=== PATIENT | female | born 1950 | race Caucasian/White ===

== ENCOUNTER 2024-04-28 13:01 | Inpatient (IN) ==
--- NOTE | 2024-04-28 13:17 | Emergency Department Note ---
Impression & Plan Bilateral lower leg cellulitis, Lymphedema ED Provider Note NAME: JOANNE JURADO AGE: 73 SEX: F : 1950 ARRIVES VIA: Walk-In INFORMANT: Patient, ED PROVIDER(S): Amos Webber MD CHIEF COMPLAINT: Bilateral leg swelling, weight gain, bilateral lower extremity redness MEDICAL DECISION MAKING: Patient presents due to concern for bilateral lower extremity edema with associated erythema bilaterally. IV was established and blood work was obtained. Patient was ordered IV Rocephin. Patient has a normal white count hemoglobin of 10.4 with normal platelet count. Kidney function is unremarkable. Procalcitonin is not elevated. Given the patient's significant swelling to believe the patient would benefit from IV diuresis. The patient was ordered IV Lasix 40 mg. I did speak the on-call hospitalist service and the patient was admitted to the medicine service. Discussion w/ other healthcare providers: Tierney Aguilera PA-C with Dr. Foster Prior /Outside records reviewed: I reviewed an outpatient visit note in the office patient is had ongoing redness and swelling in the legs. Patient was on Keflex but without significant improvement symptoms it is gained 15 pounds. No shortness of breath. Patient was seen by Enedelia Parrish PA-C. Reported low-grade temperature. Differential diagnosis: Cellulitis, abscess, MRSA infection, DVT, necrotizing fasciitis, dermatitis, drug eruption, allergic reaction, as well as other pathologies were considered. Diagnostics, as interpreted by me: ECG: Sinus rhythm, rate of 72, normal QRS, normal axis no ST elevations. Cardiac monitoring: An order was placed for continuous cardiac monitoring. The monitor shows a rate of 75 with sinus rhythm. Patient was placed on pulse oximetry Medical decision rules: None Imaging studies: I informally interpreted the patient's chest x-ray does not show obvious pneumonia or pneumothorax with formal report to follow. HPI:Patient presents due to concern for worsening leg swelling and redness in the bilateral lower extremities. The patient reports that she is currently on outpatient antibiotics. The patient was seen in the outpatient setting referred here for further evaluation and treatment. Patient is accompanied by at bedside. Patient does not follow with lymphedema clinic and reports that she has been on a diuretic Lasix. Patient states that she has gained about 15 pounds in the last several weeks. Patient denies any chest pains or shortness of breath. No falls or trauma. PAST MEDICAL HISTORY: See Below PAST SURGICAL HISTORY: See Below SOCIAL HISTORY: See Below HOME MEDICATIONS: See Below ALLERGIES: See Below VITALS: See Below PHYSICAL EXAMINATION: GENERAL: NAD, non-toxic. Wearing glasses. EYE EXAM: Normal conjunctiva. PERRL, no anisocoria and EOM's grossly intact w/o pain. OROPHARYNX: Moist mucus membranes, grossly normal dentition. NECK: Trachea midline, no stridor. LUNGS: Clear to auscultation. Normal chest wall mechanics. HEART: NSR, no MRG. ABDOMEN: Abdomen soft, non-tender, no masses, no rebound or guarding. BACK: No CVA TTP. SKIN: No rashes and no bruising. UPPER EXTREMITIES: Upper extremities are grossly normal. LOWER EXTREMITIES: Bilateral lower extremity edema with associated erythema that is circumferential distal to the bilateral knees but proximal to the bilateral ankles, no obvious open wounds to the bilateral lower extremities, nonpitting edema noted. NEURO EXAM: A&O x3, cranial nerves II-XII grossly intact, normal speech, moves all 4 extremities. Past Med/Surg History Problem List (Updated 05/03/24 @ 17:23 by Amso Webber MD) Anemia Bilateral lower leg cellulitis (Acute) Lymphedema (Acute) Hypertension Anxiety Iron deficiency anemia Venous insufficiency Bipolar disorder Medical History Aortic valve sclerosis Renal cyst Pulmonary nodule Melanoma having excision right upper arm Poor historian Abrasion, leg w/ infection left leg- being treated by Dr Waters-[facility] 07/08- started on cephalexin --was instructed to be seen in wound clinic 07/09- Depression Surgical History Hx of wisdom tooth extraction Hx of colonoscopy Hx of tubal ligation History of ankle surgery Family History Other Family history non-contributory Social History Smoking Status: Never smoker Second Hand Exposure: No; Do You Dip or Chew Tobacco: No; Hx Alcohol Use: No Hx Substance Use: No Preferred Language: Lao Communication Ability: Effective Keno Clerk Required: No Beliefs That Will Affect Care: None Current Living Situation: Spouse Feels Safe at Home: Yes Assistive Devices: Cane Allergies Allergies Allergy/AdvReac Type Severity Reaction Status Date / Time azithromycin Allergy Unknown Verified 04/28/24 16:46 codeine AdvReac Mild Nausea Verified 04/28/24 16:46 Home Meds Home Medications Medication Instructions Recorded Confirmed divalproex 500 mg tablet,delayed 500 mg PO BID 07/09/22 04/28/24 release (Depakote) losartan 50 mg tablet 50 mg PO QAM 07/09/22 04/28/24 buspirone 10 mg tablet 10 mg PO BID 04/28/24 04/28/24 cholestyramine (with sugar) 4 gram 1 ea PO BID 04/28/24 04/28/24 powder for susp in a packet ferrous sulfate 325 mg (65 mg 325 mg PO DAILY 04/28/24 04/28/24 iron) tablet folic acid 1 mg tablet 1 mg PO DAILY 04/28/24 04/28/24 potassium chloride 10 mEq 20 meq PO DAILY 04/28/24 04/28/24 tablet,extended release(part/cryst) sertraline 50 mg tablet 50 mg PO DAILY 04/28/24 04/28/24 Previous Rx's Medication Instructions Recorded amoxicillin 875 mg tablet 875 mg PO BID 7 days #14 tabs 05/01/24 doxycycline hyclate 100 mg capsule 100 mg PO BID 7 days #14 caps 05/01/24 furosemide 20 mg tablet 40 mg (2 x 20 mg) PO DAILY #90 tabs 05/01/24 Results & Data (ED) Vital Signs Vital Signs - 24 hr 04/28/24 13:07 04/28/24 13:16 04/28/24 13:39 Temperature 36.6 C 36.7 C Temperature Source Temporal Artery Scan Oral Pulse Rate 76 68 Pulse Rate from SpO2 Sensor Respiratory Rate 20 Respiratory Effort / Characteristics Non-Labored Spontaneous Respiratory Depth Normal Blood Pressure 107/61 Blood Pressure Mean 76 Pulse Oximetry 98 Oxygen Delivery Method Room Air Sepsis Recent Fever Within 48 Hours Yes Sepsis New/Unexplained Change in Mental Status N/A Sepsis Action Taken by Nursing No Action Required 04/28/24 14:00 04/28/24 14:06 04/28/24 14:18 Temperature Temperature Source Pulse Rate 67 73 Pulse Rate from SpO2 Sensor 69 Respiratory Rate 19 22 Respiratory Effort / Characteristics Respiratory Depth Blood Pressure 137/80 Blood Pressure Mean 99 Pulse Oximetry 100 Oxygen Delivery Method Sepsis Recent Fever Within 48 Hours Sepsis New/Unexplained Change in Mental Status Sepsis Action Taken by Nursing 04/28/24 14:24 04/28/24 14:30 Temperature Temperature Source Pulse Rate 69 68 Pulse Rate from SpO2 Sensor 68 Respiratory Rate 16 16 Respiratory Effort / Characteristics Respiratory Depth Blood Pressure 114/64 Blood Pressure Mean 68 Pulse Oximetry 98 100 Oxygen Delivery Method Room Air Sepsis Recent Fever Within 48 Hours Sepsis New/Unexplained Change in Mental Status Sepsis Action Taken by Longterm Medications Current Medication List: was personally reviewed by me Laboratory Data Attestation: I reviewed the patient's lab results. 05/01/24 06:51 05/01/24 06:51 Lab Results 04/28/24 Range/Units 13:20 WBC 5.44 (4.8-10.8) K/ul RBC 3.36 L (4.20-5.40) M/uL Hgb 10.4 L (12.0-16.0) g/dl Hct 32.6 L (37.0-47.0) % MCV 97.0 (80.0-100.0) fL MCH 31.0 (25.0-34.0) pg MCHC 31.9 L (32.0-36.0) g/dL RDW Std Deviation 55.5 H (36.4-46.3) fL RDW Coeff of Gutierrez 15.4 H (11.5-14.5) % Plt Count 203 (130-400) K/uL MPV 10.1 (9.4-12.4) fL Immature Gran % (Auto) 0.4 % Neut % (Auto) 59.8 % Lymph % (Auto) 22.2 % [place] % (Auto) 15.8 % Eos % (Auto) 0.9 % Baso % (Auto) 0.9 % Neut # (Auto) 3.25 (1.40-6.50) K/uL Lymph # (Auto) 1.21 (1.20-3.40) K/uL [place] # (Auto) 0.86 H (0.11-0.59) K/uL Eos # (Auto) 0.05 (0.00-0.50) K/uL Baso # (Auto) 0.05 (0.00-0.20) K/uL Immature Gran # (Auto) 0.02 (0.01-0.20) K/uL Sodium 140 (136-145) mmol/L Potassium 4.0 (3.5-5.1) mmol/L Chloride 106 (98-107) mmol/L Carbon Dioxide 29 (21-32) mmol/L Anion Gap 5 (3-11) BUN 31 H (6-23) mg/dl Creatinine 0.89 (0.6-1.2) mg/dl Est Cr Clr Drug Dosing Not Reportable Est GFR ( Amer) 74.0 ml/min Est GFR (Non-Af Amer) 63.8 ml/min BUN/Creatinine Ratio 34.8 H (10-20) Glucose 87 (70-99(Fasting)) mg/dl Calcium 9.2 (8.6-10.3) mg/dl Total Bilirubin 0.3 (0.2-1.0) mg/dl AST 11 L (13-39) U/L ALT 4 L (7-52) U/L Alkaline Phosphatase 71 (34-104) U/L B-Natriuretic Peptide 70 (0-100) pg/ml Total Protein 6.4 (6.0-8.3) gm/dl Albumin 4.0 (3.4-5.0) gm/dl Globulin 2.4 L (2.5-4.0) gm/dl Albumin/Globulin Ratio 1.7 (0.9-2) Procalcitonin < 0.02 (0-0.5) ng/ml TSH 1.628 (0.300-4.500) uIu/ml Administered Medications Discontinued Medications Acetaminophen (Acetaminophen 325 Mg Tab) 650 mg PO Q4H PRN PRN Reason: Pain or Fever Stop: 05/28/24 18:37 Last Admin: 05/01/24 15:02 Dose: 650 mg Documented By: Admin: 04/29/24 23:37 Dose: 650 mg Documented By: MARGA Buspirone HCl (Buspirone 5 Mg Tab) 10 mg PO BID MICHELE Stop: 05/28/24 20:59 Last Admin: 05/01/24 09:53 Dose: 10 mg Documented By: Admin: 04/30/24 21:27 Dose: 10 mg Documented By: Admin: 04/30/24 09:18 Dose: 10 mg Documented By: Admin: 04/29/24 21:12 Dose: 10 mg Documented By: Admin: 04/29/24 09:03 Dose: 10 mg Documented By: Admin: 04/28/24 22:57 Dose: 10 mg Documented By: MICHELLE Cholestyramine Resin (Cholestyramine Light 4 Gm Pkt) 4 gm PO 1000,2200 MICHELE Stop: 05/28/24 21:59 Last Admin: 05/01/24 11:29 Dose: 4 gm Documented By: Admin: 04/30/24 21:25 Dose: 4 gm Documented By: Admin: 04/30/24 11:00 Dose: 4 gm Documented By: Admin: 04/29/24 21:12 Dose: 4 gm Documented By: Admin: 04/29/24 10:38 Dose: 4 gm Documented By: Admin: 04/28/24 22:57 Dose: 4 gm Documented By: MICHELLE Divalproex Sodium (Divalproex Delay Release 500 Mg Tab) 500 mg PO BID MICHELE Stop: 05/28/24 20:59 Last Admin: 05/01/24 09:53 Dose: 500 mg Documented By: Admin: 04/30/24 21:26 Dose: 500 mg Documented By: Admin: 04/30/24 09:18 Dose: 500 mg Documented By: Admin: 04/29/24 21:12 Dose: 500 mg Documented By: Admin: 04/29/24 09:02 Dose: 500 mg Documented By: Admin: 04/28/24 22:57 Dose: 500 mg Documented By: MICHELLE Enoxaparin Sodium (Enoxaparin Inj 40 Mg/0.4 Ml Syr) 40 mg SQ QAM MICHELE Stop: 05/29/24 08:59 Last Admin: 05/01/24 09:58 Dose: 40 mg Documented By: Admin: 04/30/24 09:19 Dose: 40 mg Documented By: Admin: 04/29/24 09:02 Dose: 40 mg Documented By: TEE Ferrous Sulfate (Ferrous Sulfate 325 Mg Tab) 325 mg PO DAILY MICHELE Stop: 05/29/24 08:59 Last Admin: 05/01/24 09:54 Dose: 325 mg Documented By: Admin: 04/30/24 09:18 Dose: 325 mg Documented By: Admin: 04/29/24 09:03 Dose: 325 mg Documented By: TEE Folic Acid (Folic Acid 1 Mg Tab) 1 mg PO DAILY MICHELE Stop: 05/29/24 08:59 Last Admin: 05/01/24 09:55 Dose: 1 mg Documented By: Admin: 04/30/24 09:18 Dose: 1 mg Documented By: Admin: 04/29/24 09:03 Dose: 1 mg Documented By: TEE Furosemide (Furosemide 40 Mg/4 Ml Vial) 40 mg IV ONE ONE Stop: 04/28/24 15:24 Last Admin: 04/28/24 18:45 Dose: Not Given Documented By: RICKEY Furosemide (Furosemide 40 Mg/4 Ml Vial) 40 mg IV DAILY MICHELE Stop: 05/29/24 08:59 Last Admin: 04/29/24 09:01 Dose: 40 mg Documented By: TEE Furosemide (Furosemide 40 Mg/4 Ml Vial) 40 mg IV ONE ONE Stop: 04/28/24 18:04 Last Admin: 04/28/24 18:36 Dose: 40 mg Documented By: RICKEY Ceftriaxone Sodium (Rocephin) 2,000 mg in 50 mls @ 100 mls/hr IV NOW STA Stop: 04/28/24 14:07 Last Infusion: 04/28/24 14:19 Dose: Infused Documented By: Admin: 04/28/24 13:49 Dose: 100 mls/hr Documented By: MAURIZIO Piperacillin Sod/Tazobactam Sod (Zosyn) 4.5 gm in 100 mls @ 25 mls/hr IV Q8H MICHELE Stop: 05/06/24 00:00 Last Infusion: 04/29/24 15:04 Dose: Infused Documented By: Admin: 04/29/24 10:38 Dose: 25 mls/hr Documented By: Infusion: 04/29/24 05:28 Dose: Infused Documented By: Admin: 04/29/24 00:39 Dose: 25 mls/hr Documented By: MICHELLE Piperacillin Sod/Tazobactam Sod (Zosyn) 4.5 gm in 100 mls @ 200 mls/hr IV NOW STA; Protocol Stop: 04/28/24 17:27 Last Infusion: 04/28/24 18:38 Dose: Infused Documented By: Admin: 04/28/24 18:03 Dose: 200 mls/hr Documented By: RICKEY Vancomycin HCl 1,500 mg/ (Sodium Chloride) 530 mls @ 200 mls/hr IV NOW STA Stop: 04/28/24 20:14 Last Infusion: 04/28/24 22:55 Dose: Infused Documented By: Admin: 04/28/24 18:40 Dose: 200 mls/hr Documented By: AVKevyn Vancomycin HCl 750 mg/ Sodium (Chloride) 265 mls @ 200 mls/hr IV Q12 MICHELE Stop: 05/06/24 08:59 Last Infusion: 05/01/24 11:27 Dose: Infused Documented By: Admin: 05/01/24 09:47 Dose: 200 mls/hr Documented By: Infusion: 04/30/24 23:55 Dose: Infused Documented By: Admin: 04/30/24 22:26 Dose: 200 mls/hr Documented By: Infusion: 04/30/24 11:01 Dose: Infused Documented By: Admin: 04/30/24 09:26 Dose: 200 mls/hr Documented By: Infusion: 04/29/24 22:36 Dose: Infused Documented By: Admin: 04/29/24 21:14 Dose: 200 mls/hr Documented By: Infusion: 04/29/24 10:44 Dose: Infused Documented By: Admin: 04/29/24 09:01 Dose: 200 mls/hr Documented By: TEE Losartan Potassium (Losartan Potassium 50 Mg Tab) 50 mg PO QAM MICHELE Stop: 05/29/24 08:59 Last Admin: 05/01/24 09:55 Dose: 50 mg Documented By: Admin: 04/30/24 09:18 Dose: 50 mg Documented By: Admin: 04/29/24 09:03 Dose: 50 mg Documented By: TEE Miscellaneous (Patient's Height &/Or Weight Needed) 1 each N/A NOW STA Stop: 04/28/24 16:52 Last Admin: 04/28/24 18:46 Dose: 1 each Documented By: RICKEY Potassium Chloride (Potassium Chloride Crtab 20 Meq Tabcr) 20 meq PO DAILY MICHELE Stop: 05/29/24 08:59 Last Admin: 05/01/24 10:00 Dose: 20 meq Documented By: Admin: 04/30/24 09:22 Dose: 20 meq Documented By: Admin: 04/29/24 09:03 Dose: 20 meq Documented By: TEE Sertraline HCl (Sertraline Hcl 50 Mg Tablet) 50 mg PO DAILY MICHELE Stop: 05/29/24 08:59 Last Admin: 05/01/24 09:56 Dose: 50 mg Documented By: Admin: 04/30/24 09:18 Dose: 50 mg Documented By: Admin: 04/29/24 09:03 Dose: 50 mg Documented By: TEE Imaging Data Radiologist's Impression: Chest X-Ray 04/28/24 13:38 XR chest 1V portable CLINICAL HISTORY: weakness COMPARISON STUDY: Chest radiograph June 27, 2023. FINDINGS: Lung volumes are normal. Lungs are clear. There is no pneumothorax or pleural effusion. Cardiac size is normal. Mediastinal contours are normal. There is no evidence for pulmonary edema. IMPRESSION: No acute cardiopulmonary findings. ACT 112: Negative or not required by law. Electronically signed by: Azeem Saldana M.D. 04/28/2024 2:17 PM Discharge Plan Visit Data Chief Complaint: Fever Stated Complaint: FEVER, SWELLING ED Provider: Amos Webber Discharge Problem: Bilateral lower leg cellulitis, Lymphedema Patient Disposition: Admitted As Inpatient Discharge Instructions Interventions: ED Discharge Assessment Last Done: 04/28/24 18:38
[2024-04-28] MEDS: cefTRIAXone SODIUM 2,000 MG/50 ML BAG IV STA (13:49)
[2024-04-28 14:09] LABS: Basophils # (auto) 0.05 K/uL (0.00-0.20); Basophils % (auto) 0.9 %; Eosinophils # (auto) 0.05 K/uL (0.00-0.50); Eosinophils % (auto) 0.9 %; Hematocrit (blood only) 32.6 % (37.0-47.0); Hemoglobin 10.4 g/dl (12.0-16.0); Immature Granulocytes # (auto) 0.02 K/uL (0.01-0.20); Immature Granulocytes % (auto) 0.4 %; Lymphocytes # (auto) 1.21 K/uL (1.20-3.40); Lymphocytes % (auto) 22.2 %; Mean Corpuscular Hgb Conc 31.9 g/dL (32.0-36.0); Mean Platelet Volume 10.1 fL (9.4-12.4); Monocytes # (auto) 0.86 K/uL (0.11-0.59); Monocytes % (auto) 15.8 %; Neutrophils # (auto) 3.25 K/uL (1.40-6.50); Neutrophils % (auto) 59.8 %; Platelet Count 203 K/uL (130-400); RDW Coefficient of Variation 15.4 % (11.5-14.5); RDW Standard Deviation 55.5 fL (36.4-46.3); Red Blood Count 3.36 M/uL (4.20-5.40); White Blood Count 5.44 K/ul (4.8-10.8)
--- NOTE | 2024-04-28 14:19 | XRay Report ---
XR chest 1V portable CLINICAL HISTORY: weakness COMPARISON STUDY: Chest radiograph June 27, 2023. FINDINGS: Lung volumes are normal. Lungs are clear. There is no pneumothorax or pleural effusion. Car diac size is normal. Mediastinal contours are normal. There is no evidence for pulmonary edema. IMPRESSION: No acute cardiopulmonary findings. ACT 112: Negative or not required by law. Electronically signed by: Azeem Saldana M.D. 04/28/2024 2:17 PM
[2024-04-28 14:23] LABS: Alanine Aminotransferase 4 U/L (7-52); Albumin Globulin Ratio 1.7 (0.9-2); Alkaline Phosphatase 71 U/L (34-104); Anion Gap 5 (3-11); Aspartate Aminotransferase 11 U/L (13-39); BUN Creatinine Ratio 34.8 (10-20); Bilirubin,Total 0.3 mg/dl (0.2-1.0); Blood Urea Nitrogen 31 mg/dl (6-23); Calcium 9.2 mg/dl (8.6-10.3); Carbon Dioxide 29 mmol/L (21-32); Chloride 106 mmol/L (98-107); Est GFR (Non-African American) 63.8 ml/min; Globulin 2.4 gm/dl (2.5-4.0); Glucose 87 mg/dl (70-99(Fasting)); Sodium 140 mmol/L (136-145); Total Protein 6.4 gm/dl (6.0-8.3)
--- NOTE | 2024-04-28 14:32 | Electrocardiogram Report ---
Test Reason : Blood Pressure : */* mmHG Vent. Rate : 72 BPM Atrial Rate : 72 BPM P-R Int : 206 ms QRS Dur : 78 ms QT Int : 386 ms P-R-T Axes : 96 -5 36 degrees QTcB Int : 422 ms Normal sinus rhythm Anteroseptal infarct (cited on or before 27-Jun-2023) Abnormal ECG When compared with ECG of 27-Jun-2023 14:16, Questionable change in initial forces of Anterior leads Nonspecific T wave abnormality no longer evident in Lateral leads Confirmed by Pilo Rodriguez ([id number]) on 04/28/2024 2:31:37 PM Referred By: REFERRED SELF Confirmed By: Pilo Rodriguez
[2024-04-28 14:37] LABS: Thyroid Stimulating Hormone 1.628 uIu/ml (0.300-4.500)
--- NOTE | 2024-04-28 15:45 | History & Physical Report ---
<Statement entered by Reji Foster, - 04/28/24 18:50> I have seen and examined the patient and have discussed the case with the provider above. I have reviewed the advanced practitioner's documentation, and I agree with, and take responsibility for that plan of care. 15 minutes spent in coordination of care with YOLANDE. Patient seen and examined while still in the ED. Bilateral lower extremities swollen, erythematous, warm with venous streaking up the medial aspect of the thighs Plan of care as outlined below Date of Service April 28, 2024 Assessment & Plan (1) Bilateral lower leg cellulitis: Plan: This is a 73 y/o female with chronic lymphedema, venous stasis, DIAMOND, HTN, prior malignant melanoma, bipolar, depression/anxiety and other history as outlined below who presents to the ED with worsening leg edema and redness over the last several days. Clinical picture seems most consistent with cellulitis on top of her underlying chronic venous stasis changes and lymphedema. She also notes worsening lower extremity edema, which is likely in part due to noncompliance with her furosemide and chronic medication regimen. - Admit to med telemetry - Broaden antibiotic coverage with Zosyn and Vancomycin for now - check MRSA swab - Wound care consult for compression therapy, check ABIs (2) Lymphedema: Plan: Worsening edema, suspect in part due to noncompliance with med regimen Will give IV furosemide 40 mg daily for now Update ECHO - last in 2021 with normal LVEF Compression therapy per wound care nurse (3) Hypertension: Plan: Chronic, stable Continue outpatient regimen (4) Venous insufficiency: Plan: Chronic, see plan for #1 (5) Bipolar disorder: Plan: Chronic Continue home regimen Plan Pt seen and reviewed with collaborating physician, Dr. Foster. Plan of care discussed and as outlined above. Code Status: Full code DVT Prophylaxis: Lovenox Admit to med telemetry, PT/OT evaluations Fabian Aguilera PA-C History of Present Illness Chief Complaint: leg swelling, redness Primary Care Provider: Marilia Padilla PA-C This is a 73 y/o female with chronic lymphedema, venous stasis, DIAMOND, HTN, prior malignant melanoma, bipolar, depression/anxiety and other history as outlined below who presents to the ED with worsening leg edema and redness over the last several days. History from the patient is somewhat difficult to follow due to her memory issues and tangentiality so additional history was obtained from her at the bedside and from review of her PCP notes from the last six months. Pt has a history of chronic lymphedema and venous stasis for the last several months but apparently this had been improving somewhat when she saw her PCP in February. However, she admits to taking her medications inconsistently and just recently restarted the furosemide daily. She currently has home health nursing who comes about once a week although not on a consistent day so the interval between visits may vary. On 04/17, home nursing notified pt's PCP office that pt was having increased edema and redness in her legs so a ten day course of cephalexin was called in. Pt reports that she has been taking this as prescribed but also states that she still has several pills left to take. When home nursing was there again on Friday, they noted that patient's weight was up 15 lbs from baseline and that the redness and swelling seemed worse. According to review of the chart, they also noted that patient was getting short of breath with exertion but patient and her adamantly deny this. Pt was seen by PCP office today in follow-up and was referred to the ED for evaluation of cellulitis not responding to oral therapy. Pt reports a subjective fever at home this morning, which was new. She uses a cane to ambulate around the home and a walker when she is out of the home. Allergies Allergy/AdvReac Type Severity Reaction Status Date / Time azithromycin Allergy Unknown Verified 04/28/24 16:46 codeine AdvReac Mild Nausea Verified 04/28/24 16:46 Home Medications Medication Instructions Recorded Confirmed Type divalproex 500 mg tablet,delayed 500 mg PO BID 07/09/22 04/28/24 History release (Depakote) losartan 50 mg tablet 50 mg PO QAM 07/09/22 04/28/24 History cephalexin 500 mg capsule 500 mg PO TID 07/15/22 04/28/24 History buspirone 10 mg tablet 10 mg PO BID 04/28/24 04/28/24 History cholestyramine (with sugar) 4 gram 1 ea PO BID 04/28/24 04/28/24 History powder for susp in a packet ferrous sulfate 325 mg (65 mg 325 mg PO DAILY 04/28/24 04/28/24 History iron) tablet folic acid 1 mg tablet 1 mg PO DAILY 04/28/24 04/28/24 History furosemide 20 mg tablet 40 mg PO DAILY 04/28/24 04/28/24 History potassium chloride 10 mEq 20 meq PO DAILY 04/28/24 04/28/24 History tablet,extended release(part/cryst) sertraline 50 mg tablet 50 mg PO DAILY 04/28/24 04/28/24 History Past Med/Surg History Problem List (Updated 04/28/24 @ 18:14 by Yenifer Aguilera PA-C) Bilateral lower leg cellulitis Lymphedema Hypertension Anxiety Iron deficiency anemia Venous insufficiency Bipolar disorder Medical History Aortic valve sclerosis Renal cyst Pulmonary nodule Melanoma having excision right upper arm Poor historian Abrasion, leg w/ infection left leg- being treated by Dr Ward 07/08- started on cephalexin --was instructed to be seen in wound clinic 07/09- Depression Surgical History Hx of wisdom tooth extraction Hx of colonoscopy Hx of tubal ligation History of ankle surgery Family History Other Family history non-contributory Social History Smoking Status: Never smoker Second Hand Exposure: No; Do You Dip or Chew Tobacco: No; Hx Alcohol Use: No Hx Substance Use: No Preferred Language: Lithuanian Communication Ability: Effective Beaver Trapper Required: No Beliefs That Will Affect Care: None Current Living Situation: Spouse Feels Safe at Home: Yes Assistive Devices: Cane and Glasses Review of Systems Review of Systems: All systems reviewed & are unremarkable except as noted in HPI & below Constitutional: + fever and + fatigue; no anorexia Ear, Nose, Mouth, Throat: no nasal congestion and no sore throat Respiratory: no cough and no dyspnea Cardiovascular: + edema; no chest pain and no palpitatio ns Gastrointestinal: no nausea and no vomiting Genitourinary: no dysuria and no hematuria Neurologic: no syncope and no headache(s) Psychiatric: + anxiety Physical Exam Physical Exam: General: awake, alert, NAD HEENT: no scleral icterus, moist oral mucosa Neck: supple, trachea midline Heart: RRR Lungs: CTA bilaterally Abdomen: soft, NT, +BS Extremities: 3+ edema to just above knees bilaterally, erythema and chronic stasis changes noted from feet to knees, erythema extends above knee on the medial aspect of legs bilaterally, +warmth, no drainage or open areas noted at present. Neurologic: Ox3, moving all extremities, no focal deficits Results & Data Results & Data Vital Signs (Past 12 Hours) Vital Signs Temp Pulse Resp BP Pulse Ox O2 Del Method 04/28/24 14:30 68 16 114/64 100 Room Air 04/28/24 14:24 69 16 98 04/28/24 14:18 73 22 04/28/24 14:06 67 19 100 04/28/24 14:00 137/80 04/28/24 13:39 68 04/28/24 13:16 36.7 C 04/28/24 13:07 36.6 C 76 20 107/61 98 Room Air Laboratory Results Lab Results 04/28/24 Range/Units 13:20 WBC 5.44 (4.8-10.8) K/ul RBC 3.36 L (4.20-5.40) M/uL Hgb 10.4 L (12.0-16.0) g/dl Hct 32.6 L (37.0-47.0) % MCV 97.0 (80.0-100.0) fL MCH 31.0 (25.0-34.0) pg MCHC 31.9 L (32.0-36.0) g/dL RDW Std Deviation 55.5 H (36.4-46.3) fL RDW Coeff of Gutierrez 15.4 H (11.5-14.5) % Plt Count 203 (130-400) K/uL MPV 10.1 (9.4-12.4) fL Immature Gran % (Auto) 0.4 % Neut % (Auto) 59.8 % Lymph % (Auto) 22.2 % Irion % (Auto) 15.8 % Eos % (Auto) 0.9 % Baso % (Auto) 0.9 % Neut # (Auto) 3.25 (1.40-6.50) K/uL Lymph # (Auto) 1.21 (1.20-3.40) K/uL Irion # (Auto) 0.86 H (0.11-0.59) K/uL Eos # (Auto) 0.05 (0.00-0.50) K/uL Baso # (Auto) 0.05 (0.00-0.20) K/uL Immature Gran # (Auto) 0.02 (0.01-0.20) K/uL Sodium 140 (136-145) mmol/L Potassium 4.0 (3.5-5.1) mmol/L Chloride 106 (98-107) mmol/L Carbon Dioxide 29 (21-32) mmol/L Anion Gap 5 (3-11) BUN 31 H (6-23) mg/dl Creatinine 0.89 (0.6-1.2) mg/dl Est Cr Clr Drug Dosing Not Reportable Est GFR ( Amer) 74.0 ml/min Est GFR (Non-Af Amer) 63.8 ml/min BUN/Creatinine Ratio 34.8 H (10-20) Glucose 87 (70-99(Fasting)) mg/dl Calcium 9.2 (8.6-10.3) mg/dl Total Bilirubin 0.3 (0.2-1.0) mg/dl AST 11 L (13-39) U/L ALT 4 L (7-52) U/L Alkaline Phosphatase 71 (34-104) U/L B-Natriuretic Peptide 70 (0-100) pg/ml Total Protein 6.4 (6.0-8.3) gm/dl Albumin 4.0 (3.4-5.0) gm/dl Globulin 2.4 L (2.5-4.0) gm/dl Albumin/Globulin Ratio 1.7 (0.9-2) Procalcitonin < 0.02 (0-0.5) ng/ml TSH 1.628 (0.300-4.500) uIu/ml Diagnostic Findings Chest X-Ray 04/28/24 13:38 XR chest 1V portable CLINICAL HISTORY: weakness COMPARISON STUDY: Chest radiograph June 27, 2023. FINDINGS: Lung volumes are normal. Lungs are clear. There is no pneumothorax or pleural effusion. Cardiac size is normal. Mediastinal contours are normal. There is no evidence for pulmonary edema. IMPRESSION: No acute cardiopulmonary findings. ACT 112: Negative or not required by law. Electronically signed by: Azeem Saldana M.D. 04/28/2024 2:17 PM Medications Administered Discontinued Medications Ceftriaxone Sodium (Rocephin) 2,000 mg in 50 mls @ 100 mls/hr IV NOW STA Stop: 04/28/24 14:07 Last Infusion: 04/28/24 14:19 Dose: Infused Documented By: Admin: 04/28/24 13:49 Dose: 100 mls/hr Documented By: NDW (3) Hypertension Hypertension type: unspecified Qualified Code(s): I10 - Essential (primary) hypertension (5) Bipolar disorder Active/Remission status: remission status unspecified Qualified Code(s): F31.9 - Bipolar disorder, unspecified
[2024-04-28] MEDS ORDERED: VANCOMYCIN HCL IV ONE (16:14)
[2024-04-28] MEDS ORDERED: SODIUM CHLORIDE 0.9% IV ONE (16:14)
[2024-04-28] MEDS ORDERED: VANCOMYCIN CONSULT ACTIVE PRN (16:14)
--- NOTE | 2024-04-28 17:43 | Ultrasound Report ---
US ankle/brachial index ltd HISTORY: 73 years-old Female lymphedema COMPARISON: None TECHNIQUE: Segmental pressures of the lower extremities were obtained FINDINGS: Right: Brachial 156. Dorsalis pedis, 112 (0.72); posterior tibial, 139 (0.89); JEFFREY-0.89 Left: Brachial 156. Dorsalis pedis, 143 (0.92); posterior tibial, 155 (0.99); JEFFREY-0.99 IMPRESSION: Bilateral ABIs are within normal limits. ACT 112: Negative or not required by law. The above report was generated using voice recognition software. It may contain grammatical, syntax o r spelling errors. Electronically signed by: Cristhian Interiano M.D. 04/28/2024 5:41 PM
[2024-04-28] MEDS: 4.5GM X1 IV STA (18:03)
[2024-04-28] MEDS: FUROSEMIDE 40 MG/4 ML VIAL IV ONE ×2 (18:36→18:45)
[2024-04-28] MEDS: VANCOMYCIN HCL 1,500 MG in SODIUM CHLORIDE 0.9% 500 ML IV STA (18:40)
[2024-04-28] MEDS: Patient's HEIGHT &/or WEIGHT Needed STA (18:46)
--- OUTSIDE RECORDS SUMMARY | 2024-04-28 21:05 | External Medical Summary | Summary of Care ---
Author Name Unknown Organization [facility] Address [address] [place] [address] Phone [phone] Care Team Providers Care Online Program Coordinator Name Role Phone Janay Waters MD Primary Care Provide r Reason for Visit * Reason Onset Date Comments Home Health 04/26/2024 Encounter Details Date Type Department Care Team (Late st Contact Info) Description 04/26/2024 Telephone Family Medicine [address] [phone] Janay Waters MD [address] [place] [id number] Home Health Allergies Active Allergy Reactions Criticality Noted Date Comments Azithromycin Nausea/vomiting High 09/03/2017 Codeine Low 08/05/2014 Other Reaction(s): Nausea, Not available, Vomiting documented as of this encounter (statuses as of 04/26/2024) Medications Medication Sig Dispensed Refills Start Date End Date Status Divalproex Sodium ER 500 MG Oral Tablet Extended Release 24 Hour (Depakote ER)Indications:Bipol ar disorder in partial remission, most recent episode unspecified type (HCC) Take 1 Tablet (500 mg) by mouth in the morning and 1 Tablet (500 mg) before bedtime. 60 Tablet 2 08/02/2022 Active Furosemide 20 MG Oral Tablet (Lasix)Indications:H ypertension goal BP (blood pressure) < 140/90,Bilateral lower extremity edema,Bilateral leg edema Take 2 Tablets by mouth in the morning. 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 90 Tablet 3 06/06/2023 Active Losartan Potassium 50 MG Oral Tablet (Cozaar) TAKE 1 TABLET BY MOUTH EVERY MORNING 90 Tablet 2 09/18/2023 Active Cholestyramine 4 GM Oral Packet (Questran) Take 1 Packet by mouth in the morning and 1 Packet before bedtime. mixed with liquid.. 180 Packet 1 11/24/2023 Active Ferrous Sulfate 325 (65 Fe) MG Oral Tablet (Feosol) Take 1 Tablet by mouth daily with breakfast. 90 Tablet 1 01/23/2024 Active Potassium Chloride Rose ER 10 MEQ Oral Tablet Extended ReleaseIndications:H ypokalemia TAKE TWO TABLETS BY MOUTH IN THE MORNING 90 Tablet 1 02/08/2024 Active Sertraline HCl 50 MG Oral Tablet (Zoloft) Take 1 Tablet by mouth in the morning. 02/17/2024 Active busPIRone HCl 10 MG Oral Tablet (Buspar)Indications: Anxiety Take 1 Tablet by mouth in the morning and 1 Tablet before bedtime. 60 Tablet 3 03/09/2024 Active Cephalexin 500 MG Oral Capsule Take 1 Capsule by mouth in the morning and 1 Capsule at noon and 1 Capsule before bedtime. Do all this for 10 days. 30 Capsule 04/17/2024 04/27/2024 Active documented as of this encounter (statuses as of 04/26/2024) Active Problems Problem Noted Date Diagnosed Date Iron deficiency anemia 02/06/2024 Diarrhea 06/26/2023 Hypokalemia 06/26/2023 Right middle lobe pulmonary nodule 01/16/2023 Lymphedema due to chronic inflammation 3 Current moderate episode of major depressive disorder without prior episode 08/02/2022 Anxiety 08/02/2022 Malignant melanoma of right upper extremity 06/15 Hx of melanoma of skin 06/18/2022 Overview: Invasive malignant melanoma, spindled type, extending to a depth of at least 4.0 mm, at least Luis's level IV, 3 mitoses (R forearm 06/06) Aortic valve sclerosis 04/19/2022 Bilateral leg edema 04/17/2022 Urinary incontinence 03/31/2018 Venous insufficiency 07/17/2017 Varicose vein of leg 12/16/2016 Hypertension goal BP (blood pressure) < 140/90 Bipolar disorder Renal cyst documented as of this encounter (statuses as of 04/26/2024) Resolved Problems Problem Noted Date Diagnosed Date Resolved Date Hematuria 12/16/2016 07/17/2017 documented as of this encounter (statuses as of 04/26/2024) Immunizations Name Administration Dates Next Due COVID-19 mRNA, LNP-s, No Pre serve, 2-Dose Series (Moderna) 08/26/2023 COVID-19 mRNA, LNP-s, No Pre serve, 2-Dose Series (Pfizer) 11/13/2020,10/16/2020 Pneumococcal Conjugate Vacc, 13 Valent (Prevnar) 01/23/2017 Pneumococcal Polysaccharide PPV23 (Pneumovax) ,09/15/1998 Seasonal Influenza Virus Vac cine, Unspecified Formulation 06/15/2012,09/15/1998 Seasonal Influenza, Quadrivalent Hd (Fluzone Hd) 06/04/2023 Seasonal Influenza, Quadrivalent Hd, 65+ Yrs Seasonal Influenza, Split, IIV3, With Preserve, Inj 06/16/2017,06/30/2015 Seasonal Influenza, Trivalen t, High Dose, No Preserve, IM 06/30/2015 TDAP (age 10 and older)(Boostrix) 03/15/2018,09/1997 documented as of this encounter Social History Tobacco Use Types Packs/Day Years Used Date Smoking Tobacco: Never Passive Smoke Exposure: Never Smokeless Tobacco: Never Alcohol Use Standard Drinks/Week Comments No 0 (1 standard drink = 0.6 oz pur e alcohol) PHQ-2 Answer Date Recorded PHQ Adult Total Score 1 01/22/2024 Hunger Vital Sign Answer Date Recorded Within the past 12 months, y ou worried that your food would run out before you got the money to buy more. Never true 01/30/20 24 Within the past 12 months, t he food you bought just didn't last and you didn't have money to get more. Never true 01/30/2024 Childcare Answer Date Recorded Do you feel overwhelmed with taking care of a child, family member or friend? No 01/30/2024 Does your family need help f inding childcare? (Household - for ages 0-17 years) Not on file 01/30/2024 Clothing Answer Date Recorded Have you been unable to get clothing when it was really needed? No 01/30/2024 Is your family able to get c lothes or diapers when needed? (Household - for ages 0-17 years) Not on file 01/30/2024 Personal Safety Answer Date Recorded Do you feel unsafe or have concerns for your saf ety? No 01/30/2024 Do you have concerns for you r family's safety? (Household - for ages 0-17 years) Not on file 01/30/2024 Utilities Answer Date Recorded Do you have trouble paying y our heating, water, or electric bill? No 01/30/2024 Is your family able to pay t he heat, water, or electric bill? (Household - for ages 0-17 years) Not on file 01/30/2024 Does your family have access to good internet? (Household - for ages 0-17 years) Not on file 01/30/2024 Employment Status Answer Date Recorded Are you unemployed or without regular income? No 01/30/2024 Does the household have a re gular source of income? (Household - for ages 0-17 years) Not on file 01/30/2024 Social Connections Answer Date Recorded How often do you feel lonely or isolated from th ose around you? Often 01/30/2024 Financial Resource Strain Answer Date R ecorded Do you have any trouble payi ng for your medications, or do you think you might in the future? No 01/30/2024 Does your family have troubl e paying for medicine? (Household - for ages 0-17 years) Not on file 01/30/2024 Transportation Needs Answer Date Record ed READ ONLY Do you have troubl e getting a ride to medical visits or work? Never True 01/30/2024 Does your family have a hard time getting a ride to doctors visits? (Household - for ages 0-17 years) Not on file 01/30/2024 Has lack of transportation k ept you from medical appointments, meetings, work, or from getting things needed for daily living? Check all that apply. (Adult - for ages 18 years and over) Not on file 01/30/2024 Do you (or your family) have trouble finding or paying for a ride (transportation)? (Household - for ages 0-17 years) Not on file 01/30/2024 Housing Stability Answer Date Recorded Do you currently live in a s helter or have no steady place to sleep at night? No 01/30/2024 READ ONLY Do you think you a re at risk of becoming homeless? No 01/30/2024 Does your family worry about paying for your home or becoming homeless? (Household - for ages 0-17 years) Not on file 0 01/30/2024 Are you homeless or worried that you might be in the future? (Adult - for ages 18 years and over) Not on file Are you (or your family) bala eless or worried that you might be in the future? (Household - for ages 0-17 years) Not on file Food Insecurity Answer Date Recorded Do you need food for this week? No 01/30/2024 Are you able to get enough f ood for your family? (Household - for ages 0-17 years) Not on file 01/30/2024 Does your family need food t his week? (Household - for ages 0-17 years) Not on file 01/30/2024 Do you always have enough fo od for your family? (Household - for ages 0-17 years) Not on file 01/30/2024 Sex and Gender Information Value Date Recorded Sex Assigned at Female 01/22/2024 3:34 PM EDT Gender Identity Female 01/22/2024 3:34 PM EDT Sexual Orientation Straight 01/22/2024 3: 34 PM EDT Job Start Date Occupation Industry Not on file Not on file Not on file documented as of this encounter Miscellaneous Notes * Telephone Encounter - Jamila Ervin RN - 04/26/2024 2:00 PM EDT Appt given * Telephone Encounter - Jamila Ervin RN - 04/26/2024 1:50 PM EDT Pt never returned our call from last week, did she start the Keflex? ( Sent to [facility]) She needs an appt * Telephone Encounter - Sarika Sung LPN - 04/26/2024 1:32 PM EDT HH Concerns Aly, Calling from: [facility] Report/Concerns of: weight fluctuation and edema bilaterally Symptoms: sob- exertion greater than 20 feet. Vitals: T 97.4 P 74 RR 18 BP 110/60 SP O2 99 on room air Lung sounds diminished in the bases. Last week was clear. Weight 131.8 today Blood sugar n/a Narrative: RAY Chang calling from [facility] . 131.2 on 04/20/24 which was last visit. 133.0 on 04/24/24 131.8 - today Increased edema to bilateral lower extremities. Cellulitis is improving, but the edema has not. Sob with exertion if she goes more than 20 feet. She has plus 3 pitting edema bilaterally. Calf measurements 04/20/24 left 46.5 cm, on right 45 cm Today's 48 cm on left and right is 45.5 cm Having pain 2/10 bilateral lower extremities. Patient has had her 40 mg of lasix this morning. Call back Charlene with any advice or orders at [phone] Patient is not in distress. Called office. Spoke to Jamila. Will address. Please fax new orders to [phone] documented in this encounter Plan of Treatment Upcoming Encounters Date Type Department Care Team (Late st Contact Info) Description 04/28/2024 12:00 PM EDT Office Visit Family Medicine [address] [place] [phone] Maria Luz Vora PA-C [address] [place] [address] [place] [id number] 07/02/2024 2:00 PM EDT Office Visit Neurology [facility] [place] [address] [place] [phone] Greta Valverde CRNP [address] [place] [address] 07/05/2024 2:30 PM EDT Laboratory Laboratory [address] [place] [phone] [address] [place] [id number] 08/11/2024 2:45 PM EST Office Visit Hematology/Oncology [facility] [address] [facility] [place] [phone] Walter Quintero MD [address] [facility] [place] [address] 09/09/2024 1:30 PM EST Nurse Only Ancillary [address] [place] [address] [place], Nurse Annual [address] [place] [address] 11/10/2024 3:20 PM EST Office Visit Family Medicine [address] [place] [phone] Janay Waters MD [address] [place] [address] [place] [id number] Health Maintenance Due Date Last Done Comments Cologuard 1994 Fecal Occult Blood Test 1994 Sigmoidoscopy 1994 Zoster Vaccines (1 of 2) 1999 Adult Wellness Visit 06/03/2018 06/03/2017 Colonoscopy 08/17/2023 08/17/2013 Colorectal Cancer Screening 08/17/2023 COVID-19 Vaccine ( season) 2023 08/26/2023, 08/26/2023, 11/13/2020, Additional history exists DXA Scan 12/27/2023 12/26/2016, 12/24/2016 Influenza Vaccine (FLU shot) (#1) 2024 06/04/2023, 05/08/2022, 06/16/2017, Additional history exists Mammogram 06/06/2024 06/06/2023, 05/17, 07/15/2013, Additional history exists Depression Monitoring 01/21/2025 01/22/2024 GFR 03/09/2025 03/09/2024, 05/2024, 07/17/2023, Additional history exists Albumin/Creatinine Ratio 05/13/2025 05/13/2022 Lipid Panel 04/17/2027 04/17/2022, 10/2016, 04/11/2016 DTaP,Tdap,and Td Vaccines (3 - Td or Tdap) 03/15/2028 03/15/2018, 09/15/1997 Pneumococcal Vaccine: 65+ Years Completed 05/12/2018, 01/23/2017, 09/15/1998 HPV (Gardasil) Vaccine Aged Out No lo nger eligible based on patient's age to complete this topic Hepatitis B Vaccine Aged Out No longe r eligible based on patient's age to complete this topic MENINGOCOCCAL (MENACTRA/MENVEO) Aged Out No longer eligible based on patient's age to complete this topic documented as of this encounter Medical Devices Not on filedocumented as of this encounter Additional Health Concerns Infection Onset Date Last Indicated Resolved Time Tuberculosis Rule-Out 02/21/2023 02/21/2023 documented as of this encounter Care Teams Online Program Coordinator Relationship Specialty Start Date End Date Janay Waters MD [address] [place] [address] [place] [id number] PCP - General Family Medicine 05/02/22 documented as of this encounter
--- OUTSIDE RECORDS SUMMARY | 2024-04-28 21:05 | External Medical Summary | Summary of Care ---
Author Name Unknown Organization [facility] Address [address] [place] [address] Phone [phone] Care Team Providers Care Organ Pipe Voicer Name Role Phone Janay Waters MD Primary Care Provide r Reason for Visit * Reason Onset Date Comments Advice 04/05/2024 Dr. Quintero Encounter Details Date Type Department Care Team (Late st Contact Info) Description 04/05/2024 Telephone Hematology/Oncology [facility] 200 [facility] [place] [place] [phone] Walter Quintero MD 200 [facility] [place] [place] [address] Advice (Dr. 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 60 Tablet 2 08/02/2022 Active Furosemide 20 MG Oral Tablet (Lasix)Indications:Hy pertension goal BP (blood pressure) < 140/90,Bilateral lower extremity edema,Bilateral leg edema Take 2 Tablets by mouth in the morning. 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 02/17/2024 Active busPIRone HCl 10 MG Oral Tablet (Buspar)Indications:A nxiety Take 1 Tablet by mouth in the morning and 1 Tablet before bedtime. 60 Tablet 3 03/09/2024 Active documented as of this encounter (statuses as of 04/05/2024) Active Problems Problem Noted Date Diagnosed Date [...] as of this encounter (statuses as of 04/05/2024) Resolved Problems Problem Noted Date Diagnosed Date Resolved Date Hematuria 12/16/2016 07/17/2017 documented as of this encounter (statuses as of 04/05/2024) Immunizations Name Administration Dates Next Due COVID-19 [...] No 01/30/2024 Does the household have a [facility] source of income? (Household - for ages [...] encounter Miscellaneous Notes * Telephone Encounter - Gisele Dubon OSA - 04/05/2024 1:35 PM EDT lmom * Telephone Encounter - Gisele Dubon OSA - 04/05/2024 10:13 AM EDT Scheduled and will call pt later today * Telephone Encounter - Washington Stoenr RN - 04/05/2024 9:37 AM EDT Called patient back and relayed results to her. Scheduling- please schedule patient for repeat lab work at the end of June in [facility] "CBCD,Ferritin,Iron". Please call the patient this afternoon to tell her the date and time of the lab work per her request. Thanks. * Telephone Encounter - Carlos Sage OSA - 04/05/2024 9:12 AM EDT Pt called back for test results. * Telephone Encounter - Kathy Kuo LPN - 04/05/2024 8:30 AM EDT Left message on patient's voicemail, return phone number provided. * Telephone Encounter - Kathy Kuo LPN - 04/05/2024 8:28 AM EDT ----- Message from Walter Quintero MD sent at 04/03/2024 8:08 AM EDT ----- Blood workup done on 04/02/2024: - H&H of 10/32.5, MCV 99, normal WBC and normal platelet count - Ferritin level -> 301 - Serum iron: 44, TIBC 290, iron saturation 15%. She received IV iron in the form Venofer x 2 (02/13/2024 and 02/27/2024). Slight improvement of the hemoglobin level, improvement of the iron storage noted. Will observe. Repeat CBCD ferritin, iron profile in about 3 months. documented in this encounter Plan of Treatment Upcoming Encounters Date Type Department Care Team (Late st Contact Info) Description 07/02/2024 2:00 PM EDT Office Visit Neurology [address] [place] [phone] Greta Valverde CRNP [address] [place] [address] 07/05/2024 2:30 PM EDT Laboratory Laboratory [address] [place] [phone] [facility] [address] [place] [address] 08/11/2024 2:45 PM EST Office Visit Hematology/Oncology [facility] 200 [facility] [place] [phone] Walter Quintero MD 200 [facility] [place] [address] 09/09/2024 1:30 PM EST Nurse Only Ancillary [address] [place] [address] [place], Nurse Annual [address] [place] [address] 11/10/2024 3:20 PM EST Office Visit Family Medicine [address] [place] [phone] Janay Waters MD [address] [place] [address] [place] [address] Health Maintenance Due Date Last Done Comments Cologuard 1994 Fecal Occult Blood Test 1994 Sigmoidoscopy 1994 Zoster Vaccines (1 of 2) 1999 Colonoscopy 08/17/2023 08/17/2013 Colorectal Cancer Screening 08/17/2023 [...] Vaccine: 65+ Years Completed 05/12/2018, 01/23/2017, 09/15/1998 *BASELINE EKG FOR HTN Completed 04/17/2022 HPV (Gardasil) Vaccine Aged Out No lo [...] documented as of this encounter Care Teams Organ Pipe Voicer Relationship Specialty Start Date End Date Janay Waters MD [address] [place] [address] [place] [address] PCP - General Family Medicine 05/02/22 documented as of this encounter
--- OUTSIDE RECORDS SUMMARY | 2024-04-28 21:05 | External Medical Summary | Summary of Care ---
Author Name Unknown Organization [facility] Address [address] [place] [address] Phone [phone] Care Team Providers Care Quill Skinner Name Role Phone Janay Waters MD Primary Care Provide r Reason for Visit * Reason Onset Date Comments Advice 04/05/2024 Dr. Quintero Encounter Details Date Type Department Care Team (Late st Contact Info) Description 04/05/2024 Telephone Hematology/Oncology [facility] 200 [facility] [place] [phone] Walter Quintero MD 200 [facility] [place] [address] Advice (Dr. Quintero) Allergies Active Allergy Reactions [...] No 01/30/2024 Does the household have a [facility] source of income? (Household - for [...] later today * Telephone Encounter - Washington Stoner RN - 04/05/2024 9:37 AM EDT Called patient back and relayed results to her. Scheduling- please schedule patient for repeat lab work at the end of June in [facility] "CBCD,Ferritin,Iron". Please call the patient this afternoon [...] 07/02/2024 2:00 PM EDT Office Visit Neurology [facility] [place] [facility] [address] Greta Valverde CRNP [address] [place] [address] 07/05/2024 2:30 PM EDT Laboratory Laboratory [address] [place] [phone] [place] [address] [place] [address] 08/11/2024 2:45 PM EST Office Visit Hematology/Oncology [facility] 200 [facility] [place] [phone] Walter Quintero MD 200 [facility] [place] [address] 09/09/2024 1:30 PM EST Nurse Only Ancillary [address] [place] [address] [place], Nurse Annual [address] [place] [address] 11/10/2024 3:20 PM EST Office Visit Family Medicine [address] [place] [phone] Janay Waters MD [address] [place] [address] [place] [address] Health Maintenance Due Date Last Done Comments [...] documented as of this encounter Care Teams Quill Skinner Relationship Specialty Start Date End Date Janay Waters MD [address] [place] [address] [place] [address] PCP - General Family Medicine 05/02/22 documented as of this encounter
--- OUTSIDE RECORDS SUMMARY | 2024-04-28 21:05 | External Medical Summary | Summary of Care ---
Author Name Unknown Organization [facility] Address [address] [place] [address] Phone [phone] Care Team Providers Care Rn Internal Medicine Name Role Phone Janay Waters MD Primary Care Provide r Reason for Visit * Reason Onset Date Comments FYI 04/17/2024 cellulits Med Request 04/17/2024 Encounter Details Date Type Department Care Team (Late st Contact Info) Description 04/17/2024 Telephone Family Medicine [address] [phone] Janay Waters MD [address] [place] [address] [place] [address] FYI (cellulits); Med Request Allergies Active Allergy Reactions Criticality Noted Date [...] nodule 01/16/2023 Lymphedema due to chronic inflammation Current moderate episode of major depressive disorder [...] No 01/30/2024 Does the household have a [facility] source of income? (Household - for ages [...] Encounter - Jamila Ervin RN - 04/26/2024 1:49 PM EDT see other encounter * Telephone Encounter - Naomie Jules LPN - 04/17/2024 4:16 PM EDT Left message for patient to return call. Please make patient aware of Dr. Mercado's message below. (Okay for call center to relay info).Please assist with schedule office visit on Friday. * Telephone Encounter - Talisha Almaguer MD - 04/17/2024 3:35 PM EDT Recommend starting Keflex today and schedule acute appt in PCP office on Friday * Telephone Encounter - Meri Mi LPN - 04/17/2024 2:46 PM EDT Has no fever or chills, has pain of 3 out of 10 in both lower extremities, red and no blisters forming, has swelling and warm to touch both lower legs, no itching and has no drainage at this time. * Telephone Encounter - Talisha Almaguer MD - 04/17/2024 12:49 PM EDT Please call to get better assessment of symptoms, including: Fever/ chills? Pain? Describe the rashes? Confirm pharmacy for possible antibiotic. Schedule acute appt for Friday please. * Telephone Encounter - Zulma Douglass OSA - 04/17/2024 11:45 AM EDT Charlene with [facility] reporting the beginnings of cellulitis in both legs. Red and warmto touch. No drainage.Pain 3 out of 10. Requesting possible antibiotic. Vitals are stable: Temp: 97.4 HR 90 Resp 18 BP 120/60 Oxygen IS 97 on room air. documented in this encounter Plan of Treatment Upcoming Encounters Date Type Department Care Team (Late st Contact Info) Description 04/28/2024 12:00 PM EDT Office Visit Family Medicine [address] [place] [phone] Maria Luz Vora PA-C [address] [place] [address] [place] [address] 07/02/2024 2:00 PM EDT Office Visit Neurology [facility] [address] [place] [address] Greta Valverde CRNP [address] [place] [address] 07/05/2024 2:30 PM EDT Laboratory Laboratory [address] [place] [phone] [place] [address] 08/11/2024 2:45 PM EST Office Visit Hematology/Oncology [facility] [address] [place] [phone] Walter Quintero MD [address] [place] [address] 09/09/2024 1:30 PM EST Nurse Only Ancillary [address] [place] [address] [place], Nurse [address] [place] [address] 11/10/2024 3:20 PM EST Office Visit Family Medicine [address] [place] [phone] Janay Waters MD [address] [place] [address] [place] [phone] Health Maintenance Due Date Last Done Comments [...] Depression Monitoring 01/21/2025 01/22/2024 GFR 03/09/2025 03/09/2024, 05/0 05/2024, 07/17/2023, Additional history exists Albumin/Creatinine Ratio [...] documented as of this encounter Care Teams Rn Internal Medicine Relationship Specialty Start Date End Date Janay Waters MD [address] [place] [address] [place] [address] PCP - General Family Medicine 05/02/22 documented as of this encounter
--- OUTSIDE RECORDS SUMMARY | 2024-04-28 21:05 | External Medical Summary | Summary of Care ---
Author Name Unknown Organization [facility] Address [address] [place] [address] Phone [phone] Care Team Providers Care Blending Plant Operator Name Role Phone Janay Waters MD Primary Care Provide r Reason for Visit * Reason Onset Date Comments Advice 04/05/2024 Dr. Quintero Encounter Details Date Type Department Care Team (Late st Contact Info) Description 04/05/2024 Telephone Hematology/Oncology [facility] 200 [facility] [place] [phone] Walter Qiuntero MD 200 [facility] [place] [address] Advice (Dr. Quintero) Allergies Active Allergy Reactions [...] No 01/30/2024 Does the household have a [facility] health systemr source of income? (Household - for ages [...] encounter Miscellaneous Notes * Telephone Encounter - Washington Stoner RN - 04/05/2024 9:37 AM EDT Called patient back and relayed results to her. Scheduling- please schedule patient for repeat lab work at the end of June in [facility] "CBCD,Ferritin,Iron". Please call the patient this [...] 07/02/2024 2:00 PM EDT Office Visit Neurology [address] [place] [address] Greta Valverde CRNP [facility] [address] 07/05/2024 2:30 PM EDT Laboratory Laboratory [address] [place] [phone] [place] [address] 08/11/2024 2:45 PM EST Office Visit Hematology/Oncology [facility] [place] 200 [facility] [place], [place] [phone] Walter Quintero MD 200 [facility] [place] [address] 09/09/2024 1:30 PM EST Nurse Only Ancillary [address] [place] [address] [place], Nurse Annual [address] [place] [address] 11/10/2024 3:20 PM EST Office Visit Family Medicine [address] [place] [phone] Janay Waters MD [address] [place] [address] [place] [address] Health Maintenance Due Date Last Done Comments [...] Ratio 05/13/2025 05/13/2022 Lipid Panel 04/17/2027 04/17/2022, 1110/2016, 04/11/2016 DTaP,Tdap,and Td Vaccines (3 - Td [...] documented as of this encounter Care Teams Blending Plant Operator Relationship Specialty Start Date End Date Janay Waters MD [address] [place] [address] [place] [address] PCP - General Family Medicine 05/02/22 documented as of this encounter
--- OUTSIDE RECORDS SUMMARY | 2024-04-28 21:06 | External Medical Summary ---
Author Name Unknown Address Unknown Organization K01:[facility] [address] [facility] [address] [place] [address] Laboratory Report Ordering Provider Test Date Status MATTHEW GARCIA 03/09/2024 14:29:44 Sirena l Observation Date Value Abnormality Reference (Units ) Status BUN 03/09/2024 14:29:44 19 6-20 (mg/dL) Final Creatinine 03/09/2024 14:29:44 0.8 0.5-1.0 (mg/dL) Final Glomerular filtration rate/1.73 sq M.predicted [Volume Rate/Area] in Serum, Plasma or Blood by Creatinine-based formula (CKD-EPI) 03/09/2024 14:29:44 82 >=60 (mL/min) Final eGFR is calculated based on the CKD-EPI 2020 equation Sodium 03/09/2024 14:29:44 142 135-146 (m mol/L) Final Potassium 03/09/2024 14:29:44 4.1 3.5-5.1 (m mol/L) Final Cl 03/09/2024 14:29:44 104 98-107 (mm ol/L) Final CO2 03/09/2024 14:29:44 27 22-32 (mmo l/L) Final Anion gap 03/09/2024 14:29:44 11 7-15 (mmol /L) Final Glucose 03/09/2024 14:29:44 70 70-120 (mg /dL) Final Calcium 03/09/2024 14:29:44 9.1 8.4-10.2 ( mg/dL) Final Performing Location [facility] [place] [facility] [place] [address]
--- OUTSIDE RECORDS SUMMARY | 2024-04-28 21:06 | External Medical Summary | Summary of Care ---
Author Name Unknown Organization [facility] Address [address] [place] [address] Phone [phone] Care Team Providers Care Master Automotive Glass Technician Name Role Phone Janay Waters MD Primary Care Provide r Reason for Referral * Evaluate & Treat - Unlimited Visits (Within 30 days (routine)) - Authorized Specialty Diagnoses / Procedures Referred By Epifanio horne Referred To Contact Neurology Diagnoses Memory loss Janay Waters MD [address] [place] [address] [place] [id number] Referral ID Status Reason Start Date Expiration Date Visits Requested Visits Authorized [id number] Authorized Specialty Services Required 03/09/[phone] Question Answer Referral Priority Within 30 days (routine) Where should this appointment be scheduled? [facility] Is this referral being placed for insurance purposes ONLY No, patient needs appointment [facility] NEUROLOGY REFERRAL QUESTIONS Memory/Cognition Reason for Visit * Reason Comments Re-Check 6 week recheck Encounter Details Date Type Department Care Team (Late st Contact Info) Description 03/09/2024 1:40 PM EDT Office Visit Family Medicine [address] [place] [phone] Janay Waters MD [address] [place] [address] [place] [id number] Hypertension goal BP (blood pressure) < 140/90*; Anxiety; Memory loss; Malignant melanoma of right upper extremity (HCC); Bilateral leg edema; Iron deficiency anemia, unspecified iron deficiency anemia type; Bipolar disorder in partial remission, most recent episode unspecified type (HCC) Allergies Active Allergy Reactions Criticality Noted Date Comments Azithromycin Nausea/vomiting High 09/03/2017 Codeine Low 08/05/2014 Other Reaction(s): Nausea, Not available, Vomiting documented as of this encounter (statuses as of 03/09/2024) Medications Medication Sig Dispensed Refills Start Date End Date Status Divalproex Sodium ER 500 MG Oral Tablet Extended Release 24 Hour (Depakote ER)Indications:B ipolar disorder in partial remission, most recent episode unspecified type (HCC) Take 1 Tablet (500 mg) by mouth in the morning and 1 Tablet (500 mg) before bedtime. 60 Tablet 2 08/02/2022 Active Furosemide 20 MG Oral Tablet (Lasix)Indicatio ns:Hypertension goal BP (blood pressure) < 140/90,Bilateral lower extremity edema,Bilateral leg edema Take 2 Tablets by mouth in the morning. 180 Tablet 3 01/10/2023 Active Folic Acid 1 MG Oral TabletIndication s:Anemia due to folic acid deficiency, unspecified deficiency [...] Rose ER 10 MEQ Oral Tablet Extended ReleaseIndicatio ns:Hypokalemia TAKE TWO TABLETS BY MOUTH IN THE MORNING 90 Tablet 1 02/08/2024 Active Sertraline HCl 50 MG Oral Tablet (Zoloft) Take 1 Tablet by mouth in the morning. 02/17/2024 Active busPIRone HCl 10 MG Oral Tablet (Buspar)Indicati ons:Anxiety Take 1 Tablet by mouth in the morning and 1 Tablet before bedtime. 60 Tablet 3 03/09/2024 Active Cholecalciferol (VITAMIN D3) 3000 UNITS Tablet Take 1 Tablet by mouth in the morning. 4 Discontinued(Medi cation List Clean Up) Ibuprofen 600 MG Oral Tablet (Motrin) Take 1 Tablet by mouth every 6 hours as needed. 4 Discontinued(Medi cation List Clean Up) busPIRone HCl 10 MG Oral Tablet (Buspar)Indicati ons:Anxiety TAKE ONE TABLET BY MOUTH IN THE MORNING and before bedtime 60 Tablet 3 01/30/2023 4 Discontinued(Medi cation List Clean Up) Sertraline HCl 25 MG Oral Tablet (Zoloft)Indicati ons:Bipolar disorder in partial remission, most recent episode unspecified type (HCC),Current moderate episode of major depressive disorder without prior episode (HCC),Anxiety TAKE ONE TABLET BY MOUTH IN THE MORNING 90 Tablet 1 12/10/2023 4 Discontinued Ascorbic Acid 1000 MG Oral Tablet Take 1 Tablet by mouth in the morning. 4 Discontinued(Medi cation List Clean Up) documented as of this encounter (statuses as of 03/09/2024) Active Problems Problem Noted Date Diagnosed Date [...] as of this encounter (statuses as of 03/09/2024) Resolved Problems Problem Noted Date Diagnosed Date Resolved Date Hematuria 12/16/2016 07/17/2017 documented as of this encounter (statuses as of 03/09/2024) Immunizations Name Administration Dates Next Due COVID-19 [...] on file documented as of this encounter Last Filed Vital Signs Vital Sign Reading Time Taken Comments Blood Pressure 116/62 03/09/2024 1:42 PM EDT Pulse 88 03/09/2024 1:42 PM EDT Temperature 36.2 C (97.1 F) 03/09/2024 1:42 PM ED T Respiratory Rate - - Oxygen Saturation 95% 03/09/2024 1:42 PM EDT Inhaled Oxygen Concentration - - Weight 57.1 kg (125 lb 12.8 oz) 03/09/2024 1:42 PM EDT Height - - Body Mass Index 23.24 01/22/2024 3:35 PM EDT documented in this encounter Progress Notes * Janay Waters MD - 03/09/2024 1:40 PM EDT Subjective: HPI: Tamiko Hagen is a 73 year old female with hx of Bipolar disorder, HTN, Varicose veins, Malignant Melanoma of the R forearm, B/L LE edema seen for Pt was seen in the clinic last month for worsening leg swelling, memory concerns and low normal BP - during the visit it looks like pt was taking Lisinopril and losartan ---- but she was only prescribed losartan from our clinic - her lisinopril and hCTZ was discontinued Today: - pt is here with her - she is currently taking Losartan 50mg daily, lasix 40mg daily and KCL 20 meq daily - per pt swelling is better with lasix 40mg daily - per pt and pt is having increased anxiety ----- not taking buspar Iron def anemia: - in the process of starting venofer (by Privacy Director) Memory concerns: - pt denied any concerns - but pt's stated that she does - ex: sometimes forget thing when she is talking - pt denied any episodes of forgetting names or address Patient Active Problem List Diagnosis Hypertension goal BP (blood pressure) < 140/90 Bipolar disorder (HCC) Renal cyst Varicose vein of leg Venous insufficiency Urinary incontinence Bilateral leg edema Aortic valve sclerosis Hx of melanoma of skin Malignant melanoma of right upper extremity (HCC) Current moderate episode of major depressive disorder without prior episode (HCC) Anxiety Right middle lobe pulmonary nodule Lymphedema due to chronic inflammation Diarrhea Hypokalemia Iron deficiency anemia Current Outpatient Medications Medication Sig Dispense Refill Divalproex Sodium ER 500 MG Oral Tablet Extended Release 24 Hour (Depakote ER) Take 1 Tablet (500 mg) by mouth in the morning and 1 Tablet (500 mg) before bedtime. 60 Tablet 2 Furosemide 20 MG Oral Tablet (Lasix) Take 2 Tablets by mouth in the morning. 180 Tablet 3 Folic Acid 1 MG Oral Tablet Take 1 Tablet by mouth in the morning. 90 Tablet 3 Losartan Potassium 50 MG Oral Tablet (Cozaar) TAKE 1 TABLET BY MOUTH EVERY MORNING 90 Tablet 2 Cholestyramine 4 GM Oral Packet (Questran) Take 1 Packet by mouth in the morning and 1 Packet before bedtime. mixed with liquid.. 180 Packet 1 Ferrous Sulfate 325 (65 Fe) MG Oral Tablet (Feosol) Take 1 Tablet by mouth daily with breakfast. 90Tablet 1 Potassium Chloride Rose ER 10 MEQ Oral Tablet Extended Release TAKE TWO TABLETS BY MOUTH IN THE MORNING 90 Tablet 1 Sertraline HCl 50 MG Oral Tablet (Zoloft) Take 1 Tablet by mouth in the morning. busPIRone HCl 10 MG Oral Tablet (Buspar) Take 1 Tablet by mouth in the morning and 1 Tablet before bedtime. 60 Tablet 3 No current facility-administered medications for this visit. Past Medical History: Diagnosis Date Bipolar disorder (HCC) Dr. Hummel Hematuria following with urology Hypertension goal BP (blood pressure) < 140/90 Renal cyst Past Surgical History: Procedure Laterality Date BRONCHOSCOPY, DIAGNOSTIC N/A 02/21/2023 BRONCHOSCOPY DIAGNOSTIC WITH OR WITHOUT WASHING performed by Herbie Brizuela MD at [facility] [place] EXC TUMOR SOFT TISSUE UPPER ARM/ELBOW SUBQ 3CM OR MORE Right 07/15/2022 done at [facility] by Dr Camp Review of patient's allergies indicates: Allergen Reactions Azithromycin Nausea/vomiting Codeine Other Reaction(s): Nausea, Not available, Vomiting No family history on file. Social History Tobacco Use Smoking status: Never Passive exposure: Never Smokeless tobacco: Never Substance Use Topics Alcohol use: No Vaping/E-Cigarette Use Vaping/E-Cigarette Use Never User Vaping/E-Cigarette Substances Vaping/E-Cigarette Devices ROS: -Per HPI OBJECTIVE: BP 116/62 | Pulse 88 | Temp 36.2 C (97.1 F) | Wt 57.1 kg (125 lb 12.8 oz) | SpO2 95% | BMI 23.24 kg/m | BSA 1.58 m PHYSICAL EXAM: Vitals are reviewed General:. NAD, well developed HEENT:. Normal Conjunctiva, EOMI Cardiac:. Normal S1, S2, no murmur Lungs:. CTA, no wheezing or crackles MSK:severe b/l LE pitting edema, no open wound (appear slightly better than before) Psych:.tangential (but less than before), AAOx3 ASSESSMENT/PLAN: Bp is better w/o HCTZ - it seems like pt was taking both lisinopril and losartan (unsure where pt received the lisinoprilfrom) - continue the losartan 50mg daily and lasix 40mg daily - BMP today Due to memory concerns will refer the pt to Neuro - however I do suspect pt's mood disorder as the reason for the memory concern Added buspar back for her anxiety Leg swelling do appear better compared to the previous swelling Follows up with psych Hypertension goal BP (blood pressure) < 140/90 (Primary) - BASIC METABOLIC PANEL Anxiety - busPIRone HCl 10 MG Oral Tablet (Buspar); Take 1 Tablet by mouth in the morning and 1 Tablet before bedtime. Memory loss - ADULT NEUROLOGY REFERRAL OP Malignant melanoma of right upper extremity (HCC) Bilateral leg edema Iron deficiency anemia, unspecified iron deficiency anemia type Bipolar disorder in partial remission, most recent episode unspecified type (HCC) Follow Up: Return in 6 months (on 09/08/2024) for Annual Wellness with Renay. | For: Annual Wellness with Renay Waters MD Family medicine, [address] [phone] documented in this encounter Nursing Notes * Kira Rodriguez CMA - 03/09/2024 1:34 PM EDT She is here for a recheck today. She say Dr. Marrufo 6 weeks ago. He adjusted her medications for her blood pressure. Tamiko did says she got some new nylon stockings to try and help with her leg swelling. She feels like she is wearing a tight girdle around her abdomen all the time. documented in this encounter Plan of Treatment Upcoming Encounters Date Type Department Care Team (Late st Contact Info) Description 04/02/2024 1:00 PM EDT Laboratory Laboratory [address] [place] [phone] [place], [address] [place] [address] 08/11/2024 2:45 PM EST Office Visit Hematology/Oncology [facility] [place] [address] [place] [phone] Walter Quintero MD [address] [place] [phone] Pending Results Name Type Priority Associated Diagnoses Date /Time BASIC METABOLIC PANEL Lab Routine Hypertension goal BP (blood pressure) < 140/90 03/09/2024 2:29 PM EDT Scheduled Referrals Name Type Priority Associated Diagnoses Orde r Schedule ADULT NEUROLOGY REFERRAL OP Referral Within 30 days (routine) Memory loss Ordered: 03/09/2024 Health Maintenance Due Date Last Done Comments Cologuard 1994 Fecal Occult Blood Test 1994 Sigmoidoscopy 1994 Zoster Vaccines (1 of 2) 1999 Colonoscopy 08/17/2023 08/17/2013 Colorectal Cancer Screening 08/17/2023 COVID-19 Vaccine ( season) 2023 08/26/2023, 11/13/2020, 10/16/2020 DXA Scan 12/27/2023 12/26/2016 Mammogram 06/06/2024 06/06/2023, 06/17, 07/10/2012 Depression Monitoring 01/21/2025 01/22/2024 GFR 01/21/2025 01/22/2024, 11/0 10/2022, 07/10/2023, Additional history exists Albumin/Creatinine Ratio 05/13/2025 05/13/2022 Lipid Panel 04/17/2027 04/17/2022, 11/10/2016, 04/11/2016 DTaP,Tdap,and Td Vaccines (3 - Td or Tdap) 03/15/2028 03/15/2018, 09/15/1997 Pneumococcal Vaccine: 65+ Years Completed 05/12/2018, 01/23/2017, 09/15/1998 Influenza Vaccine (FLU shot) Completed , 05/08/2022, 06/16/2017, Additional history exists GARDASIL-HPV IMMUNIZATION SERIES Aged Out No longer eligible based on patient's age to complete this topic Hepatitis B Aged Out No longer eligi ble based on patient's age to complete this topic MENINGOCOCCAL (MENACTRA/MENVEO) Aged Out No longer eligible based on patient's age to complete this topic documented as of this encounter Medical Devices Not on filedocumented as of this encounter Visit Diagnoses Diagnosis Hypertension goal BP (blood pressure) < 140/90- Primary Unspecified essential hypertension Anxiety Anxiety state, unspecified Memory loss Malignant melanoma of right upper extremity (HCC) Bilateral leg edema Edema Iron deficiency anemia, unspecified iron deficiency anemia type Bipolar disorder in partial remission, most recent episode unspecified type (HCC) documented in this encounter Additional Health Concerns Infection Onset Date Last Indicated Resolved Time Tuberculosis Rule-Out 02/21/2023 02/21/2023 documented as of this encounter Care Teams Master Automotive Glass Technician Relationship Specialty Start Date End Date Janay Waters MD [address] [place] [address] [place] [phone] PCP - General Family Medicine 05/02/22 documented as of this encounter"
--- OUTSIDE RECORDS SUMMARY | 2024-04-28 21:06 | External Medical Summary | Summary of Care ---
Author Name Unknown Organization [facility] Address [address] [place] [address] Phone [phone] Care Team Providers Care Infection Control Specialist Name Role Phone Janay Waters MD Primary Care Provide r Reason for Visit * Reason Onset Date Comments medication change 03/03/2024 Venofer Encounter Details Date Type Department Care Team (Late st Contact Info) Description 03/03/2024 Telephone Hematology/Oncology Treatment, [place] [address] [place] [address] Walter Quintero MD [address] [place] [address] medication change (Venofer) Allergies Active Allergy Reactions Criticality Noted Date Comments Azithromycin Nausea/vomiting High 09/03/2017 Codeine Low 08/05/2014 Other Reaction(s): Nausea, Not available, Vomiting documented as of this encounter (statuses as of 03/03/2024) Medications Medication Sig Dispensed Refills Start Date End Date Status Cholecalciferol (VITAMIN D3) 3000 UNITS Tablet Take 1 Tablet by mouth in the morning. Active Ibuprofen 600 MG Oral Tablet (Motrin) Take 1 Tablet by mouth every 6 hours as needed. Active Divalproex Sodium ER 500 MG Oral Tablet [...] the morning. 180 Tablet 3 01/10/2023 Active busPIRone HCl 10 MG Oral Tablet (Buspar)Indications:A nxiety TAKE ONE TABLET BY MOUTH IN THE MORNING and before bedtime 60 Tablet 3 01/30/2023 Active Folic Acid 1 MG Oral TabletIndications:Ane [...] with liquid.. 180 Packet 1 11/24/2023 Active Sertraline HCl 25 MG Oral Tablet (Zoloft)Indications:B ipolar disorder in partial remission, most recent episode unspecified type (HCC),Current moderate episode of major depressive disorder without prior episode (HCC),Anxiety TAKE ONE TABLET BY MOUTH IN THE MORNING 90 Tablet 1 12/10/2023 Active Ascorbic Acid 1000 MG Oral Tablet Take 1 Tablet by mouth in the morning. Active Ferrous Sulfate 325 (65 Fe) MG Oral Tablet (Feosol) Take 1 Tablet by mouth daily with breakfast. 90 Tablet 1 01/23/2024 Active Potassium Chloride Rose ER 10 MEQ Oral Tablet Extended ReleaseIndications:Hy pokalemia TAKE TWO TABLETS BY MOUTH IN THE MORNING 90 Tablet 1 02/08/2024 Active documented as of this encounter (statuses as of 03/03/2024) Active Problems Problem Noted Date Diagnosed Date [...] as of this encounter (statuses as of 03/03/2024) Resolved Problems Problem Noted Date Diagnosed Date Resolved Date Hematuria 12/16/2016 07/17/2017 documented as of this encounter (statuses as of 03/03/2024) Immunizations Name Administration Dates Next Due COVID-19 [...] encounter Miscellaneous Notes * Telephone Encounter - Walter Quintero MD - 03/03/2024 2:42 PM EDT She received Venofer x2 between 02/13/2024 - 02/27/2024 Because of Venofer shortage , I am stopping Venofer in her case Would like to get CBCD, Ferritin, iron profile about 1 month from now. * Telephone Encounter - Kathy Kuo LPN - 03/03/2024 10:[address] Quintero: Due to the Venofer shortage we will be unable to continue with the patient's plan as ordered. We need a new order placed. The patient's next scheduled treatment is 03/12/2024 at 2:30 pm documented in this encounter Plan of Treatment Upcoming Encounters Date Type Department Care Team (Late st Contact Info) Description 03/09/2024 1:40 PM EDT Office Visit Family Medicine [address] [place] [phone] Janay Waters MD [address] [place] [address] [place] [phone] 03/12/2024 2:30 PM EDT Hem/Onc Treatment Hematology/Oncology Treatment, [address], [place] [phone] Mago, Chair [address] [place] [address] 03/26/2024 2:30 PM EDT Hem/Onc Treatment Hematology/Oncology Treatment, [address], [place] [phone] Mago, Chair [address] [place] [address] 08/11/2024 2:45 PM EST Office Visit Hematology/Oncology [facility] [address] [place] [phone] Walter Quintero MD [address] [facility] [place] [place] [address] Health Maintenance Due Date Last Done Comments Cologuard 1994 Fecal Occult Blood Test 1994 Sigmoidoscopy 1994 Zoster Vaccines (1 of 2) 1999 Colonoscopy 08/17/2023 08/17/2013 Colorectal Cancer Screening 08/17/2023 COVID-19 Vaccine ( season) 2023 08/26/2023, 11/13/2020, 10/16/2020 DXA Scan 12/27/2023 12/26/2016 Mammogram 06/06/2024 06/06/2023, 06/17, 07/10/2012 Depression Monitoring 01/21/2025 01/22/2024 GFR 01/21/2025 01/22/2024, 110 10/2022, 07/10/2023, Additional history exists Albumin/Creatinine Ratio 05/13/2025 05/13/2022 Lipid Panel 04/17/2027 04/17/2022, 110 10/2016, 04/11/2016 DTaP,Tdap,and Td Vaccines (3 - [...] as of this encounter Visit Diagnoses Diagnosis Iron deficiency anemia, unspecified iron deficiency anemia type- Primary documented in this encounter Additional Health Concerns Infection Onset Date Last Indicated Resolved Time Tuberculosis Rule-Out 02/21/2023 02/21/2023 documented as of this encounter Care Teams Infection Control Specialist Relationship Specialty Start Date End Date Janay Waters MD [address] [place] [address] [place] [phone] PCP - General Family Medicine 05/02/22 documented as of this encounter
--- OUTSIDE RECORDS SUMMARY | 2024-04-28 21:06 | External Medical Summary | Summary of Care ---
Author Name Unknown Organization [facility] Address [address] [place] [address] Phone [phone] Care Team Providers Care Transportation Planning Engineer Name Role Phone Janay Waters MD Primary Care Provide r Reason for Visit * Reason Comments IV Therapy Venofer Encounter Details Date Type Department Care Team (Latest Contact Info) Description 02/27/2024 2:30 PM EDT Hem/Onc Treatment Hematology/Oncology Treatment, [place] [address] [place] [address] Iron deficiency anemia, unspecified iron deficiency anemia type* Allergies Active Allergy Reactions Criticality Noted Date Comments Azithromycin Nausea/vomiting High 09/03/2017 Codeine Low 08/05/2014 Other Reaction(s): Nausea, Not available, Vomiting documented as of this encounter (statuses as of 02/27/2024) Medications Medication Sig Dispensed Refills Start Date [...] as of this encounter (statuses as of 02/27/2024) Active Problems Problem Noted Date Diagnosed Date [...] as of this encounter (statuses as of 02/27/2024) Resolved Problems Problem Noted Date Diagnosed Date Resolved Date Hematuria 12/16/2016 07/17/2017 documented as of this encounter (statuses as of 02/27/2024) Immunizations Name Administration Dates Next Due COVID-19 [...] Passive Smoke Exposure: Never Smokeless Tobacco: Never Tobacco Cessation:Counseling Given: Not Answered Alcohol Use Standard Drinks/Week Comments No 0 [...] money to get more. Never true 01/30/2024 Sex and Gender Information Value Date Recorded Sex Assigned at Female 01/22/2024 3:34 PM EDT Gender Identity Female 01/22/2024 3:34 PM EDT Sexual Orientation Straight 01/22/2024 3: 34 PM EDT Job Start Date Occupation Industry Not on file Not on file Not on file documented as of this encounter Last Filed Vital Signs Vital Sign Reading Time Taken Comments Blood Pressure 122/73 02/27/2024 2:38 PM EDT Pulse 78 02/27/2024 2:38 PM EDT Temperature 36.5 C (97.7 F) 02/27/2024 2:38 PM ED T Respiratory Rate 16 02/27/2024 2:38 PM EDT Oxygen Saturation 97% 02/27/2024 2:38 PM EDT Inhaled Oxygen Concentration - - Weight - - Height - - Body Mass Index - - documented in this encounter Nursing Notes * Gwen Guerra LPN - 02/27/2024 4:24 PM EDT 1610: Pt tolerated Venofer infusion well. PIV removed intact. Pt to return in 2 weeks. Discharged in stable condition. * Tesha Roberts LPN - 02/27/2024 2:38 PM EDT Patient arrived Chair 7 for IV therapy Venofer. Vital signs are stable. IV access successful at theleft forearm vein. IV line flushed with ease; IV fluids connected and infusing. Call hernandez within reach. documented in this encounter Plan of Treatment Upcoming Encounters Date Type Department Care Team (Late st Contact Info) Description 03/09/2024 1:40 PM EDT Office Visit Family Medicine [address] [place] [phone] Janay Waters MD [address] [place] [address] [place] [address] 03/12/2024 2:30 PM EDT Hem/Onc Treatment Hematology/Oncology Treatment, [place] 200 [facility], [place] [phone] 03/26/2024 2:30 PM EDT Hem/Onc Treatment Hematology/Oncology Treatment, [place] 200 [facility], [place] [phone] Mago, Chair 7 Hem Onc [address] [place] [address] 08/11/2024 2:45 PM EST Office Visit Hematology/Oncology [facility] [place] 200 [facility] [place] [phone] Walter Quintero MD 200 [facility] [place] [address] Health Maintenance Due Date Last Done Comments Cologuard 1994 Fecal Occult Blood Test 1994 Sigmoidoscopy 1994 Zoster Vaccines (1 of 2) 1999 Colonoscopy 08/17/2023 08/17/2013 Colorectal Cancer Screening 08/17/2023 COVID-19 Vaccine ( season) 2023 08/26/2023, 11/13/2020, 10/16/2020 DXA Scan 12/27/2023 12/26/2016 Mammogram 06/06/2024 06/06/2023, 06/17, 07/10/2012 Depression Monitoring 01/21/2025 01/22/2024 GFR 01/21/2025 01/22/2024, 10/2022, 07/10/2023, Additional history exists Albumin/Creatinine Ratio [...] anemia type- Primary documented in this encounter Administered Medications Active Administered Medications - up to 3 most recent administrations Medication Order MAR Action Action Date Dose Rate Site diphenhydrAMINE (Benadryl) inj 50 mg 50 mg, IV Push, ONCE PRN Other, Hypersensitivity Reaction, Starting on Fri02/27/24 at 1432, Until 02/28/24 at 1431, For 24 hours EPINEPHrine 1 MG/ML inj 0.3 mg 0.3 mg, Intramuscular, ONCE PRN Other, Hypersensitivity Reaction or Anaphylaxis, Starting on Fri02/27/24 at 1432, Until 02/28/24 at 1431, For 24 hours hEParin 100 UNIT/ML Lock Flush inj 500 Units 500 Units (5 mL), IV Lock, PRN Other, IV Flush, Starting on Fri02/27/24 at 1432, Until 02/28/24 at 1431, For 24 hours, Do not flush if lock, PICC, or central line not in place; IV infusing or unable to flush. Hydrocortisone Sod Suc (PF) (Solu-Cortef) inj 100 mg 100 mg, IV Push, ONCE PRN Other, Hypersensitivity Reaction, Starting on Fri02/27/24 at 1432, Until 02/28/24 at 1431, For 24 hours NSS infusion 500 mL, Intravenous, at 50 mL/hr, CONTINUOUS, Starting on Fri02/27/24 at 1545, Until 02/28/24 at 0144 Start Infusion 02/27/2024 2:33 PM EDT 500 mL 50 mL/hr oxygen GAS Inhalation, OXYGEN, First dose on Fri02/27/24 at 1600, Until Discontinued, Device/Managed by: Low Flow Device, Goal SPO2 (%): 91-95, Starting Device: Nasal Cannula, Initial Flow Rate (LPM): 2, Lowest Support: Nasal Cannula: Flow 0-6 LPM. Titrate up/down by 1 LPM., Higher Support: Non-Rebreather (NRB) Mask: Minimum of 10 LPM. Titrate to maintain bag inflation., Titration Interval: Q2 minutes and as needed., Notify Provider: For sudden DECREASE in resting SPO2 to less than 85% and when escalating delivery device., Wean patient off Oxygen when the oxygen saturation is greater than or equal to 93% sodium chloride 0.9 % flush central line 10 mL 10 mL, IV Push, PRN Other, IV Flush, Starting on Fri02/27/24 at 1432, Until 02/28/24 at 1431, For 24 hours, Do not flush if lock, PICC, or central line not in place; IV infusing or unable to flush. Inactive Administered Medications - up to 3 most recent administrations Medication Order MAR Action Action Date Dose Rate Site Iron Sucrose (Venofer) 300 mg in NSS 250 mL ivpb 300 mg, IV Piggyback, ONCE, 1 dose, On Fri02/27/24 at 1615, Administer over 90 Minutes Start Infusion 02/27/2024 2:35 PM EDT 300 mg 180 mL/hr documented in this encounter Additional Health Concerns Infection Onset Date Last Indicated Resolved Time Tuberculosis Rule-Out 02/21/2023 02/21/2023 documented as of this encounter Care Teams Transportation Planning Engineer Relationship Specialty Start Date End Date Janay Waters MD [address] [place] [address] [place] [phone] PCP - General Family Medicine 05/02/22 documented as of this encounter
--- OUTSIDE RECORDS SUMMARY | 2024-04-28 21:06 | External Medical Summary | Summary of Care ---
Author Name Unknown Organization [facility] Address [address] [place] [address] Phone [phone] Care Team Providers Care Contract Loader Name Role Phone Janay Waters MD Primary Care Provide r Reason for Visit * Reason Comments Outpatient Testing Encounter Details Date Type Department Care Team (Late st Contact Info) Description 03/09/2024 2:30 PM EDT Laboratory Laboratory [address] [place] [phone] [place], Lab [address] [place] [address] Arrived Allergies Active Allergy Reactions Criticality Noted Date [...] 01/30/2024 Does the household have a re lar source of income? (Household - for ages [...] on file documented as of this encounter Plan of Treatment Upcoming Encounters Date Type Department Care Team (Late st Contact Info) Description 04/02/2024 1:00 PM EDT Laboratory Laboratory [address] [place] [phone] [address] [place] [address] 08/11/2024 2:45 PM EST Office Visit Hematology/Oncology State Gisela Stoddard [address] [place] [phone] Walter Quintero MD [address] [place] [address] 09/09/2024 1:30 PM EST Nurse Only Ancillary Favio Perez[address] [place] [address] Tish, Nurse [address] [place] [address] Health Maintenance Due Date Last Done Comments Cologuard 1994 Fecal Occult Blood Test 1994 Sigmoidoscopy 1994 Zoster Vaccines (1 of 2) 1999 Colonoscopy 08/17/2023 08/17/2013 Colorectal Cancer Screening 08/17/2023 COVID-19 Vaccine ( season) 2023 08/26/2023, 11/13/2020, 10/16/2020 DXA Scan 12/27/2023 12/26/2016 Mammogram 06/06/2024 06/06/2023, 06/17, 07/10/2012 Depression Monitoring 01/21/2025 01/22/2024 GFR 01/21/2025 01/22/2024, 1110/2022, 07/10/2023, Additional history exists Albumin/Creatinine Ratio 05/13/2025 [...] documented as of this encounter Care Teams Contract Loader Relationship Specialty Start Date End Date Janay Waters MD [address] [place] [address] [place] [phone] PCP - General Family Medicine 05/02/22 documented as of this encounter
--- OUTSIDE RECORDS SUMMARY | 2024-04-28 21:06 | External Medical Summary | Summary of Care ---
Author Name Unknown Organization [facility] Address [address] [place] [address] Phone [phone] Care Team Providers Care Pipeline Dispatcher Name Role Phone Janay Waters MD Primary Care Provide r Reason for Visit * Reason Onset Date Comments medication change 03/03/2024 Venofer Encounter Details Date Type Department Care Team (Late st Contact Info) Description 03/03/2024 Telephone Hematology/Oncology Treatment, [place] [address] [place] [address] Walter Quintero MD 200 [place] [address] medication change (Venofer) Allergies Active Allergy Reactions Criticality Noted Date Comments Azithromycin Nausea/vomiting High 09/03/2017 Codeine Low 08/05/2014 Other Reaction(s): Nausea, Not available, Vomiting documented as of this encounter (statuses as of 03/08/2024) Medications Medication Sig Dispensed Refills Start Date [...] as of this encounter (statuses as of 03/08/2024) Active Problems Problem Noted Date Diagnosed Date [...] as of this encounter (statuses as of 03/08/2024) Resolved Problems Problem Noted Date Diagnosed Date Resolved Date Hematuria 12/16/2016 07/17/2017 documented as of this encounter (statuses as of 03/08/2024) Immunizations Name Administration Dates Next Due COVID-19 [...] as of this encounter Miscellaneous Notes * Addendum Note - Keyla Kelley, RN - 03/08/2024 8:29 AM EDTAddended by: KEYLA KELLEY on: 03/08/2024 08:29 AM Modules accepted: Orders * Telephone Encounter - Keyla Kelley RN - 03/08/2024 8:25 AM EDT Attempted to call patient- mailbox full. Left message #2 for . Called and spoke to patients daughter, Kacie. She will make patient aware that venofer appts are cancelled and that she is to repeat labs in about 1 month. * Addendum Note - Vita Kuo LPN - 03/05/2024 8:55 AM EDTAddended by: VITA KUO on: 03/05/2024 08:55 AM Modules accepted: Orders * Telephone Encounter - Vita Kuo LPN - 03/05/2024 8:54 AM EDT Order received to discontinue Venofer Venofer order discontinued. * Telephone Encounter - Vita Kuo LPN - 03/05/2024 8:48 AM EDT Left message for patient to return call, return number provided. Re: In regards to Venofer shortage. Treatments cancelled, no orders from MD. * Telephone Encounter - Walter Quintero MD - 03/03/2024 2:42 PM EDT She received Venofer x2 between 02/13/2024 - 02/27/2024 Because of Venofer shortage , I am stopping Venofer in her case Would like to get CBCD, Ferritin, iron profile about 1 month from now. * Telephone Encounter - Vita Kuo LPN - 03/03/2024 10:58 AM EDT [...] 1:40 PM EDT Office Visit Family Medicine [address] [place] [phone] Janay Waters MD [address] [place] [address] [place] [address] 08/11/2024 2:45 PM EST Office Visit Hematology/Oncology [facility] [place] [address] [place] [phone] Walter Quintero MD [address] [place] [address] Health Maintenance Due Date Last Done Comments [...] Ratio 05/13/2025 05/13/2022 Lipid Panel 04/17/2027 04/17/2022, 11/0 10/2016, 04/11/2016 DTaP,Tdap,and Td Vaccines (3 - [...] documented as of this encounter Care Teams Pipeline Dispatcher Relationship Specialty Start Date End Date Janay Waters MD [address] [place] [address] [place] [phone] PCP - General Family Medicine 05/02/22 documented as of this encounter
--- OUTSIDE RECORDS SUMMARY | 2024-04-28 21:06 | External Medical Summary ---
Author Name Unknown Address Unknown Organization K01:[facility]ATORY [facility] [place] - [address] [place] [address] Laboratory Report Ordering Provider Test Date Status PAVEL JALLOH 04/02/2024 12:38:04 Final Observation Date Value Abnormality Reference (Units ) Status Ferritin 04/02/2024 12:38:04 301 Above high normal 13 -150 (ng/mL) Final Postmenopausal women have hi gher ferritin levels than pre-menopausal women. The above reference interval is based on pre-menopausal women. Performing Location LAB[facility]ATORY [facility] - [address] [place] [address]
--- OUTSIDE RECORDS SUMMARY | 2024-04-28 21:06 | External Medical Summary | Summary of Care ---
Author Name Unknown Organization [facility] Address [address] [place] [address] Phone [phone] Care Team Providers Care Museum Preparator Name Role Phone Janay Waters MD Primary Care Provide r Reason for Visit * Reason Comments Outpatient Testing Encounter Details Date Type Department Care Team (Late st Contact Info) Description 04/02/2024 1:00 PM EDT Laboratory Laboratory [address] [place] [phone] [place], Lab [address] [place] [address] Iron deficiency anemia, unspecified iron deficiency anemia type Allergies Active Allergy Reactions Criticality Noted Date Comments Azithromycin Nausea/vomiting High 09/03/2017 Codeine Low 08/05/2014 Other Reaction(s): Nausea, Not available, Vomiting documented as of this encounter (statuses as of 04/02/2024) Medications Medication Sig Dispensed Refills Start Date [...] as of this encounter (statuses as of 04/02/2024) Active Problems Problem Noted Date Diagnosed Date [...] as of this encounter (statuses as of 04/02/2024) Resolved Problems Problem Noted Date Diagnosed Date Resolved Date Hematuria 12/16/2016 07/17/2017 documented as of this encounter (statuses as of 04/02/2024) Immunizations Name Administration Dates Next Due COVID-19 [...] No 01/30/2024 Does the household have a [facility] source of income? (Household - for ages [...] 07/02/2024 2:00 PM EDT Office Visit Neurology [facility] [address] [place] [address] Greta Valverde CRNP [address] [place] [address] 08/11/2024 2:45 PM EST Office Visit Hematology/Oncology [facility] [place] [address] [place] [phone] Walter Quintero MD [address] [place] [address] 09/09/2024 1:30 PM EST Nurse Only Ancillary [address] [place] [address] [place], Nurse Annual [address] [place] [address] 11/10/2024 3:20 PM EST Office Visit Family Medicine [address] [place] [phone] Janay Waters MD [address] [place] [address] [place] [address] Pending Results Name Type Priority Associated Diagnoses Date /Time CBC WITH WBC DIFFERENTIAL Lab STAT Iron deficiency anemia, unspecified iron deficiency anemia type 04/02/2024 12:38 PM EDT FERRITIN Lab STAT Iron deficiency anemia, unspecified iron deficiency anemia type 04/02/2024 12:38 PM EDT IRON SCREEN, INCLUDING TIBC Lab STAT Iron deficiency anemia, unspecified iron deficiency anemia type 04/02/2024 12:38 PM EDT CBC Lab STAT Iron deficiency anemia, unspecified iron deficiency anemia type 04/02/2024 12:38 PM EDT DIFFERENTIAL, AUTOMATED Lab STAT Iron deficiency anemia, unspecified iron deficiency anemia type 04/02/2024 12:38 PM EDT Health Maintenance Due Date Last Done Comments [...] deficiency anemia, unspecified iron deficiency anemia type documented in this encounter Additional Health Concerns Infection Onset Date Last Indicated Resolved Time Tuberculosis Rule-Out 02/21/2023 02/21/2023 documented as of this encounter Care Teams Museum Preparator Relationship Specialty Start Date End Date Janay Waters MD [address] [place] [address] [place] [phone] PCP - General Family Medicine 05/02/22 documented as of this encounter
--- OUTSIDE RECORDS SUMMARY | 2024-04-28 21:06 | External Medical Summary | Summary of Care ---
Author Name Unknown Organization [facility] Address [address] [place] [facility] [place] [address] Phone [phone] Care Team Providers Care Station Gateman Name Role Phone Janay Waters MD Primary Care Provide r Encounter Details Date Type Department Care Team (Late st Contact Info) Description 04/05/2024 Orders Only Hematology/Oncology [facility] [place] 200 [facility] [place] [phone] [facility] [address] Iron deficiency anemia, unspecified iron deficiency anemia [...] No 01/30/2024 Does the household have a [facility] source [facility]? (Household - for ages [...] 07/02/2024 2:00 PM EDT Office Visit Neurology [facility] [place] [address] [place] [address] Greta Valverde CRNP [address] [place] [place] [address] 08/11/2024 2:45 PM EST Office Visit [facility]ology[facility]Oncology [facility] [place] [address] [place] [address] [phone] Walter Quintero MD [address] [place] [address] 09/09/2024 1:30 PM EST Nurse Only Ancillary [address] [place] [address] [place], Nurse Annual [facility] [address] [place] [address] [place] [address] 11/10/2024 3:20 PM EST Office Visit Family Medicine [address] [place] [phone] Janay Waters MD [address] [place] [address] [place] [address] Scheduled Orders Name Type Priority Associated Diagnoses Orde r Schedule CBC WITH WBC DIFFERENTIAL Lab Routine Iron deficiency anemia, unspecified iron deficiency anemia type Expected: 07/06/2024, Expires: 04/05/2025 FERRITIN Lab Routine Iron deficiency anemia, unspecified iron deficiency anemia type Expected: 07/06/2024, Expires: 04/05/2025 IRON SCREEN, INCLUDING TIBC Lab Routine Iron deficiency anemia, unspecified iron deficiency anemia type Expected: 07/06/2024, Expires: 04/05/2025 Health Maintenance Due Date Last Done Comments [...] documented as of this encounter Care Teams Station Gateman Relationship Specialty Start Date End Date Janay Waters MD [address] [place] [address] [place] [address] PCP - General Family Medicine 05/02/22 documented as of this encounter
--- OUTSIDE RECORDS SUMMARY | 2024-04-28 21:06 | External Medical Summary ---
Author Name Unknown Address Unknown Organization K01[facility] [address] [facility] [address] Laboratory Report Ordering Provider Test Date Status PAVEL JALLOH 04/02/2024 12:38:04 Final Observation Date Value Abnormality Reference (Units ) Status Iron 04/02/2024 12:38:04 44 33-151 (ug /dL) Final Iron-binding capacity 04/02/2024 12:38:04 299 250-425 (ug/dL) Final Transferrin Sat % 04/02/2024 12:38:04 15 15 -55 (%) Final Performing Location LABORATORY [facility] - [address] [place] [address]
--- OUTSIDE RECORDS SUMMARY | 2024-04-28 21:06 | External Medical Summary ---
Author Name Unknown Address Unknown Organization K01:[facility] - [facility] [address] [facility] [address] [facility] [address] Laboratory Report Ordering Provider Test Date Status PAVEL JALLOH 04/02/2024 12:38:04 Final Observation Date Value Abnormality Reference (Units ) Status WBC, Total 04/02/2024 12:38:04 4.36 4.00-10.80 (K/uL) Final RBC 04/02/2024 12:38:04 3.26 3.85-5.15 (M/uL) Final Hemoglobin 04/02/2024 12:38:04 10.1 Below low normal 12.0-15.3 (g/dL) Final HCT 04/02/2024 12:38:04 32.5 Below low normal 36.0-45.2 (%) Final MCV 04/02/2024 12:38:04 99.7 81.5-97.5 (fL) Final MCH 04/02/2024 12:38:04 31.0 27.0-34.0 (pg) Final MCHC 04/02/2024 12:38:04 31.1 32.0-36.0 (g/dL) Final RDW 04/02/2024 12:38:04 15.9 11.5-15.5 (%) Final Platelets 04/02/2024 12:38:04 204 140-400 (K/uL) Final MPV 04/02/2024 12:38:04 9.7 6.6-11.1 (fL) Final Nucleated erythrocytes/100 leukocytes [Ratio] in Blood by Automated count 04/02/2024 12:38:04 0 <=0 (/100 WBCs) Final Performing Location LABORATORY [facility] - [address] [place] [address]
--- OUTSIDE RECORDS SUMMARY | 2024-04-28 21:06 | External Medical Summary | Summary of Care ---
Author Name Unknown Organization [facility] Address [address] [place] [address] Phone [phone] Care Team Providers Care Cnc Router Operator Name Role Phone Janay Waters MD Primary Care Provide r Reason for Visit * Reason Onset Date Comments medication change 03/03/2024 Venofer Encounter Details Date Type Department Care Team (Late st Contact Info) Description 03/03/2024 Telephone Hematology/Oncology Treatment, [place] [address] [place] [address] Walter Quintero MD 200 [place] [address] medication change (Venofer) Allergies Active Allergy Reactions [...] encounter Miscellaneous Notes * Telephone Encounter - Keyla Kelley RN - 03/08/2024 12:02 PM EDT Patient returned call. Verbalized understanding, would like to restart oral iron (she does not think she had any side effects to oral iron). Scheduling: please add lab appt in 04/02 at 1pm "CBCd, ferritin, iron screen". Patient aware. Thanks! * Telephone Encounter - Vita Kuo LPN - 03/08/2024 10:56 AM EDT Left message on patient's 's voicemail, return number provided. * Telephone Encounter - Marianne Elmore OSA - 03/08/2024 10:42 AM EDT Patients called in asking to speak with a nurse to discuss about his 's treatments. If someone can call him back to discuss. He stated that they are not aware of why they were canceled orwhat they are to do. * Addendum Note - Keyla Kelley RN - 03/08/2024 8:29 AM EDTAddended by: [...] 03/09/2024 1:40 PM EDT Office Visit Family [address] [phone] Janay Waters MD [address] [place] [address] [place] [address] 08/11/2024 2:45 PM EST Office Visit Hematology/Oncology [place] 200 [facility] [place] [phone] Walter Quintero MD [address] [facility] [place] [address] Health Maintenance Due Date Last Done Comments [...] documented as of this encounter Care Teams Cnc Router Operator Relationship Specialty Start Date End Date Janay Waters MD [address] [place] [address] [place] [address] PCP - General Family Medicine 05/02/22 documented as of this encounter
--- OUTSIDE RECORDS SUMMARY | 2024-04-28 21:06 | External Medical Summary | Summary of Care ---
Author Name Unknown Organization [facility] Address [address] [place] [address] Phone [phone] Care Team Providers Care Traveling Plant Operator Name Role Phone Janay Waters MD Primary Care Provide r Reason for Visit * Reason Onset Date Comments medication change 03/03/2024 Venofer Encounter Details Date Type Department Care Team (Late st Contact Info) Description 03/03/2024 Telephone Hematology/Oncology Treatment, [place] 200 [place] [address] Walter Quintero MD 200 [place] [address] medication change (Venofer) Allergies Active Allergy Reactions [...] encounter Miscellaneous Notes * Addendum Note - Vita Kuo LPN [...] 1:40 PM EDT Office Visit Family Medicine [address] [place] [phone] Janay Waters MD [address] [place] [address] [place] [address] 08/11/2024 2:45 PM EST Office Visit Hematology/Oncology [place] 200 [facility] [place] [phone] Walter Quintero MD 200 [facility] [place] [address] Health Maintenance Due Date Last Done Comments [...] documented as of this encounter Care Teams Traveling Plant Operator Relationship Specialty Start Date End Date Janay Waters MD [address] [place] [address] [place] [address] PCP - General Family Medicine 05/02/22 documented as of this encounter
--- OUTSIDE RECORDS SUMMARY | 2024-04-28 21:06 | External Medical Summary | Summary of Care ---
Author Name Unknown Organization [facility] Address [address] [place] [address] Phone [phone] Care Team Providers Care Candy Waffle Assembler Name Role Phone Janay Waters MD Primary Care Provide r Reason for Visit * Reason Onset Date Comments medication change 03/03/2024 Venofer Encounter Details Date Type Department Care Team (Late st Contact Info) Description 03/03/2024 Telephone Hematology/Oncology Treatment, [place] [address] [place] [address] Walter Quintero MD 200 [place] [address] medication change (Venofer) Allergies Active Allergy Reactions [...] Miscellaneous Notes * Telephone Encounter - Gisele Mendez OSA - 03/08/2024 12:45 PM EDT Added to the schedule * Telephone Encounter - Keyla Kelley RN [...] 1:40 PM EDT Office Visit Family Medicine [address] [place] [phone] Janay Waters MD [address] [place] [address] [place] [address] 04/02/2024 1:00 PM EDT Laboratory Laboratory [address] [place] [phone] [address] [place] [address] 08/11/2024 2:45 PM EST Office Visit Hematology/Oncology [address] [place] [phone] Walter Quintero MD 200 [facility] [place] [address] Health Maintenance Due Date Last Done Comments [...] documented as of this encounter Care Teams Candy Waffle Assembler Relationship Specialty Start Date End Date Janay Waters MD [address] [place] [address] [place] [phone] PCP - General Family Medicine 05/02/22 documented as of this encounter
--- OUTSIDE RECORDS SUMMARY | 2024-04-28 21:06 | External Medical Summary | Summary of Care ---
Author Name Unknown Organization [facility] Address [address] [place] [address] Phone [phone] Care Team Providers Care Outreach Team Member Name Role Phone Janay Waters MD Primary Care Provide r Reason for Visit * Reason Onset Date Comments medication change 03/03/2024 Venofer Encounter Details Date Type Department Care Team (Late st Contact Info) Description 03/03/2024 Telephone Hematology/Oncology Treatment, [place] [address] [place] [address] Walter Quintero MD 200 [place] [address] medication change (Venofer) Allergies Active Allergy Reactions [...] 1:40 PM EDT Office Visit Family Medicine [address] [place] [address] Janay Waters MD [address] [place] [address] [place] [address] 03/12/2024 2:30 PM EDT Hem/Onc Treatment Hematology/Oncology Treatment, [address], [place] [phone] Mago, Chair 9 Hem Onc [address] [place] [address] 03/26/2024 2:30 PM EDT Hem/Onc Treatment Hematology/Oncology Treatment, [address], [place] [address] Mago, Chair 7 Hem Onc [address] [place] [address] 08/11/2024 2:45 PM EST Office Visit Hematology/Oncology [facility] [address] [place] [phone] Waletr Quintero MD 200 [facility] [place] [address] Health Maintenance Due Date Last Done Comments [...] documented as of this encounter Care Teams Outreach Team Member Relationship Specialty Start Date End Date Janay Waters MD [address] [place] [address] [place] [phone] PCP - General Family Medicine 05/02/22 documented as of this encounter
--- OUTSIDE RECORDS SUMMARY | 2024-04-28 21:06 | External Medical Summary | Summary of Care ---
Author Name Unknown Organization [facility] Address [address] [place] [address] Phone [phone] Care Team Providers Care Supercharger Mechanic Name Role Phone Janay Waters MD Primary Care Provide r Reason for Visit * Reason Onset Date Comments medication change 03/03/2024 Venofer Encounter Details Date Type Department Care Team (Late st Contact Info) Description 03/03/2024 Telephone Hematology/Oncology Treatment, [place] [address] [place] [address] Walter Quintero MD 200 [place] [address] medication change (Venofer) Allergies Active Allergy Reactions Criticality Noted Date Comments Azithromycin Nausea/vomiting High 09/03/2017 Codeine Low 08/05/2014 Other Reaction(s): Nausea, Not available, Vomiting documented as of this encounter (statuses as of 03/05/2024) Medications Medication Sig Dispensed Refills Start Date [...] 90 Tablet 1 01/23/2024 Active Potassium Chloride [facility] 10 MEQ Oral Tablet Extended ReleaseIndications:Hy pokalemia TAKE TWO TABLETS BY MOUTH IN THE MORNING 90 Tablet 1 02/08/2024 Active documented as of this encounter (statuses as of 03/05/2024) Active Problems Problem Noted Date Diagnosed Date [...] as of this encounter (statuses as of 03/05/2024) Resolved Problems Problem Noted Date Diagnosed Date Resolved Date Hematuria 12/16/2016 07/17/2017 documented as of this encounter (statuses as of 03/05/2024) Immunizations Name Administration Dates Next Due COVID-19 [...] 1:40 PM EDT Office Visit Family Medicine [address] [place] [phone] Janay Waters MD [address] [place] [address] [place] [address] 08/11/2024 2:45 PM EST Office Visit Hematology/Oncology [place] 200 [facility] [place] [phone] Walter Quintero MD 200 [facility] [place] [address] Health Maintenance Due Date Last Done Comments [...] documented as of this encounter Care Teams Supercharger Mechanic Relationship Specialty Start Date End Date Janay Waters MD [address] [place] [address] [place] [address] PCP - General Family Medicine 05/02/22 documented as of this encounter
--- OUTSIDE RECORDS SUMMARY | 2024-04-28 21:06 | External Medical Summary | Summary of Care ---
Author Name Unknown Organization [facility] Address [address] [place] [address] Phone [phone] Care Team Providers Care Contact Printer Dry Film Name Role Phone Janay Waters MD Primary Care Provide r Reason for Visit * Reason Comments Infusion Venofer 09/18 Encounter Details Date Type Department Care Team (Latest Contact Info) Description 02/13/2024 2:30 PM EDT Hem/Onc Treatment Hematology/Oncology Treatment, [address] [phone] Park, Chair 2 Hem Onc [facility] 200 [place] [address] Iron deficiency anemia, unspecified iron deficiency anemia type* Allergies Active Allergy Reactions Criticality Noted Date Comments Azithromycin Nausea/vomiting High 09/03/2017 Codeine Low 08/05/2014 Other Reaction(s): Nausea, Not available, Vomiting documented as of this encounter (statuses as of 02/19/2024) Medications Medication Sig Dispensed Refills Start Date [...] as of this encounter (statuses as of 02/19/2024) Active Problems Problem Noted Date Diagnosed Date [...] as of this encounter (statuses as of 02/19/2024) Resolved Problems Problem Noted Date Diagnosed Date Resolved Date Hematuria 12/16/2016 07/17/2017 documented as of this encounter (statuses as of 02/19/2024) Immunizations Name Administration Dates Next Due COVID-19 mRNA, LNP-s, No Pre serve, 2-Dose Series (Moderna) 08/26/2023 COVID-19 mRNA, LNP-s, No Pre serve, 2-Dose Series (908 Devices) 11/13/2020,10/16/2020 Pneumococcal Conjugate Vacc, 13 Valent (Prevnar) [...] Sign Reading Time Taken Comments Blood Pressure 109/72 02/13/2024 3:12 PM EDT Pulse 75 02/13/2024 3:12 PM EDT Temperature 36.8 C (98.2 F) 02/13/2024 3:12 PM ED T Respiratory Rate 18 02/13/2024 3:12 PM EDT Oxygen Saturation 97% 02/13/2024 3:12 PM EDT Inhaled Oxygen Concentration - - Weight - - Height - - Body Mass Index - - documented in this encounter Nursing Notes * Gwen Guerra LPN - 02/13/2024 3:15 PM EDT 1450: Pt arrived for Venofer 1/ infusion. PIV in LFA. Pt tolerated well. VSS. No complaints at this time. 1630: Pt tolerated Venofer infusion well. PIV removed intact. Pt to return in 2 weeks. Discharged in stable condition. documented in this encounter Plan of Treatment Upcoming Encounters Date Type Department Care Team (Late st Contact Info) Description 02/27/2024 2:30 PM EDT Hem/Onc Treatment Hematology/Oncology Treatment, [place] [address] [facility] [phone] 03/09/2024 1:40 PM EDT [facility] [address] [place] [address] [place] [phone] Janay Waters MD [address] [place] [address] [place] [address] 08/11/2024 2:45 PM EST Office Visit Hematology/Oncology [place] [address] [facility] [address] Walter Quintero MD 200 [facility] [place] [address] Health Maintenance Due Date Last Done Comments Cologuard 1994 Fecal Occult Blood Test 1994 Sigmoidoscopy 1994 Zoster Vaccines (1 of 2) 1999 Colonoscopy 08/17/2023 08/17/2013 Colorectal Cancer Screening 08/17/2023 COVID-19 Vaccine ( season) 2023 08/26/2023, 11/13/2020, 10/16/2020 DXA Scan 12/27/2023 12/26/2016 Mammogram 06/06/2024 06/06/2023, 06/17, 07/10/2012 GFR 01/21/2025 01/22/2024, 10/2022, 07/10/2023, Additional history [...] Primary documented in this encounter Administered Medications Inactive Administered Medications - up to 3 most recent administrations Medication Order MAR Action Action Date Dose Rate Site Iron Sucrose (Venofer) 300 mg in NSS 250 mL ivpb 300 mg, IV Piggyback, ONCE, 1 dose, On Fri02/13/24 at 1630, Administer over 90 Minutes Start Infusion 02/13/2024 2:53 PM EDT 300 mg 193.33 mL/hr NSS infusion 500 mL, Intravenous, at 50 mL/hr, CONTINUOUS, Starting on Fri02/13/24 at 1600, Until Fri02/13/24 at 2030 Start Infusion 02/13/2024 2:51 PM EDT 500 mL 50 mL/hr documented in this encounter Additional Health Concerns Infection Onset Date Last Indicated Resolved Time Tuberculosis Rule-Out 02/21/2023 02/21/2023 documented as of this encounter Care Teams Contact Printer Dry Film Relationship Specialty Start Date End Date Janay Waters MD [address] [place] [address] [place] [phone] PCP - General Family Medicine 05/02/22 documented as of this encounter
--- OUTSIDE RECORDS SUMMARY | 2024-04-28 21:07 | External Medical Summary | Summary of Care ---
Author Name Unknown Organization [facility] Address [address] [place] [facility] [place] [place] [address] Phone [phone] Care Team Providers Care Machine Set Up Operator Paper Goods Name Role Phone Janay Waters MD Primary Care Provide r Reason for Referral * Evaluate & Treat - Unlimited Visits (Within 30 days (routine)) - Authorized Specialty Diagnoses / Procedures Referred By Epifanio horne Referred To Contact General Surgery Diagnoses Screen for colon cancer Janay Waters MD [address] [place] [address] [place] [id number] Referral ID Status Reason Start Date Expiration Date Visits Requested Visits Authorized [id number] Authorized Specialty Services Required 01/29/2024 999 999 Question Answer Referral Priority Within 30 days (routine) Where should this appointment be scheduled? External What condition is the patient being seen for? General Surgery Conditions What condition is the patient being seen for? Colonoscopy Reason for Visit * Reason Onset Date Comments Colonoscopy 01/29/2024 Encounter Details Date Type Department Care Team (Late st Contact Info) Description 01/29/2024 Telephone Family Medicine [address] [place] [phone] Janay Waters MD [address] [place] [address] [place] [address] Colonoscopy Allergies Active Allergy Reactions Criticality Noted Date Comments Azithromycin Nausea/vomiting High 09/03/2017 Codeine Low 08/05/2014 Other Reaction(s): Nausea, Not available, Vomiting documented as of this encounter (statuses as of 02/05/2024) Medications Medication Sig Dispensed Refills Start Date [...] EVERY MORNING 90 Tablet 2 09/18/2023 Active Potassium Chloride Rose ER 10 MEQ Oral Tablet Extended ReleaseIndications:Hy pokalemia Take 2 Tablets by mouth in the morning. 60 Tablet 2 11/14/2023 Active Cholestyramine 4 GM Oral Packet (Questran) [...] with breakfast. 90 Tablet 1 01/23/2024 Active documented as of this encounter (statuses as of 02/05/2024) Active Problems Problem Noted Date Diagnosed Date Diarrhea 06/26/2023 Hypokalemia 06/26/2023 Right middle lobe [...] as of this encounter (statuses as of 02/05/2024) Resolved Problems Problem Noted Date Diagnosed Date Resolved Date Hematuria 12/16/2016 07/17/2017 documented as of this encounter (statuses as of 02/05/2024) Immunizations Name Administration Dates Next Due COVID-19 [...] encounter Miscellaneous Notes * Telephone Encounter - Dana Lozoya OSA - 02/05/2024 2:35 PM EDT 03/25/24 1:[address] Schwartz, Gen Surg [facility]. I sent patient copy of order with date and time. Referral and records faxed to [phone] * Telephone Encounter - Janay Waters MD - 01/29/2024 8:42 PM EDT Referral ordered * Telephone Encounter - Dana Lozoya OSA - 01/29/2024 3:52 PM EDT Can you put an order in for Gen Surg to have this done in [place]. She will need to go through Gen Surg for this . * Telephone Encounter - Sam Russo LPN - 01/29/2024 3:49 PM EDT Pt identified as high risk by LGI and agreed to a colon[facility] Who can she be referred to for that location? documented in this encounter Plan of Treatment Upcoming Encounters Date Type Department Care Team (Late st Contact Info) Description 02/06/2024 2:45 PM EDT Office Visit Hematology/Oncology [address] [place] [address] Walter Quintero MD 200 [facility] [place] [address] 03/09/2024 1:40 PM EDT Office Visit Family Medicine [address] [phone] Janay Waters MD [address] [place] [address] [place] [address] Scheduled Referrals Name Type Priority Associated Diagnoses Orde r Schedule SURGERY REFERRAL OP Referral Within 30 da ys (routine) Screen for colon cancer Ordered: 01/29/2024 Health Maintenance Due Date Last Done Comments [...] as of this encounter Visit Diagnoses Diagnosis Screen for colon cancer- Primary Special screening for malignant neoplasms, colon documented in this encounter Additional Health Concerns Infection Onset Date Last Indicated Resolved Time Tuberculosis Rule-Out 02/21/2023 02/21/2023 documented as of this encounter Care Teams Machine Set Up Operator Paper Goods Relationship Specialty Start Date End Date Janay Waters MD [address] [place] [address] [place] [phone] PCP - General Family Medicine 05/02/22 documented as of this encounter
--- OUTSIDE RECORDS SUMMARY | 2024-04-28 21:07 | External Medical Summary | Summary of Care ---
Author Name Unknown Organization [facility] Address [address] [facility] [place] [address] Phone [phone] Care Team Providers Care Pressure Tester Name Role Phone Janay Waters MD Primary Care Provide r Reason for Visit * Reason Onset Date Comments Appointment 02/10/2024 Encounter Details Date Type Department Care Team (Late st Contact Info) Description 02/10/2024 Telephone Hematology/Oncology [facility] [place] 200 [facility] [place] [phone] Kristin Molina MD 200 [facility] [place] [address] Appointment Allergies Active Allergy Reactions Criticality Noted Date Comments Azithromycin Nausea/vomiting High 09/03/2017 Codeine Low 08/05/2014 Other Reaction(s): Nausea, Not available, Vomiting documented as of this encounter (statuses as of 02/10/2024) Medications Medication Sig Dispensed Refills Start Date [...] as of this encounter (statuses as of 02/10/2024) Active Problems Problem Noted Date Diagnosed Date [...] as of this encounter (statuses as of 02/10/2024) Resolved Problems Problem Noted Date Diagnosed Date Resolved Date Hematuria 12/16/2016 07/17/2017 documented as of this encounter (statuses as of 02/10/2024) Immunizations Name Administration Dates Next Due COVID-19 [...] Telephone Encounter - Gisele Dubon OSA - 02/10/2024 11:05 AM EDT Request Summary [[id number]] Procedure: ADULT GASTROENTEROLOGY REFERRAL OP Status: Needs Scheduling ([id number] Pending) Requested appt date: Authorizing: Walter Quintero MD in HEM/ONC [facility] Referral: [id number] (Authorized) Priority: Within 10 days (routine) Diagnosis: Iron deficiency anemia, unspecified iron deficiency anemia type [D50.9] History of malignant melanoma of skin [Z85.820] Encounter for follow-up examination after completed treatment for malignant neop... Comments 73 year female, a case of melanoma, treated with immunotherapy Keytruda, she would diarrhea which has improved, she was seen by GI at that time. Now she is evidence of iron deficiency, would like to have GI evaluation. Thanks. Dr. Walter Quintero Hem/Onc Notes called pt unavailable lm for return call to schedule hrh Order Specific Questions Referral Priority Within 10 days (routine) Where should this appointment be scheduled? [facility] For what condition is the patient being referred? All Gastro Conditions Request History Action Date and Time User Details Request Created 02/06/2024 15:19 Walter Quintero MD Appointment Encounter, Details Notes Edited 02/06/2024 15:45 Hanane Desai OSA Workqueue Summary Current Workqueues Entry Current Tab GASTRO RFL ORDERS [4065] 02/06/2024 15:19 Active Details documented in this encounter Plan of Treatment Upcoming Encounters Date Type Department Care Team (Late st Contact Info) Description 02/13/2024 2:30 PM EDT Hem/Onc Treatment Hematology/Oncology Treatment, [place] 200 [facility], [place] [phone] Park, Chair 2 Hem On[address] [place] [address] 03/09/2024 1:40 PM EDT Office Visit Family Medicine [address] [place] [phone] Janay Waetrs MD [address] [place] [address] [place] [address] 08/11/2024 2:45 PM EST Office Visit Hematology/Oncology [facility] 200 [facility] [place] [phone] Walter Quintero MD 200 [facility] [place] [address] Health Maintenance Due Date Last Done Comments [...] documented as of this encounter Care Teams Pressure Tester Relationship Specialty Start Date End Date Janay Waters MD [address] [place] [address] [place] [phone] PCP - General Family Medicine 05/02/22 documented as of this encounter
--- OUTSIDE RECORDS SUMMARY | 2024-04-28 21:07 | External Medical Summary | Summary of Care ---
Author Name Unknown Organization [facility] Address [address] [place] [address] Phone [phone] Care Team Providers Care Nut Threader Name Role Phone Janay Waters MD Primary Care Provide r Reason for Visit * Reason Comments Infusion Venofer 09/18 Encounter Details Date Type Department Care Team (Latest Contact Info) Description 02/13/2024 2:30 PM EDT Hem/Onc Treatment Hematology/Oncology Treatment, [address] [phone] [place], Chair 2 Hem Onc [place] 200 [place] [address] Iron deficiency anemia, unspecified iron deficiency anemia type* Allergies Active Allergy Reactions Criticality Noted Date Comments Azithromycin Nausea/vomiting High 09/03/2017 Codeine Low 08/05/2014 Other Reaction(s): Nausea, Not available, Vomiting documented as of this encounter (statuses as of 02/13/2024) Medications Medication Sig Dispensed Refills Start Date [...] as of this encounter (statuses as of 02/13/2024) Active Problems Problem Noted Date Diagnosed Date [...] as of this encounter (statuses as of 02/13/2024) Resolved Problems Problem Noted Date Diagnosed Date Resolved Date Hematuria 12/16/2016 07/17/2017 documented as of this encounter (statuses as of 02/13/2024) Immunizations Name Administration Dates Next Due COVID-19 mRNA, LNP-s, No Pre serve, 2-Dose Series (Moderna) 08/26/2023 COVID-19 mRNA, LNP-s, No Pre serve, 2-Dose Series (Impulsiv) 11/13/2020,10/16/2020 Pneumococcal Conjugate Vacc, 13 Valent (Prevnar) [...] 2:30 PM EDT Hem/Onc Treatment Hematology/Oncology Treatment, [place] [address] [facility] [phone] 03/09/2024 1:40 PM EDT [facility] [address] [place] [address] [place] [phone] Janay Waters MD [address] [place] [address] [place] [address] 08/11/2024 2:45 PM EST Office Visit Hematology/Oncology [place] [address] [place] [address] Walter Quintero MD 200 [facility] [place] [address] Health Maintenance Due Date Last Done Comments [...] ONCE PRN Other, Hypersensitivity Reaction, Starting on Fri02/13/24 at 1450, Until 02/14/24 at 1449, For 24 hours EPINEPHrine 1 MG/ML inj 0.3 mg 0.3 mg, Intramuscular, ONCE PRN Other, Hypersensitivity Reaction or Anaphylaxis, Starting on Fri02/13/24 at 1450, Until 02/14/24 at 1449, For 24 hours hEParin 100 UNIT/ML Lock Flush inj 500 Units 500 Units (5 mL), IV Lock, PRN Other, IV Flush, Starting on Fri02/13/24 at 1450, Until 02/14/24 at 1449, For 24 hours, Do not flush if lock, PICC, or central line not in place; IV infusing or unable to flush. Hydrocortisone Sod Suc (PF) (Solu-Cortef) inj 100 mg 100 mg, IV Push, ONCE PRN Other, Hypersensitivity Reaction, Starting on Fri02/13/24 at 1450, Until 02/14/24 at 1449, For 24 hours NSS infusion 500 mL, Intravenous, at 50 mL/hr, CONTINUOUS, Starting on Fri02/13/24 at 1600, Until 02/14/24 at 0159 Start Infusion 02/13/2024 2:51 PM EDT 500 mL 50 mL/hr oxygen GAS Inhalation, OXYGEN, First dose on Fri02/13/24 at 1600, Until Discontinued, Device/Managed by: Low [...] Push, PRN Other, IV Flush, Starting on Fri02/13/24 at 1450, Until 02/14/24 at 1449, For 24 hours, Do not flush if [...] 2:53 PM EDT 300 mg 193.33 mL/hr documented in this encounter Additional Health Concerns Infection Onset Date Last Indicated Resolved Time Tuberculosis Rule-Out 02/21/2023 02/21/2023 documented as of this encounter Care Teams Nut Threader Relationship Specialty Start Date End Date Jaany Waters MD [address] [place] [address] [place] [phone] PCP - General Family Medicine 05/02/22 documented as of this encounter
--- OUTSIDE RECORDS SUMMARY | 2024-04-28 21:07 | External Medical Summary | Summary of Care ---
Author Name Unknown Organization [facility] Address [address] [facility] [place] [address] Phone [phone] Care Team Providers Care Porcelain Enamel Installer Name Role Phone Janay Waters MD Primary Care Provide r Reason for Visit * Reason Onset Date Comments Appointment 02/10/2024 Encounter Details Date Type Department Care Team (Late st Contact Info) Description 02/10/2024 Telephone Hematology/Oncology [facility] [place] [address] [facility] [place] [phone] Kristin Molina MD [address] [facility] [place] [address] Appointment Allergies Active Allergy Reactions Criticality Noted [...] encounter Miscellaneous Notes * Telephone Encounter - Angella Floyd OSA - 02/10/2024 11:56 AM EDT Message was already left for pt from order 02/06/24. * Telephone Encounter - Gisele Dubon OSA - 02/10/2024 11:05 AM EDT Request Summary [[id number]] Procedure: ADULT GASTROENTEROLOGY REFERRAL OP Status: Needs Scheduling (Pbcl-sk-[id number] Pending) Requested appt date: Authorizing: Walter Quintero MD in HEM/ONC [facility] Referral: [id number] (Authorized) Priority: Within 10 days (routine) Diagnosis: [...] Workqueues Entry Current Tab GASTRO RFL ORDERS [[id number]] 02/06/2024 15:19 Active Details documented in this encounter Plan of Treatment Upcoming Encounters Date Type Department Care Team (Late st Contact Info) Description 02/13/2024 2:30 PM EDT Hem/Onc Treatment Hematology/Oncology Treatment, [place] [address] [place] [phone] Mago, Chair 2 Hem Onc [facility] [address] [facility] [place] [address] 03/09/2024 1:40 PM EDT Office Visit Family Medicine [address] [phone] Janay Waters MD [address] [place] [address] [place] [address] 08/11/2024 2:45 PM EST Office Visit Hematology/Oncology [address] [place] [phone] Walter Quintero MD [address] [facility] [place] [address] Health Maintenance Due Date Last Done Comments Cologuard 1994 Fecal Occult Blood Test 1994 Sigmoidoscopy 1994 Zoster Vaccines (1 of 2) 1999 Colonoscopy 08/17/2023 08/17/2013 Colorectal Cancer Screening 08/17/2023 COVID-19 Vaccine ( season) 2023 08/26/2023, 11/13/2020, 10/16/2020 DXA Scan 12/27/2023 12/26/2016 Mammogram 06/06/2024 06/06/2023, 06/17, 07/10/2012 GFR 01/21/2025 01/22/2024, 11/0 10/2022, 07/10/2023, Additional [...] documented as of this encounter Care Teams Porcelain Enamel Installer Relationship Specialty Start Date End Date Janay Waters MD [address] [place] [address] [place] [phone] PCP - General Family Medicine 05/02/22 documented as of this encounter
--- OUTSIDE RECORDS SUMMARY | 2024-04-28 21:07 | External Medical Summary | Summary of Care ---
Author Name Unknown Organization [facility] Address [address] [facility] [place] [address] Phone [phone] Care Team Providers Care Face Painter Name Role Phone Janay Waters MD Primary Care Provide r Reason for Visit * Reason Onset Date Comments Other 02/06/2024 Venofer Encounter Details Date Type Department Care Team (Late st Contact Info) Description 02/06/2024 Telephone Hematology/Oncology [facility] [address] [facility] [place] [phone] Walter Quintero MD 200 [place] [address] Other (Venofer) Allergies Active Allergy Reactions Criticality Noted [...] Encounter - Gisele Dubon OSA - 02/10/2024 8:47 AM EDT Apt scheduled Pt aware * Telephone Encounter - Keyla Kelley RN - 02/10/2024 7:40 AM EDT Scheduling: please call patient to schedule 2 hour appt "venofer 09/18" (Leon). Thanks! Patient will need venofer every other week x4. * Telephone Encounter - Kathy Kuo LPN - 02/06/2024 3:55 PM EDT Order received for Venofer. [facility] plan built and routed to provider. No prior authorization required. documented in this encounter Plan of Treatment Upcoming Encounters Date Type Department Care Team (Late st Contact Info) Description 02/13/2024 2:30 PM EDT Hem/Onc Treatment Hematology/Oncology [address] [phone] Mago, Chair 2 Hem Onc [address] [place] [address] 03/09/2024 1:40 PM EDT Office Visit Family Medicine [address] [place] [phone] Janay Waters MD [address] [place] [address] [place] [address] 08/11/2024 2:45 PM EST Office Visit Hematology/Oncology [facility] [place] [address] [facility] [place] [phone] Walter Quintero MD [address] [facility] [place] [address] Health Maintenance Due Date Last Done Comments [...] documented as of this encounter Care Teams Face Painter Relationship Specialty Start Date End Date Janay Waters MD [address] [place] [address] [place] [phone] PCP - General Family Medicine 05/02/22 documented as of this encounter
--- OUTSIDE RECORDS SUMMARY | 2024-04-28 21:07 | External Medical Summary | Summary of Care ---
Author Name Unknown Organization [facility] Address [address] [facility] [place] [address] Phone [phone] Care Team Providers Care Ekg Monitor Tech Name Role Phone Janay Waters MD Primary Care Provide r Reason for Referral * Evaluate & Treat - Unlimited Visits (Within 10 days (routine)) - Authorized Specialty Diagnoses / Procedures Referred By Epifanio horne Referred To Contact Gastroenterology Diagnoses Iron deficiency anemia, unspecified iron deficiency anemia type History of malignant melanoma of skin Encounter for follow-up examination after completed treatment for malignant neoplasm Walter Quintero MD [address] [place] [id number] Referral ID Status Reason Start Date Expiration Date Visits Requested Visits Authorized [id number] Authorized Specialty Services Required 02/06/2024 999 999 Question Answer Referral Priority Within 10 days (routine) Where should this appointment be scheduled? [facility] For what condition is the patient being referred? All Gastro Conditions Comments 73 year female, a case of melanoma, treated with immunotherapy Keytruda, she would diarrhea which has improved, she was seen by GI at that time. Now she is evidence of iron deficiency, would like to have GI evaluation. Thanks. Dr. Walter Quintero Hem/Onc Reason for Visit * Reason Comments Follow Up Encounter Details Date Type Department Care Team (Late st Contact Info) Description 02/06/2024 2:45 PM EDT Office Visit Hematology/Oncology [place] [address] [place] [address] [phone] Walter Quintero MD [address] [place] [address] Encounter for follow-up examination after completed treatment for malignant neoplasm*; Iron deficiency anemia, unspecified iron deficiency anemia type; History of malignant melanoma of skin Allergies Active Allergy Reactions Criticality Noted Date Comments Azithromycin Nausea/vomiting High 09/03/2017 Codeine Low 08/05/2014 Other Reaction(s): Nausea, Not available, Vomiting documented as of this encounter (statuses as of 02/06/2024) Medications Medication Sig Dispensed Refills Start Date [...] as of this encounter (statuses as of 02/06/2024) Active Problems Problem Noted Date Diagnosed Date [...] as of this encounter (statuses as of 02/06/2024) Resolved Problems Problem Noted Date Diagnosed Date Resolved Date Hematuria 12/16/2016 07/17/2017 documented as of this encounter (statuses as of 02/06/2024) Immunizations Name Administration Dates Next Due COVID-19 [...] Sign Reading Time Taken Comments Blood Pressure 131/74 02/06/2024 2:43 PM EDT Pulse 76 02/06/2024 2:43 PM EDT Temperature 36.2 C (97.2 F) 02/06/2024 2:43 PM ED T Respiratory Rate 17 02/06/2024 2:43 PM EDT Oxygen Saturation 95% 02/06/2024 2:43 PM EDT Inhaled Oxygen Concentration - - Weight - - Height - - Body Mass Index - - documented in this encounter Progress Notes * Walter Quintero MD - 02/06/2024 2:45 PM EDT Hematology/Oncology Outpatient Clinic [facility] [place] [address] [place] [address] Name: Tamiko Hagen Date: 06/05/2023 CHIEF COMPLAINT: Tamiko Hagen is a 72 year old female here today for f/u visit today. 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 Stage II B. DATE OF DIAGNOSIS: 06/12/22 TREATMENT HISTORY: excisional biopsy 06/12/2022 resection and sentinel for biopsy on 07/15/2022 CURRENT TREATMENT: - Currently she is on oral iron replacement therapy 1 tablet every day next para planning for intravenous iron in the form Venofer every other week x4 Earlier she completed adjuvant immunotherapy with Keytruda every 21 days for 1 year (09/03/22 - 06-05-2024) DIAGNOSTIC WORKUP: She had blackish skin lesion involving the right forearm for the last few years but lately increasein the size, did not have any local bleeding. She had excisional biopsyp 06/12/2022) -invasive melanoma, depth of invasion at least 4 mm, She was then seen by Dr. Camp, underwent additional resection and sentinel for biopsy on 07/15/2002 at [facility] Final pathology showed residual invasive melanoma 1.7 mm, negative margin -3 sentinel lymph nodes negative for metastatic disease. Overall TNM staging --> T4 a N0 M0, stage IIB. OTHER IMPORTANT HISTORY: - bipolar disorder, she is on Depakote -chronic bilateral leg edema for the last 6 to 7 years. -in May 2022 she had injury to the left leg, chronic wound involving the area, she follows with wound care clinic. HISTORY OF PRESENT ILLNESS: Tamiko Hagen is a 72 year old female with a history as outlined above. Currently here for f/u visit today , , accompanied by her , ambulating with the help of the wheelchair. Now diarrhea has improved, she has off the immunotherapy since May of 2023. No nausea no vomiting, she has underlying bipolar disorder, she is on Depakote, she would another medication, she will receive a psychiatrist for that. Previously noted leg edema has improved. No bleeding from the sites but recent blood workup with a evidence of iron deficiency, she is taking oral iron therapy. She says that she has not able to tolerate oral iron very well. Past Medical History: Diagnosis Date Bipolar disorder (HCC) Dr. Hummel Hematuria following with urology Hypertension goal BP (blood pressure) < 140/90 Renal cyst Past Surgical History: Procedure Laterality Date BRONCHOSCOPY, DIAGNOSTIC N/A 02/21/2023 BRONCHOSCOPY DIAGNOSTIC WITH OR WITHOUT WASHING performed by Herbie Brizuela MD at ENDOSCOPY [facility] [place] EXC TUMOR SOFT TISSUE UPPER ARM/ELBOW SUBQ 3CM OR MORE Right 07/15/2022 done at [facility] by Dr Camp Social History Socioeconomic History Marital status: Spouse name: Not on file Number of children: Not on file Years of education: Not on file Highest education level: Not on file Occupational History Not on file Tobacco Use Smoking status: Never Passive exposure: Never Smokeless tobacco: Never Vaping Use Vaping status: Never Used Substance and Sexual Activity Alcohol use: No Drug use: No Sexual activity: Not on file Other Topics Concern Not on file Social History Narrative Not on file Social Determinants of Health Financial Resource Strain: Not on file Food Insecurity: No Food Insecurity (01/30/2024) Hunger Vital Sign Worried About Running Out of Food in the Last Year: Never true Ran Out of Food in the Last Year: Never true Transportation Needs: Not on file Physical Activity: Not on file Stress: Not on file Social Connections: Not on file Intimate Partner Violence: Not on file Housing Stability: Not on file Review of patient's allergies indicates: Allergen Reactions Azithromycin Nausea/vomiting Codeine Other Reaction(s): Nausea, Not available, Vomiting Current Outpatient Medications Medication Sig Dispense Refill Cholecalciferol (VITAMIN D3) 3000 UNITS Tablet Take 1 Tablet by mouth in the morning. Ibuprofen 600 MG Oral Tablet (Motrin) Take 1 Tablet by mouth every 6 hours as needed. Divalproex Sodium ER 500 MG Oral Tablet Extended Release 24 Hour (Depakote ER) Take 1 Tablet (500 mg) by mouth in the morning and 1 Tablet (500 mg) before bedtime. 60 Tablet 2 Furosemide 20 MG Oral Tablet (Lasix) Take 2 Tablets by mouth in the morning. 180 Tablet 3 busPIRone HCl 10 MG Oral Tablet (Buspar) TAKE ONE TABLET BY MOUTH IN THE MORNING and before [id number] Tablet 3 Folic Acid 1 MG Oral Tablet Take 1 Tablet by mouth in the morning. 90 Tablet 3 Losartan Potassium 50 MG Oral Tablet (Cozaar) TAKE 1 TABLET BY MOUTH EVERY MORNING 90 Tablet 2 Potassium Chloride Rose ER 10 MEQ Oral Tablet Extended Release Take 2 Tablets by mouth in the morning. 60 Tablet 2 Cholestyramine 4 GM Oral Packet (Questran) Take 1 Packet by mouth in the morning and 1 Packet before bedtime. mixed with liquid.. 180 Packet 1 Sertraline HCl 25 MG Oral Tablet (Zoloft) TAKE ONE TABLET BY MOUTH IN THE MORNING 90 Tablet 1 Ascorbic Acid 1000 MG Oral Tablet Take 1 Tablet by mouth in the morning. Ferrous Sulfate 325 (65 Fe) MG Oral Tablet (Feosol) Take 1 Tablet by mouth daily with breakfast. 90Tablet 1 No current facility-administered medications for this visit. REVIEW OF SYSTEMS: See HPI - otherwise negative OBJECTIVE: BP 131/74 (BP Site: Left Arm, BP Position: Sitting, BP Cuff Size: Regular) | Pulse 76 | Temp 36.2 C (97.2 F) (Tympanic) | Resp 17 | SpO2 95% PHYSICAL EXAM: ECOG: Performance Status 1-2 General Appearance: No acute distress Lymph Nodes: Normal - No palpable lymph nodes in the neck or supraclavicular areas Lungs/Thorax: Normal - Clear to auscultation Heart: Normal - Regular rate and rhythm, normal S1, S2, no appreciable murmurs Pulses/Extremities: large BLE edema with venous stasis changes Neurologic: alert and oriented x 4, ambulates with walker LABS: Blood workup done on 01/22/2024: -BUN/Creat: 18/0.7, Calcium 9.6, normal LFT. -WBC 6007, H&H of 9.9/32.3, MCV 98, Platelet count of 215747 -folic acid --> > 20, Vitamin B12 --> 503 -Absolute reticulocyte count --> 51,700 -Ferritin level --> 66 -Serum iron: 29, TIBC 339, iron saturation 9% -TSH --> 1.62' __ PET-CT (02/03/2024) 1. Multiple new nodular opacities within both lungs, as detailed above which the overall pattern appears waxing and waning over several prior CTs. This would favor a chronic atypical infectious process over metastatic disease. Continued CT chest follow-up recommended. 2. No other abnormal areas of uptake are identified. IMPRESSION/PLAN: Melanoma involving the right forearm Encounter for immunotherapy MAC infection Hypokalemia Anemia- iron deficiency I reviewed with her regarding the recent PET-CT scan findings, previously noted lung nodule opacities more of atypical infectious process. She had a bronchoscopic seen and It was LORI earlier. Does not appear to be a melanoma related. I reviewed blood workup done recently, hemoglobin dropped down to around 9 g/dL, iron saturation pancho the lower side around 9 present, she is on oral iron replacement therapy. Would like to have GI follow-up/evaluation and to consider for endoscopic checkup. Regarding iron deficiency, I would like to give her intravenous iron in the form of Venofer every other week x4. Will check CBCD Ferritin, iron profile about 1 month after last IV iron therapy. She should see Infectious Disease specialist as planned earlier. I am planning to see her in about [address] Walter Quintero Hem/Onc (This note was completed using the dictation program Fluency Direct. As such, there may be misspellings word substitutions, or other variations that should not change the essence of the clinical content of this encounter note. If there is need for further clarification, please direct questions to the provider listed above.) documented in this encounter Nursing Notes * Gwen Patel, MENA SEWELL - 02/06/2024 2:47 PM EDT Patient identifed by name and birthdate Do you have any concerns about pain management for today's visit? Yes. Patient instructed to discuss pain concerns with provider during the visit today Living Will or Advance Directive for Health Care as noted on the problem list. [facility] is a way you can talk to your provider on line through e-mail. Would you like to sign up? I can activate it for you? NO Filed Vitals: 02/06/24 1443 BP: 131/74 Pulse: 76 Resp: 17 Temp: 36.2 C (97.2 F) TempSrc: Tympanic SpO2: 95% Patient was instructed to not get up on the exam table/exam chair until directed and assisted by their provider; patient is to remain seated in the chair/ wheelchair/ exam table/ exam chair for fall prevention and safety reasons. Patient is aware to have assistance to step down off exam table/exam chair with personnel. Patient voiced full comprehension of instructions. documented in this encounter Plan of Treatment Upcoming Encounters Date Type Department Care Team (Late st Contact Info) Description 03/09/2024 1:40 PM EDT Office Visit Family Medicine [address] [phone] Janay Waters MD [address] [place] [address] [place] [phone] 08/11/2024 2:45 PM EST Office Visit Hematology/Oncology [facility] [address] [place] [address] Walter Quintero MD 200 [place] [address] Scheduled Referrals Name Type Priority Associated Diagnoses Order Schedule ADULT GASTROENTEROLOGY REFERRAL OP Referral Within 10 days (routine) Iron deficiency anemia, unspecified iron deficiency anemia type History of malignant melanoma of skin Encounter for follow-up examination after completed treatment for malignant neoplasm Ordered: 02/06/2024 Health Maintenance Due Date Last Done Comments Cologuard 1994 Fecal Occult Blood Test 1994 Sigmoidoscopy 1994 Zoster Vaccines (1 of 2) 1999 Colonoscopy 08/17/2023 08/17/2013 Colorectal Cancer Screening 08/17/2023 COVID-19 Vaccine ( season) 2023 08/26/2023, 11/13/2020, 10/16/2020 DXA Scan 12/27/2023 12/26/2016 Mammogram 06/06/2024 06/06/2023, 06/17, 07/10/2012 GFR 01/21/2025 01/22/2024, 10/2022, 07/10/2023, Additional history exists Albumin/Creatinine Ratio 05/13/2025 05/13/2022 Lipid Panel 04/17/2027 04/17/2022, 0 10/2016, 04/11/2016 DTaP,Tdap,and Td Vaccines (3 - [...] as of this encounter Visit Diagnoses Diagnosis Encounter for follow-up examination after completed treatment for malignant neoplasm- Primary Unspecified follow-up examination Iron deficiency anemia, unspecified iron deficiency anemia type History of malignant melanoma of skin Personal history of malignant melanoma of skin documented in this encounter Additional Health Concerns Infection Onset Date Last Indicated Resolved Time Tuberculosis Rule-Out 02/21/2023 02/21/2023 documented as of this encounter Care Teams Ekg Monitor Tech Relationship Specialty Start Date End Date Janay Waters MD [address] [place] [address] [place] [phone] PCP - General Family Medicine 05/02/22 documented as of this encounter"
--- OUTSIDE RECORDS SUMMARY | 2024-04-28 21:07 | External Medical Summary | Summary of Care ---
Author Name Unknown Organization [facility] Address [address] [place] [address] Phone [phone] Care Team Providers Care Safety Sealer Name Role Phone Janay Waters MD Primary Care Provide r Reason for Visit * Reason Onset Date Comments Appointment 02/06/2024 Office visit Encounter Details Date Type Department Care Team (Late st Contact Info) Description 02/06/2024 Telephone Gastroenterology, [facility] [address] [facility] [place] [address] Specified, Zz No Resource [address] [place] [address] Appointment (Office visit ) Allergies Active Allergy Reactions Criticality Noted Date [...] encounter Miscellaneous Notes * Telephone Encounter - Hanane Desai OSA - 02/06/2024 3:43 PM EDT Called pt to schedule referral appt from dr vila for a follw up gastro appt. Pt was unavailable lmfor pt to return call to schedule. Pt could see nicole in [place] if there is openings if she doesn't want to come to [facility] to be seen. documented in this encounter Plan of Treatment Upcoming Encounters Date Type Department Care Team (Late st Contact Info) Description 03/09/2024 1:40 PM EDT Office Visit Family Medicine [address] [phone] Janay Waters MD [address] [place] [address] [place] [address] 08/11/2024 2:45 PM EST Office Visit Hematology/Oncology [place] [address] [place], [place] [address] [phone] Walter Vila MD 200 [facility] [place] [address] Health Maintenance Due Date Last Done Comments [...] documented as of this encounter Care Teams Safety Sealer Relationship Specialty Start Date End Date Janay Waters MD [address] [place] [address] [place] [address] PCP - General Family Medicine 05/02/22 documented as of this encounter
--- OUTSIDE RECORDS SUMMARY | 2024-04-28 21:07 | External Medical Summary | Summary of Care ---
Author Name Unknown Organization [facility] Address [address] [facility] [address] Phone [phone] Care Team Providers Care Mail Technician Name Role Phone Janay Waters MD Primary Care Provide r Reason for Visit * Reason Comments eRx-Medication Refill Encounter Details Date Type Department Care Team (Late st Contact Info) Description 02/06/2024 Refill Family Medicine [address] [phone] Janay Waters MD [address] [place] [address] [place] [address] Hypokalemia Allergies Active Allergy Reactions Criticality Noted Date Comments Azithromycin Nausea/vomiting High 09/03/2017 Codeine Low 08/05/2014 Other Reaction(s): Nausea, Not available, Vomiting documented as of this encounter (statuses as of 02/08/2024) Medications Medication Sig Dispensed Refills Start Date End Date Status Cholecalciferol (VITAMIN D3) 3000 UNITS Tablet Take 1 Tablet by mouth in the morning. Active Ibuprofen 600 MG Oral Tablet (Motrin) Take 1 Tablet by mouth every 6 hours as needed. Active Divalproex Sodium ER 500 MG Oral Tablet Extended Release 24 Hour (Depakote ER)Indications:Bi polar disorder in partial remission, most recent episode unspecified type (HCC) Take 1 Tablet (500 mg) by mouth in the morning and 1 Tablet (500 mg) before bedtime. 60 Tablet 2 08/02/2022 Active Furosemide 20 MG Oral Tablet (Lasix)Indication s:Hypertension goal BP (blood pressure) < 140/90,Bilateral lower extremity edema,Bilateral leg edema Take 2 Tablets by mouth in the morning. 180 Tablet 3 01/10/2023 Active busPIRone HCl 10 MG Oral Tablet (Buspar)Indicatio ns:Anxiety TAKE ONE TABLET BY MOUTH IN THE MORNING and before bedtime 60 Tablet 3 01/30/2023 Active Folic Acid 1 MG Oral TabletIndications :Anemia due to folic acid deficiency, unspecified deficiency [...] Active Sertraline HCl 25 MG Oral Tablet (Zoloft)Amytio ns:Bipolar disorder in partial remission, most recent episode [...] Rose ER 10 MEQ Oral Tablet Extended ReleaseIndication s:Hypokalemia TAKE TWO TABLETS BY MOUTH IN THE MORNING 90 Tablet 1 02/08/2024 Active Potassium Chloride Rose ER 10 MEQ Oral Tablet Extended ReleaseIndication s:Hypokalemia Take 2 Tablets by mouth in the morning. 60 Tablet 2 11/14/2023 02/08/2024 Discontinued documented as of this encounter (statuses as of 02/08/2024) Active Problems Problem Noted Date Diagnosed Date [...] as of this encounter (statuses as of 02/08/2024) Resolved Problems Problem Noted Date Diagnosed Date Resolved Date Hematuria 12/16/2016 07/17/2017 documented as of this encounter (statuses as of 02/08/2024) Immunizations Name Administration Dates Next Due COVID-19 [...] encounter Miscellaneous Notes * Telephone Encounter - Archie Pillai RPh - 02/08/2024 10:20 PM EDTSigned Prescriptions: Disp Refills Potassium Chloride Rose ER 10 MEQ Oral Tab*90 Tab*1 Sig: TAKE TWO TABLETS BY MOUTH IN THE MORNING Authorizing Provider: JANAY WATERS Ordering User: ARCHIE PILLAI * Telephone Encounter - Interface, E-Rx Ss Inbound - 02/08/2024 6:01 AM EDT Pending Prescriptions: Disp Refills Potassium Chloride Rose ER 10 MEQ Oral Tab*60 Tab*0 Sig: TAKE TWO TABLETS BY MOUTH IN THE MORNING documented in this encounter Plan of Treatment Upcoming Encounters Date Type Department Care Team (Late st Contact Info) Description 03/09/2024 1:40 PM EDT Office Visit Family Medicine [address] [place] [phone] Janay Waters MD [address] [place] [address] [place] [address] 08/11/2024 2:45 PM EST Office Visit Hematology/Oncology [facility] [place] [address] [facility] [place] [phone] Walter Quintero MD 200 [facility] [place] [address] Health Maintenance Due Date Last Done Comments [...] as of this encounter Visit Diagnoses Diagnosis Hypokalemia Hypopotassemia documented in this encounter Additional Health Concerns Infection Onset Date Last Indicated Resolved Time Tuberculosis Rule-Out 02/21/2023 02/21/2023 documented as of this encounter Care Teams Mail Technician Relationship Specialty Start Date End Date Janay Waters MD [address] [place] [address] [place] [address] PCP - General Family Medicine 05/02/22 documented as of this encounter
--- OUTSIDE RECORDS SUMMARY | 2024-04-28 21:08 | External Medical Summary | Summary of Care ---
Author Name Unknown Organization [facility] Address [address] [place] [address] Phone [phone] Care Team Providers Care Mixer Operator Tablets Name Role Phone Janay Waters MD Primary Care Provide r Encounter Details Date Type Department Care Team (Late st Contact Info) Description 01/30/2024 3:00 PM EDT Home Visit Care Coordination and Integration [address] [place] [address] Rosie Nascimento [facility] [address] [place] [address] Allergies Active Allergy Reactions Criticality Noted Date Comments Azithromycin Nausea/vomiting High 09/03/2017 Codeine Low 08/05/2014 Other Reaction(s): Nausea, Not available, Vomiting documented as of this encounter (statuses as of 02/02/2024) Medications Medication Sig Dispensed Refills Start Date [...] as of this encounter (statuses as of 02/02/2024) Active Problems Problem Noted Date Diagnosed Date [...] as of this encounter (statuses as of 02/02/2024) Resolved Problems Problem Noted Date Diagnosed Date Resolved Date Hematuria 12/16/2016 07/17/2017 documented as of this encounter (statuses as of 02/02/2024) Immunizations Name Administration Dates Next Due COVID-19 [...] on file documented as of this encounter Progress Notes * Rosie Nascimento, [facility] Rn Lvn - 01/30/2024 5:04 PM EDT Telemedicine visit: No Community Health Rn Lvn (KAYLIE) documentation: CHW home visit for med review, home safety eval and SDOH needs - patient would benefit from arranging home caregivers. Arrived to patient's home tried multiple doors and looked in garage for before patient eventually opened the door. Patient is very hard of hearing. Patient noticeably confused, unsure of "what outfit" CHW is with and why the visit was scheduled. Explained CHW purpose/role. Patient resides with her in a two story home with first floor set up. Patient's bedroom is directly off the kitchen. Patient expressed concern about her bed being low to the floor and difficult for her to transfer in/out of. Patient is able to comfortably sit at the edge of the bed. May benefit from a bed rail to assist with mobility. Bathroom is also located off the kitchen. Has a walk in shower with chair. Patient recalls she spends most of her time at the kitchen table - there is a TV on the wall that patient watches from the table. Patient recalls she and her in 2004 and moved to the area in 2005. She is originally from [place], moved to [place] with her family at 12, then moved to [place], [place] with her sister after high school. Her grew up in this town, then moved away until he and the patient bought their home here. Patient states her has multiple family members who live within walking distance of their home. States she doesn't interact with these family members, and they offerno help or support. Patient currently active with [facility]. She is appreciative of the aide coming to assist her with bathing. Advised patient this will only be short term. Patient is agreeable to in home caregivers. States she doesn't want "anyone from town who will be nosey and talk about us". Advised patient that CHW will make referral to [employer], and they will provide her with a list of home care agencies who service the area. Patient's was not home at the time of visit. CHW spent over 90 minutes with patient - did not make an appearance. Patient states spends a lot of time "out running around and visiting his family", and he often works in the garage when he is home. Observed patient's legs to be very edematous, no open or weeping areas observed. Patient states shehas difficulty standing for long periods due to her legs. States her cooks their evening meal. She often eats fries from the [employer] convenience store. will make deli meal or BLT sandwiches. Pork and beans, canned soup, chicken nuggets. Educated patient on sodium content in foods - advised that the food she is commonly eating is very high in salt. Patient expressed understanding, and appeared to be discouraged. Provided emotional support, and reassured patient that care team will support and help her manage and better understand her sodium intake. documented in this encounter Plan of Treatment Upcoming Encounters Date Type Department Care Team (Late st Contact Info) Description 02/03/2024 1:45 PM EDT Imaging Radiology [address] 132 [facility] [place] [address] 02/06/2024 2:45 PM EDT Office Visit Hematology/Oncology [facility] [address] [place] [phone] Walter Quintero MD 200 [facility] [place] [address] 03/09/2024 1:40 PM EDT Office Visit Family Medicine [address] [place] [phone] Janay Waters MD [address] [place] [address] [place] [address] Health Maintenance Due Date Last Done Comments Cologuard 1994 Fecal Occult Blood Test 1994 Sigmoidoscopy 1994 Zoster Vaccines (1 of 2) 1999 Colonoscopy 08/17/2023 08/17/2013 Colorectal Cancer Screening 08/17/2023 COVID-19 Vaccine (4 - season) 2023 08/26/2023, 11/13/2020, 10/16/2020 DXA Scan [...] documented as of this encounter Care Teams Mixer Operator Tablets Relationship Specialty Start Date End Date Janay Waters MD [address] [place] [address] [place] [address] PCP - General Family Medicine 05/02/22 documented as of this encounter
--- OUTSIDE RECORDS SUMMARY | 2024-04-28 21:08 | External Medical Summary | Summary of Care ---
Author Name Unknown Organization [facility] Address [address] [place] [address] Phone [phone] Care Team Providers Care Transition Teacher Name Role Phone Janay Waters MD Primary Care Provide r Encounter Details Date Type Department Care Team (Late st Contact Info) Description 01/30/2024 3:00 PM EDT Home Visit Care Coordination and Integration [address] [place] [address] Rosie Nascimento [facility] [address] [place] [address] Allergies Active Allergy [...] as of this encounter Progress Notes * Jennifer Rosado RN - 02/02/2024 11:39 AM EDT Anytime is as good as another, except tomorrow when at medical home. If resources is her big need, you would know about that more than I. I am sure you discussed with Office of Aging. Can call whenever. Thank you. * Rosie Nascimento, Community Health Weld Inspector - 01/30/2024 5:04 PM EDT Telemedicine visit: No Community Health Weld Inspector (KAYLIE) documentation: CHW home visit for med [...] area in 2005. She is originally from [place], moved to [place] with her family at 12, then moved to [place], [place] with her sister after high school. Her grew up in this town, then moved away until he and the patient bought their home here. Patient states her has multiple family members who live within walking distance of their home. States she doesn't interact with these family members, and they offerno help or support. Patient currently active with [facility]. She is appreciative of the aide coming to assist her with bathing. Advised patient this will only be short term. Patient is agreeable to in home caregivers. States she doesn't want "anyone from town who will be nosey and talk about us". Advised patient that CHW will make referral to [facility], and they will provide her with a [...] meal. She often eats fries from the [employer] convenience store. will make deli meal or [...] Description 02/03/2024 1:45 PM EDT Imaging Radiology [facility] [place] 132 [facility] [place] [address] 02/06/2024 2:45 PM EDT Office Visit Hematology/Oncology [place] [facility] [address] [place] [address] [phone] Walter Quintero MD [address] [place] [address] [address] 03/09/2024 1:40 PM EDT Office Visit Family Medicine [address] [place] [phone] Janay Waters MD [address] [place] [address] [place] [address] Health Maintenance Due Date Last Done Comments [...] documented as of this encounter Care Teams Transition Teacher Relationship Specialty Start Date End Date Janay Waters MD [address] [place] [address] [place] [address] PCP - General Family Medicine 05/02/22 documented as of this encounter
--- OUTSIDE RECORDS SUMMARY | 2024-04-28 21:08 | External Medical Summary | Summary of Care ---
Author Name Unknown Organization [facility] Address [address] [facility] [place] [address] Phone [phone] Care Team Providers Care Special Day Class Teacher Name Role Phone Janay Waters MD Primary Care Provide r Reason for Visit * Reason Onset Date Comments Home Health 01/28/2024 Encounter Details Date Type Department Care Team (Late st Contact Info) Description 01/28/2024 Telephone Family Medicine [address] [phone] Janay Waters MD [address] [place] [address] [place] [address] Home Health Allergies Active Allergy Reactions Criticality Noted Date Comments Azithromycin Nausea/vomiting High 09/03/2017 Codeine Low 08/05/2014 Other Reaction(s): Nausea, Not available, Vomiting documented as of this encounter (statuses as of 01/28/2024) Medications Medication Sig Dispensed Refills Start Date End Date Status Cholecalciferol (VITAMIN D3) 3000 UNITS Tablet Take 1 Tablet by mouth in the morning. 0 Active Ibuprofen 600 MG Oral Tablet (Motrin) Take 1 Tablet by mouth every 6 hours as needed. 0 Active Divalproex Sodium ER 500 MG Oral Tablet Extended Release 24 Hour (Depakote ER)Indications:Bip olar disorder in partial remission, most recent episode unspecified type (HCC) Take 1 Tablet (500 mg) by mouth in the morning and 1 Tablet (500 mg) before bedtime. 60 Tablet 2 08/02/2022 Active Furosemide 20 MG Oral Tablet (Lasix)Indications :Hypertension goal BP (blood pressure) < 140/90,Bilateral lower extremity edema,Bilateral leg edema Take 2 Tablets by mouth in the morning. 180 Tablet 3 01/10/2023 Active busPIRone HCl 10 MG Oral Tablet (Buspar)Indication s:Anxiety TAKE ONE TABLET BY MOUTH IN THE MORNING and before bedtime 60 Tablet 3 01/30/2023 Active Folic Acid 1 MG Oral TabletIndications: Anemia due to folic acid deficiency, unspecified deficiency type Take 1 Tablet by mouth in the morning. 90 Tablet 3 06/06/2023 Active Losartan Potassium 50 MG Oral Tablet (Cozaar) TAKE 1 TABLET BY MOUTH EVERY MORNING 90 Tablet 2 09/18/2023 Active Potassium Chloride Rose ER 10 MEQ Oral Tablet Extended ReleaseIndications :Hypokalemia Take 2 Tablets by mouth in the morning. 60 Tablet 2 11/14/2023 Active Cholestyramine 4 GM Oral Packet (Questran) Take 1 Packet by mouth in the morning and 1 Packet before bedtime. mixed with liquid.. 180 Packet 1 11/24/2023 Active Sertraline HCl 25 MG Oral Tablet (Zoloft)Indication s:Bipolar disorder in partial remission, most recent episode unspecified type (HCC),Current moderate episode of major depressive disorder without prior episode (HCC),Anxiety TAKE ONE TABLET BY MOUTH IN THE MORNING 90 Tablet 1 12/10/2023 Active Ascorbic Acid 1000 MG Oral Tablet Take 1 Tablet by mouth in the morning. 0 Active Ferrous Sulfate 325 (65 Fe) MG Oral Tablet (Feosol) Take 1 Tablet by mouth daily with breakfast. 90 Tablet 1 01/23/2024 Active Naproxen 500 MG Oral Tablet (Naprosyn)Indicati ons:Arthralgia of left wrist Take 1 Tablet by mouth 2 times a day with morning and evening meals. 20 Tablet 0 09/12/2022 01/28/2024 Discontinued (Medication List Clean Up) documented as of this encounter (statuses as of 01/28/2024) Active Problems Problem Noted Date Diagnosed Date [...] as of this encounter (statuses as of 01/28/2024) Resolved Problems Problem Noted Date Diagnosed Date Resolved Date Hematuria 12/16/2016 07/17/2017 documented as of this encounter (statuses as of 01/28/2024) Immunizations Name Administration Dates Next Due COVID-19 [...] the money to buy more. Never true 01/22/20 24 Within the past 12 months, t he food you bought just didn't last and you didn't have money to get more. Never true 01/22/2024 Sex and Gender Information Value Date Recorded Sex Assigned at Female 01/22/2024 3:34 PM EDT Gender Identity Female 01/22/2024 3:34 PM EDT Sexual Orientation Straight 01/22/2024 3: 34 PM EDT Job Start Date Occupation Industry Not on file Not on file Not on file documented as of this encounter Miscellaneous Notes * Telephone Encounter - Janay Waters MD - 01/28/2024 11:00 AM EDT Noted and thank you * Telephone Encounter - Kira King LPN - 01/28/2024 9:57 AM EDT Called patient. Scheduled [address] with [address] Patterson on 03/[address] Marrufo's office note. FYI Dr. Patterson * Telephone Encounter - Kira King LPN - 01/28/2024 9:34 AM EDT Admission/Start of Care Admission/Start of Care: Anna LANGFORD, Calling from: [facility] Referral ordered by: Dr. Marrufo Referral received for: Intermediate, PT, and OT Start of care completed on: 01/27/24 Vitals: T 99.1 -very hot in the patients home. P 84 RR 18 BP 112/64 SP O2 97% on room air Lung sounds - clear diminished Weight 133lb on patients scale 30.5cm left lower extremity - not pitting edema - slightly redness. No warmth. Denied pain. Narrative: Anna did start of care yesterday. Patient is no longer taking Naproxen. Removed from med list. Anna offered pill packs, but patient declined because it makes her anxious to have her pills all together. Patient complained of urinating too much with her diuretic, but didn't confirm if she takes it as directed. Anna educated patient to not take Questran with other meds, patient didn't know. It was very hard to get the patient to grasp because she was anxious. Educated patient on the importance of elevated her legs and taking her diuretics as directed. Shuffled gait, urinary incontinence. Denies UTI symptoms. Next PT visit(s) on 01/27 for eval, OT on 01/28. Patient has a rollator walker but it gets ahead of her, risk for falling. Nursing to see patient 1x weekly They will call with any updates or additional concerns from the upcoming HH visit. Last Office Visit: 06/04/2023 Advised that orders will be signed by Dr. Waters and to fax to the office for signature. [facility] documented in this encounter Plan of Treatment Upcoming Encounters Date Type Department Care Team (Late st Contact Info) Description 01/30/2024 3:00 PM EDT [facility] [address] Rosie Nascimento, [address] [place] [address] 02/03/2024 1:45 PM EDT Imaging Radiology [facility] 1st [facility] [place] 132 [facility] [place] [address] 02/06/2024 2:45 PM EDT Office Visit Hematology/Oncology [place] [facility] Stoddard [address] [place] [phone] Walter Quintero MD [address] [place] [address] 03/09/2024 1:40 PM EDT Office Visit Family Medicine [address] [place] [phone] Janay Waters MD [address] [place] [address] [place] [address] Health Maintenance Due Date Last Done Comments [...] documented as of this encounter Care Teams Special Day Class Teacher Relationship Specialty Start Date End Date Janay Waters MD [address] [place] [address] [place] [address] PCP - General Family Medicine 05/02/22 documented as of this encounter
--- OUTSIDE RECORDS SUMMARY | 2024-04-28 21:08 | External Medical Summary | Summary of Care ---
Author Name Unknown Organization [facility] Address [address] [facility] [place] [address] Phone [phone] Care Team Providers Care Electrical Mechanical Technician Name Role Phone Janay Waters MD Primary Care Provide r Reason for Referral * Evaluate & Treat - Unlimited Visits (Within 30 days (routine)) - Authorized Specialty Diagnoses / Procedures Referred By Epifanio horne Referred To Contact General Surgery Diagnoses Screen for colon cancer Janay Waters MD [address] [place] [address] [place] [address] Referral ID Status Reason Start Date Expiration Date Visits Requested Visits Authorized [id number] Authorized Specialty Services Required 01/29/[phone] [...] Contact Info) Description 01/29/2024 Telephone Family Medicine [address] [place] [phone] Janay Waters MD [address] [place] [address] [place] [address] Colonoscopy Allergies Active Allergy Reactions Criticality Noted Date Comments Azithromycin Nausea/vomiting High 09/03/2017 Codeine Low 08/05/2014 Other Reaction(s): Nausea, Not available, Vomiting documented as of this encounter (statuses as of 01/29/2024) Medications Medication Sig Dispensed Refills Start Date [...] as of this encounter (statuses as of 01/29/2024) Active Problems Problem Noted Date Diagnosed Date [...] as of this encounter (statuses as of 01/29/2024) Resolved Problems Problem Noted Date Diagnosed Date Resolved Date Hematuria 12/16/2016 07/17/2017 documented as of this encounter (statuses as of 01/29/2024) Immunizations Name Administration Dates Next Due COVID-19 [...] Gen Surg to have this done in [place]. She will need to go through Gen Surg for this . * Telephone Encounter - Sam Russo LPN - 01/29/2024 3:49 PM EDT Pt identified as high risk by LGI and agreed to a colonoscopy but declined an appointment at [facility] it at [facility]. Who can she be referred to for that location? documented in this encounter Plan of Treatment Upcoming Encounters Date Type Department Care Team (Late st Contact Info) Description 01/30/2024 3:00 PM EDT Home Visit Care Coordination and Integration [address] [place] [address] Rosie Nascimento [facility] Paraprofessional Interpreter [address] [place] [address] [place] [address] 02/03/2024 1:45 PM EDT Imaging Radiology [address] [place] [facility] [place] [address] 02/06/2024 2:45 PM EDT Office Visit Hematology/Oncology [facility] 200 [facility] [place] [phone] Walter Quintero MD 200 [facility] [address] 03/09/2024 1:40 PM EDT Office Visit Family Medicine [address] [place] [phone] Janay Waters MD [address] [place] [address] [place] [address] Scheduled Referrals Name Type Priority Associated Diagnoses [...] documented as of this encounter Care Teams Electrical Mechanical Technician Relationship Specialty Start Date End Date Janay Waters MD [address] [place] [address] [place] [phone] PCP - General Family Medicine 05/02/22 documented as of this encounter
--- OUTSIDE RECORDS SUMMARY | 2024-04-28 21:08 | External Medical Summary | Summary of Care ---
Author Name Unknown Organization [facility] Address [address] [facility] [address] Phone [phone] Care Team Providers Care Straightening Machine Feeder Name Role Phone Janay Waters MD Primary Care Provide r Reason for Visit * Reason Onset Date Comments Test Results 02/03/2024 Unexpected or In determinate Result Encounter Details Date Type Department Care Team (Late st Contact Info) Description 02/03/2024 Telephone Hematology/Oncology, [facility] [address] [place] [address] Naomie Preston CRNP [address] [place] [address] Test Results (Unexpected or Indeterminate ... Allergies Active Allergy Reactions Criticality Noted Date Comments Azithromycin Nausea/vomiting High 09/03/2017 Codeine Low 08/05/2014 Other Reaction(s): Nausea, Not available, Vomiting documented as of this encounter (statuses as of 02/03/2024) Medications Medication Sig Dispensed Refills Start Date [...] as of this encounter (statuses as of 02/03/2024) Active Problems Problem Noted Date Diagnosed Date [...] as of this encounter (statuses as of 02/03/2024) Resolved Problems Problem Noted Date Diagnosed Date Resolved Date Hematuria 12/16/2016 07/17/2017 documented as of this encounter (statuses as of 02/03/2024) Immunizations Name Administration Dates Next Due COVID-19 [...] encounter Miscellaneous Notes * Telephone Encounter - Christopher Serrano OSA - 02/03/2024 4:07 PM EDT Hello- The radiologist discovered an unexpected or indeterminate finding on Tamiko Hagen ([id number]) and asks that you review the following report. Study Type: PET CT WHOLE BODY 02/03/2024 IMPRESSION 1. Multiple new nodular opacities within both lungs, as detailed above which the overall pattern appears waxing and waning over several prior CTs. This would favor a chronic atypical infectious process over metastatic disease. Continued CT chest follow-up recommended. 2. No other abnormal areas of uptake are identified. 3. Chronic CT findings as above. Please respond to this encounter to acknowledge receipt of this message and take responsibility to ensure this report is reviewed. Thank you, PARKER Bales Client Service [facility] documented in this encounter Plan of Treatment Upcoming Encounters Date Type Department Care Team (Late st Contact Info) Description 02/06/2024 2:45 PM EDT Office [facility] [place] [phone] Walter Quintero MD 200 [facility] [place] [address] 03/09/2024 1:40 PM EDT Office Visit Family Medicine [address] [place] [phone] Janay Waters MD [address] [place] [address] [place] [address] Health Maintenance Due Date Last Done Comments [...] documented as of this encounter Care Teams Straightening Machine Feeder Relationship Specialty Start Date End Date Janay Waters MD [address] [place] [address] [place] [address] PCP - General Family Medicine 05/02/22 documented as of this encounter
--- OUTSIDE RECORDS SUMMARY | 2024-04-28 21:08 | External Medical Summary | Summary of Care ---
Author Name Unknown Organization [facility] Address [address] [facility] [place] [address] Phone [phone] Care Team Providers Care Stone Setter Metal Optical Frames Name Role Phone Janay Waters MD Primary Care Provide r Reason for Visit * Reason Onset Date Comments Test Results 01/23/2024 Encounter Details Date Type Department Care Team (Late st Contact Info) Description 01/23/2024 Telephone Family Practice [facility] [address] [place] [address] Jb Marrufo MD [address] [place] [address] Test Results Allergies Active Allergy Reactions Criticality Noted Date Comments Azithromycin Nausea/vomiting High 09/03/2017 Codeine Low 08/05/2014 Other Reaction(s): Nausea, Not available, Vomiting documented as of this encounter (statuses as of 01/23/2024) Medications Medication Sig Dispensed Refills Start Date [...] before bedtime. 60 Tablet 2 08/02/2022 Active Naproxen 500 MG Oral Tablet (Naprosyn)Indications :Arthralgia of left wrist Take 1 Tablet by mouth 2 times a day with morning and evening meals. 20 Tablet 0 09/12/2022 Active Furosemide 20 MG Oral Tablet (Lasix)Indications:Hy [...] as of this encounter (statuses as of 01/23/2024) Active Problems Problem Noted Date Diagnosed Date [...] as of this encounter (statuses as of 01/23/2024) Resolved Problems Problem Noted Date Diagnosed Date Resolved Date Hematuria 12/16/2016 07/17/2017 documented as of this encounter (statuses as of 01/23/2024) Immunizations Name Administration Dates Next Due COVID-19 [...] encounter Miscellaneous Notes * Telephone Encounter - Gregoria Ingram LPN - 01/23/2024 12:04 PM EDT Called pt and relayed information from Ramos. Pt was relaying information to as well.Pt voiced understanding. * Telephone Encounter - Jb Marrufo MD - 01/23/2024 7:53 AM EDT Reviewed nancy's lab results. Her potassium is NORMAL (4.5) - she should continue her current regimen. She remains mildly anemic with lack of iron stores - id like her to take an iron supplement 3x a week in the morning - Friday with her Vitamin C pill. Rx called to her pharmacy. Other labs ok. She should follow up as planned with Dr Quintero and Dr Waters. Please call and let her know. Ok to leave a message if you do not get in touch with them directly. Thanks. documented in this encounter Plan of Treatment Upcoming Encounters Date Type Department Care Team (Late st Contact Info) Description 01/23/2024 1:00 PM EDT Laboratory Laboratory [address] [place] [phone] [address] [place] [address] 02/03/2024 1:45 PM EDT Imaging Radiology [facility] [address] [facility] [place] [address] [place] [address] 02/06/2024 2:45 PM EDT Office Visit Hematology/Oncology [facility] [address] [place] [phone] Walter Quintero MD [address] [place] [address] Health Maintenance Due Date Last Done Comments [...] of this encounter Visit Diagnoses Diagnosis Iron deficiency- Primary Iron deficiency anemia, unspecified documented in this encounter Additional Health Concerns Infection Onset Date Last Indicated Resolved Time Tuberculosis Rule-Out 02/21/2023 02/21/2023 documented as of this encounter Care Teams Stone Setter Metal Optical Frames Relationship Specialty Start Date End Date Janay Waters MD [address] [place] [address] [place] [address] PCP - General Family Medicine 05/02/22 documented as of this encounter
--- OUTSIDE RECORDS SUMMARY | 2024-04-28 21:08 | External Medical Summary | Summary of Care ---
Author Name Unknown Organization [facility] Address [address] [facility] [place] [address] Phone [phone] Care Team Providers Care Channel Installer Name Role Phone Janay Waters MD Primary Care Provide r Encounter Details Date Type Department Care Team (Late st Contact Info) Description 01/29/2024 External Data Patient Risk Medial Allergies Active Allergy Reactions Criticality Noted Date [...] and Integration [address] [place] [address] Rosie Nascimento [facility] Metallurgical Specialist [address] [place] [address] [place] [address] 02/03/2024 1:45 PM EDT Imaging Radiology [address] 132 [facility] [place] [address] 02/06/2024 2:45 PM EDT Office Visit Hematology/Oncology [facility] 200 [facility] [place] [phone] Walter Quintero MD 200 [facility] [place] [address] 03/09/2024 1:40 PM EDT Office Visit Family Medicine [address] [place] [phone] Janay Waters MD [address] [place] [address] [place] [address] Health Maintenance Due Date Last Done Comments [...] documented as of this encounter Care Teams Channel Installer Relationship Specialty Start Date End Date Janay Waters MD [address] [place] [address] [place] [phone] PCP - General Family Medicine 05/02/22 documented as of this encounter
--- OUTSIDE RECORDS SUMMARY | 2024-04-28 21:08 | External Medical Summary | Summary of Care ---
Author Name Unknown Organization [facility] Address [address] [place] [facility] [place] [address] Phone [phone] Care Team Providers Care Social Work Program Coordinator Name Role Phone Janay Waters MD Primary Care Provide r Reason for Referral * Evaluate & Treat - Unlimited Visits (Within 30 days (routine)) - Authorized Specialty Diagnoses / Procedures Referred By Epifanio horne Referred To Contact General Surgery Diagnoses Screen for colon cancer Janay Waters MD [address] [place] [address] [place] [address] Referral ID Status Reason Start Date Expiration Date Visits Requested Visits Authorized [id number] Authorized Specialty Services Required 01/29/2024 999 999 [...] Contact Info) Description 01/29/2024 Telephone Family Medicine [address] [place] [phone] Janay Waters MD [address] [place] [address] [place] [address] Colonoscopy Allergies Active Allergy Reactions Criticality Noted Date Comments Azithromycin Nausea/vomiting High 09/03/2017 Codeine Low 08/05/2014 Other Reaction(s): Nausea, Not available, Vomiting documented as of this encounter (statuses as of 01/30/2024) Medications Medication Sig Dispensed Refills Start Date [...] as of this encounter (statuses as of 01/30/2024) Active Problems Problem Noted Date Diagnosed Date [...] as of this encounter (statuses as of 01/30/2024) Resolved Problems Problem Noted Date Diagnosed Date Resolved Date Hematuria 12/16/2016 07/17/2017 documented as of this encounter (statuses as of 01/30/2024) Immunizations Name Administration Dates Next Due COVID-19 [...] Gen Surg to have this done in [place]. She will need to go through Gen Surg for this . * Telephone Encounter - Sam Russo LPN - 01/29/2024 3:49 PM EDT Pt identified as high risk by LGI and agreed to a colonoscopy but declined an appointment at [facility] it at [facility]. Who can she be referred to for that location? documented in this encounter Plan of Treatment Upcoming Encounters Date Type Department Care Team (Late st Contact Info) Description 01/30/2024 3:00 PM EDT Home Visit Care Coordination and Integration [address] [place] [address] Rosie Nascimento [facility] Onsite Health Coach [address] [place] [address] [place] [address] 02/03/2024 1:45 PM EDT Imaging Radiology [address] [facility] [place] [address] 02/06/2024 2:45 PM EDT Office Visit Hematology/Oncology [facility] [address] [facility] [place] [phone] Walter Quintero MD [address] [facility] [place] [address] 03/09/2024 1:40 PM EDT Office Visit Family Medicine [address] [place] [phone] Janay Waters MD [address] [place] [address] [place] [address] Scheduled Referrals Name Type Priority Associated Diagnoses [...] documented as of this encounter Care Teams Social Work Program Coordinator Relationship Specialty Start Date End Date Janay Waters MD [address] [place] [address] [place] [phone] PCP - General Family Medicine 05/02/22 documented as of this encounter
--- OUTSIDE RECORDS SUMMARY | 2024-04-28 21:08 | External Medical Summary | Summary of Care ---
Author Name Unknown Organization [facility] Address [address] [facility] [place] [address] Phone [phone] Care Team Providers Care Drying Tumbler Operator Name Role Phone Janay Waters MD Primary Care Provide r Reason for Referral * Evaluate & Treat - Unlimited Visits (Within 10 days (routine)) - Authorized Specialty Diagnoses / Procedures Referred By Epifanio horne Referred To Contact Gastroenterology Diagnoses Special screening for malignant neoplasm of colon Janay Waters MD [address] [place] [address] [place] [address] Referral ID Status Reason Start Date Expiration Date Visits Requested Visits Authorized [id number] Authorized Ancillary Services Required 01/29/2024 1 1 Question Answer Referral Priority Within 10 days (routine) Where should this appointment be scheduled? [facility] Reason for Visit * Reason Onset Date Comments FYI 01/29/2024 LGI Encounter Details Date Type Department Care Team (Late st Contact Info) Description 01/29/2024 [facility] [place] [phone] Janay Waters MD [address] [place] [address] [place] [address] FYI (LGI) Allergies Active Allergy Reactions Criticality Noted Date Comments Azithromycin Nausea/vomiting High 09/03/2017 Codeine Low 08/05/2014 Other Reaction(s): Nausea, Not available, Vomiting documented as of this encounter (statuses as of 02/04/2024) Medications Medication Sig Dispensed Refills Start Date [...] as of this encounter (statuses as of 02/04/2024) Active Problems Problem Noted Date Diagnosed Date [...] as of this encounter (statuses as of 02/04/2024) Resolved Problems Problem Noted Date Diagnosed Date Resolved Date Hematuria 12/16/2016 07/17/2017 documented as of this encounter (statuses as of 02/04/2024) Immunizations Name Administration Dates Next Due COVID-19 [...] encounter Miscellaneous Notes * Telephone Encounter - Sam Arnold LPN - 02/04/2024 9:17 AM EDT Returned patients voicemail- message left for her to return call. * Telephone Encounter - Sam Arnold LPN - 02/02/2024 9:55 AM EDT Returned patients voicemail- unable to reach * Addendum Note - Sam Arnold LPN - 01/29/2024 3:48 PM EDTAddended by: SAM ARNOLD on: 01/29/2024 03:48 PM Modules accepted: Orders * Telephone Encounter - Sam Arnold LPN - 01/29/2024 3:47 PM EDT Through advanced analysis/trending of this patients Complete Blood Counts (CBC), they have been identified to have a positive LGI flag and at a higher risk for hidden bleeding in the intestine dueto several conditions such as ulcers, colon polyps, harmless conditions, or even colon cancer. This advanced analysis estimates the patient's risk of these kinds of conditions. It only indicatesthat the patient's chances to have one of these conditions are higher compared to most people. It does not indicate that the patient has any of these conditions but is highly recommended the patient have a colonoscopy for further evaluation. Patients with a positive LGI flag have a 40% chance (six times more likely) of having a serious GI pathology finding versus unflagged patients. I have contacted the patient regarding scheduling a colonoscopy. Colonoscopy outreach: Requested Outside Colonoscopy Pt wants a colonoscopy - wants it at [facility] only- message to office to see who she canbe referred to. Thank you. Sam Arnold LPN * Telephone Encounter - Sam Arnold LPN - 01/29/2024 1:26 PM EDT Through advanced analysis/trending of this patients Complete Blood Counts (CBC), they have been identified to have a positive LGI flag and at a higher risk for hidden bleeding in the intestine dueto several conditions such as ulcers, colon polyps, harmless conditions, or even colon cancer. This advanced analysis estimates the patient's risk of these kinds of conditions. It only indicatesthat the patient's chances to have one of these conditions are higher compared to most people. It does not indicate that the patient has any of these conditions but is highly recommended the patient have a colonoscopy for further evaluation. Patients with a positive LGI flag have a 40% chance (six times more likely) of having a serious GI pathology finding versus unflagged patients. I have contacted the patient regarding scheduling a colonoscopy. Colonoscopy outreach: Left message Thank you. Sam Arnold LPN documented in this encounter Plan of Treatment Upcoming Encounters Date Type Department Care Team (Late st Contact Info) Description 02/06/2024 2:45 PM EDT Office Visit Hematology/Oncology [employer] 200 [facility] [place] [phone] Walter Quintero MD 200 [facility] [place] [address] 03/09/2024 1:40 PM EDT Office Visit Family Medicine [address] [place] [phone] Janay Waters MD [address] [place] [address] [place] [address] Scheduled Referrals Name Type Priority Associated Diagnoses Orde r Schedule COLONOSCOPY, GI REFERRAL OP Referral Within 10 days (routine) Special screening for malignant neoplasm of colon Ordered: 01/29/2024 Health Maintenance Due Date Last [...] as of this encounter Visit Diagnoses Diagnosis Special screening for malignant neoplasm of colon- Primary Special screening for malignant neoplasms, colon documented in this encounter Additional Health Concerns Infection Onset Date Last Indicated Resolved Time Tuberculosis Rule-Out 02/21/2023 02/21/2023 documented as of this encounter Care Teams Drying Tumbler Operator Relationship Specialty Start Date End Date Janay Waters MD [address] [place] [address] [place] [address] PCP - General Family Medicine 05/02/22 documented as of this encounter
--- OUTSIDE RECORDS SUMMARY | 2024-04-28 21:08 | External Medical Summary | Summary of Care ---
Author Name Unknown Organization [facility] Address [address] [facility] [place] [address] Phone [phone] Care Team Providers Care Client Customer Manager Name Role Phone Janay Waters MD Primary Care Provide r Reason for Visit * Reason Onset Date Comments FYI 01/29/2024 LGI Encounter Details Date Type Department Care Team (Late st Contact Info) Description 01/29/2024 Telephone Family Medicine [address] [place] [phone] Janay Waters MD [address] [place] [address] [place] [address] FYI (LGI) Allergies Active Allergy Reactions Criticality [...] Miscellaneous Notes * Telephone Encounter - Sam Russo LPN - 01/29/2024 1:26 PM EDT Through [...] Colonoscopy outreach: Left message Thank you. Sam Russo LPN documented in this encounter Plan of Treatment Upcoming Encounters Date Type Department Care Team (Late st Contact Info) Description 01/30/2024 3:00 PM EDT Home Visit Care Coordination and Integration [address] [place] [address] Rosie Nascimento, Community [facility] Retail Loss Prevention Investigator [address] [place] [address] [place] [address] 02/03/2024 1:45 PM EDT Imaging Radiology [address] [place] [address] 02/06/2024 2:45 PM EDT Office Visit Hematology/Oncology [place] 200 [facility] [place] [address] Walter Quintero MD 200 [facility] [place] [address] 03/09/2024 1:40 PM EDT Office Visit Family Medicine [address] [place] [address] Janay Waters MD [address] [place] [address] [place] [address] Health Maintenance Due Date Last Done Comments Cologuard 1994 Fecal Occult Blood Test 1994 Sigmoidoscopy 1994 Zoster Vaccines (1 of 2) 1999 Colonoscopy 08/17/2023 08/17/2013 Colorectal Cancer Screening 08/17/2023 COVID-19 Vaccine ( season) 2023 08/26/2023, 11/13/2020, 10/16/2020 DXA Scan 12/27/2023 12/26/2016 Mammogram 06/06/2024 06/06/2023, 06/17, 07/10/2012 GFR 01/21/2025 01/22/2024, 1110/2022, 07/10/2023, Additional history [...] documented as of this encounter Care Teams Client Customer Manager Relationship Specialty Start Date End Date Janay Waters MD [address] [place] [address] [place] [address] PCP - General Family Medicine 05/02/22 documented as of this encounter
--- OUTSIDE RECORDS SUMMARY | 2024-04-28 21:08 | External Medical Summary | Summary of Care ---
Author Name Unknown Organization [facility] Address [address] [facility] [place] [address] Phone [phone] Care Team Providers Care Armored Car Guard And Driver Name Role Phone Janay Waters MD Primary Care Provide r Reason for Referral * Evaluate & Treat - Unlimited Visits (Within 10 days (routine)) - Authorized Specialty Diagnoses / Procedures Referred By Epifanio horne Referred To Contact Gastroenterology Diagnoses Special screening for malignant neoplasm of colon Janay Waters MD [address] [place] [address] [place] [address] Referral ID Status Reason Start Date Expiration Date Visits Requested Visits Authorized [id number] Authorized Ancillary Services Required 01/29/2024 1 1 Question Answer Referral Priority Within 10 days (routine) Where should this appointment be scheduled? [facility] Reason for Visit * Reason Onset Date Comments FYI 01/29/2024 LGI Encounter Details Date Type Department Care Team (Late st Contact Info) Description 01/29/2024 [facility] [place] [phone] Janay Waters MD [address] [place] [address] [place] [address] FYI (LGI) Allergies Active Allergy Reactions Criticality [...] encounter Miscellaneous Notes * Addendum Note - Sam Arnold LPN [...] wants a colonoscopy - wants it at [facility] only- message to office to see who [...] and Integration [address] [place] [address] Rosie Nascimento, [facility] [address] [place] [address] 02/03/2024 1:45 PM EDT Imaging Radiology [address] 132 [facility] [place] [address] 02/06/2024 2:45 PM EDT Office Visit Hematology/Oncology [place] 200 [place] [address] Walter Quintero MD 200 [facility] [place] [address] 03/09/2024 1:40 PM EDT Office Visit Family Medicine [address] [place] [address] Janay Waters MD [address] [place] [address] [place] [address] Scheduled Referrals Name Type Priority Associated Diagnoses [...] documented as of this encounter Care Teams Armored Car Guard And Driver Relationship Specialty Start Date End Date Janay Waters MD [address] [place] [address] [place] [phone] PCP - General Family Medicine 05/02/22 documented as of this encounter
--- OUTSIDE RECORDS SUMMARY | 2024-04-28 21:08 | External Medical Summary | Summary of Care ---
Author Name Unknown Organization [facility] Address [address] [facility] [place] [address] Phone [phone] Care Team Providers Care Making Department Preparer Name Role Phone Janay Waters MD Primary Care Provide r Reason for Referral * Evaluate & Treat - Unlimited Visits (Within 10 days (routine)) - Authorized Specialty Diagnoses / Procedures Referred By Epifanio horne Referred To Contact Gastroenterology Diagnoses Special screening for malignant neoplasm of colon Janay Waters MD [address] [place] [address] [place] [id number] Referral ID Status Reason Start Date Expiration Date Visits Requested Visits Authorized [id number] Authorized Ancillary Services Required 01/29/2024 1 1 Question Answer Referral Priority Within 10 days (routine) Where should this appointment be scheduled? [facility] Reason for Visit * Reason Onset Date Comments FYI 01/29/2024 LGI Encounter Details Date Type Department Care Team (Late st Contact Info) Description 01/29/2024 [facility] [place] [phone] Janay Waters MD [address] [place] [address] [place] [phone] FYI (LGI) Allergies Active Allergy Reactions Criticality [...] wants a colonoscopy - wants it at [facility] only- message to office to see [...] Description 02/03/2024 1:45 PM EDT Imaging Radiology [address] [place] [id number] 02/06/2024 2:45 PM EDT Office Visit Hematology/Oncology [facility] [address] [facility] [place] [phone] Walter Quintero MD [address] [facility] [place] [id number] 03/09/2024 1:40 PM EDT Office Visit Family Medicine [address] [place] [phone] Janay Waters MD [address] [place] [address] [place] [phone] Scheduled Referrals Name Type Priority Associated Diagnoses [...] documented as of this encounter Care Teams Making Department Preparer Relationship Specialty Start Date End Date Janay Waters MD [address] [place] [address] [place] [phone] PCP - General Family Medicine 05/02/22 documented as of this encounter
--- OUTSIDE RECORDS SUMMARY | 2024-04-28 21:08 | External Medical Summary | Summary of Care ---
Author Name Unknown Organization [facility] Address [address] [facility] [place] [place] [address] Phone [phone] Care Team Providers Care Acute Care Certified Nursing Assistant Name Role Phone Janay Waters MD Primary Care Provide r Reason for Visit * Reason Onset Date Comments Test Results 01/23/2024 Encounter Details Date Type Department Care Team (Late st Contact Info) Description 01/23/2024 Telephone Family Practice [facility] [address] [place] [address] Jb Marrufo MD [address] [place] [id number] Test Results Allergies Active [...] encounter Miscellaneous Notes * Telephone Encounter - Jb Marrufo MD - 01/23/2024 7:53 AM EDT Reviewed tamiko's lab results. Her potassium is NORMAL (4.5) [...] Description 01/23/2024 1:00 PM EDT Laboratory Laboratory [address] [place] [phone] [address] [place] [address] 02/03/2024 1:45 PM EDT Imaging Radiology [address] [facility] [place] [address] 02/06/2024 2:45 PM EDT Office Visit Hematology/Oncology [facility] [address] [facility] [place] [phone] Walter Quintero MD [address] [facility] [place] [address] Health Maintenance Due Date Last Done Comments [...] documented as of this encounter Care Teams Acute Care Certified Nursing Assistant Relationship Specialty Start Date End Date Janay Waters MD [address] [place] [address] [place] [phone] PCP - General Family Medicine 05/02/22 documented as of this encounter
--- OUTSIDE RECORDS SUMMARY | 2024-04-28 21:09 | External Medical Summary | Summary of Care ---
Author Name Unknown Organization [facility] Address [address] [place] [address] Phone [phone] Care Team Providers Care Coin Box Inspector Name Role Phone Janay Waters MD Primary Care Provide r Reason for Referral * Evaluate & Treat - Unlimited Visits (Within 10 days (routine)) - Authorized Specialty Diagnoses / Procedures Referred By Epifanio horne Referred To Contact HOME CARE / Home Care Diagnoses Bilateral lower extremity edema Lymphedema Bipolar affective disorder, remission status unspecified (HCC) Moderate dementia with anxiety, unspecified dementia type (HCC) Jb Marrufo MD [address] [place] [address] Referral ID Status Reason Start Date Expiration Date Visits Requested Visits Authorized [id number] Authorized Specialty Services Required 01/22/2024 999 999 Question Answer Referral Priority Within 10 days (routine) Where should this appointment be scheduled? Tony Comments Documentation of [id number] Encounter Addendum Patient Name: Tamiko Hagen I certify that this patient is under my care and that I, or a nurse practitioner or physician's psychological assistant working with me, had a [id number] encounter that meets the physician [id number] encounter requirements with this patient on: 01/22/2024. The encounter with the patient was in whole, or in part, for the following medical condition, which is the primary reason for home health care (List medical condition): ADL dysfunction I certify that, based on my findings, the following services are medically necessary home health services: Nursing To provide the following care/treatments: (All hospitalists not following the patient after discharge should complete this section): med management and pill airport planner, gait assessment, home safety Primary Care Physician to follow home care plan of care after discharge: Dr Waters My clinical findings support the need for the above services because: patient in incapable of managing her own medications or make her own best medical decisions Further, I certify that my clinical findings support that this patient is homebound (i.e. Absences from home require considerable and taxing effort and are for medical reasons or spiritism services or infrequently or of short duration when for other reason) because: She has significant lymphedema, does not drive, and does not go out of house to socialize due to psychiatric issues Physician Signature: ____Jb Marrufo Date of Signature: 01/22/2024 Physician Printed Name: Jb Marrufo MD Reason for Visit * Reason Comments Physical-Exam Pt here for annual C PE. Pt here for swelling in her legs that is not getting better for the last year. Pt has and healing open area on her left leg that pt is still concerned about. Pt is very confused about her medications and not really sure what she is taking Encounter Details Date Type Department Care Team (Late st Contact Info) Description 01/22/2024 3:20 PM EDT Office Visit Family Practice [facility] [address] [place] [id number] Jb Marrufo MD [address] [place] [place] [id number] Bilateral lower extremity edema*; Lymphedema; Venous insufficiency; Current moderate episode of major depressive disorder without prior episode (HCC); Hypertension goal BP (blood pressure) < 140/90; Risk and functional assessment; Malignant melanoma of right upper extremity (HCC); Bipolar affective disorder, remission status unspecified (HCC); Moderate dementia with anxiety, unspecified dementia type (HCC); Malignant melanoma of upper extremity, unspecified laterality (HCC); Essential (primary) hypertension; Anemia due to vitamin B12 deficiency, unspecified B12 deficiency type Allergies Active Allergy Reactions Criticality Noted Date Comments Azithromycin Nausea/vomiting High 09/03/2017 Codeine Low 08/05/2014 Other Reaction(s): Nausea, Not available, Vomiting documented as of this encounter (statuses as of 01/22/2024) Medications Medication Sig Dispensed Refills Start Date [...] 08/02/2022 Active Naproxen 500 MG Oral Tablet (Naprosyn)Indicat ions:Arthralgia of left wrist Take 1 Tablet by mouth 2 times a day with morning and evening meals. 20 Tablet 0 09/12/2022 Active Furosemide 20 MG Oral Tablet (Lasix)Indication [...] Active Sertraline HCl 25 MG Oral Tablet (Zoloft)Indicatio ns:Bipolar disorder in partial remission, most recent episode unspecified type (HCC),Current moderate episode of major depressive disorder without prior episode (HCC),Anxiety TAKE ONE TABLET BY MOUTH IN THE MORNING 90 Tablet 1 12/10/2023 Active Ascorbic Acid 1000 MG Oral Tablet Take 1 Tablet by mouth in the morning. 0 Active hydroCHLOROthiazi de 25 MG Oral Tablet (Hydrodiuril) 0 01/22/2024 Discontinue d Lisinopril 10 MG Oral Tablet (Prinivil) Take 1 Tablet by mouth in the morning. 0 01/22/2024 Discontinued QUEtiapine Fumarate 25 MG Oral Tablet (SEROquel) Take 1 Tablet by mouth daily. 0 01/22/2024 Discontinued OLANZapine 5 MG Oral Tablet (zyPREXA) Take 1 Tablet by mouth at bedtime. 0 01/22/2024 Discontinued documented as of this encounter (statuses as of 01/22/2024) Active Problems Problem Noted Date Diagnosed Date [...] as of this encounter (statuses as of 01/22/2024) Resolved Problems Problem Noted Date Diagnosed Date Resolved Date Hematuria 12/16/2016 07/17/2017 documented as of this encounter (statuses as of 01/22/2024) Immunizations Name Administration Dates Next Due COVID-19 [...] Sign Reading Time Taken Comments Blood Pressure 102/64 01/22/2024 3:35 PM EDT Pulse 78 01/22/2024 3:35 PM EDT Temperature 36.7 C (98 F) 01/22/2024 3:35 PM EDT Respiratory Rate 16 01/22/2024 3:35 PM EDT Oxygen Saturation 98% 01/22/2024 3:35 PM EDT Inhaled Oxygen Concentration - - Weight 60.7 kg (133 lb 12.8 oz) 01/22/2024 3:35 PM EDT Height 156.7 cm (5' 1.69") 01/22/2024 3:35 PM ED T Body Mass Index 24.72 01/22/2024 3:35 PM EDT documented in this encounter Patient Instructions * Patient Instructions* Gregoria Ingram LPN - 01/22/2024 3:35 PM EDT Patient Instructions - Fall Prevention (This education is for all patients over 65 regardless of symptoms) Remember to take your current medications as prescribed. In order to prevent falls, you are encouraged to: Exercise Utilize assistive/adaptive devices Avoid multifocal lenses when walking Avoid hazards in home Maintain a regular toileting schedule Any questions please contact our office. Preventing Falls in the Home (This education is for all patients over 65 regardless of symptoms) As you get older, falls are more likely. Thats because your reaction time slows. Your muscles and joints may also get stiffer, making them less flexible. Illness, medications, and vision changes can also affect your balance. A fall could leave you unable to live on your own. To make your home safer, follow these tips: Floors Put nonskid pads under area rugs Remove throw rugs Replace worn floor coverings Tack carpets firmly to each step on carpeted stairs. Put nonskid strips on the edges of uncarpeted stairs Keep floors and stairs free of clutter and cords Arrange furniture so there are clear pathways Clean up any spills right away Bathrooms Install grab bars in the tub or shower Apply nonskid strips or put a nonskid rubber mat in the tub or shower Sit on a bath chair to bathe Use bathmats with nonskid backing Lighting Keep a flashlight in each room Put a nightlight along the pathway between the bedroom and the bathroom Lonny Patient Education Copyright 2008 - 2010 Lonny except where otherwise noted Preventing Falls: Exercises to Improve Balance, Flexibility, Strength, and Staying Power (This education is for all patients over 65 regardless of symptoms) Certain types of exercises may help make you less likely to fall. Try the ones below. Or do other exercises that your healthcare provider suggests. Depending on your health, you may need to start slowly. Dont let that stop you. Even small amounts of exercise can help you. Be sure to talk to yourhealthcare provider before starting any exercise program. Improve Balance Many types of exercise can help improve balance. Jag chi and yoga are good examples. Heres another one to try. You can do it anytime and almost anywhere. Stand next to a counter or solid support. Push yourself up onto your tiptoes. Hold for 5 seconds. If you start to lose your balance, hold on to the counter. Rest and repeat 5 times. Work up to holding for 20 to 30 seconds, if you can. Increase Flexibility Being more flexible makes it easier for you to move around safely. Try exercises like the seated hamstring stretch. Sit in a chair and put one foot on a stool. Straighten your leg and reach with both hands down either side of your leg. Reach as far down your leg as you can. Hold for about 20 seconds. Go back to the starting position. Then repeat 5 times. Switch legs. Build Strength Resistance exercises help build strength. You can do them without equipment. Or you can use weights, elastic bands, or special machines. One such exercise is called the biceps curl. You can hold a 1 pound weight or even a can of soup. Do this exercise at least 3 times a week. Strive for everyday. Sit up straight in a chair. Keep your elbow close to your body and your wrist straight. Bend your arm, moving your hand up to your shoulder. Then slowly lower your arm. Repeat 5 times. Switch to the other arm. Build Your Staying Power Aerobic exercises make your heart and lungs stronger so you can keep moving longer. Walking and swimming are two of the best types of exercises you can do. Using a stationary bike is great, too. Find an aerobic exercise that you enjoy. Start slowly and build up. Even 5 minutes is helpful. Aimfor a goal of 30 minutes, at least 3 times a week. You dont have to do 30 minutes in one session. Break it up and walk a little throughout the day. More Helpful Tips Start easy. Slowly work up to doing more. Talk with your healthcare provider about the best exercises for you. Call senior centers or health clubs about exercise programs. If needed, have a family member watch you walk every so often to check your stability. Exercise with a friend. Choose an activity you both enjoy. Try exercises that you can do anytime, anywhere. Here are two examples. Have someone with you when you first try these: Practice walking by placing one foot right in front of the other. Stand up and sit down 10 times. Repeat this throughout the day. Lonny Patient Education Copyright 2008 - 2010 Lonny except where otherwise noted. Preventing Falls: Moving Safely Using a Cane or Walker (This education is for all patients over 65 regardless of symptoms) Keep the cane away from your feet so you dont trip. A walking aid, such as a cane or walker, can help you stay more independent and avoid falls. Remember to keep your walking aid within easy reach when youre in a chair or in bed. And learn how to use it safely so you dont injure yourself. Using a Cane If you have a stronger side, hold the cane on that side. Get your balance. Move the cane and your weaker leg forward. Support your weight on both the cane and your weaker side. Step with your stronger leg. Start again from step 1. If youre using a folding walker, be sure you know how to lock it open. Check that its locked open before each use. Using a Walker Roll the walker (or lift it, if youre using one without wheels) forward about 12 inches. Step forward with your weaker leg first. Use the walker to help keep your balance. Bring your other foot forward to the center of the walker. Start again from step 1. Helpful Tips Check with your healthcare provider about the right walking aid to use. Ask about a walker with a seat attached. Check the tips of your cane or walker to make sure they have nonskid covers. Move slowly from room to room. Dont lee. Sit down to get dressed. Use a marcela pack or backpack to keep your hands free. Get help for jobs that mean climbing, even on a stepstool. Lonny Patient Education Copyright 2008 - 2010 Lonny except where otherwise noted. Urinary Incontinence Plan of Care Documentation: (This education is for all patients over 65 regardless of symptoms) Current medications reconciled. Patient encouraged to: Practice kegal exercises Provide education materials Use the restroom every 2 hours throughout the day Limit caffeine, alcohol, spicy foods and acidic foods Keep a bladder diary Limit fluid intake 3-4 hours before bed Lose weight Prevent constipation Take fluid pills at a time when you can get to the bathroom quickly Control sugar better if diabetic Limit fluid intake to 60 oz. per day Wear support stockings (TEDs)if you have edema Gregoria Ingram LPN 01/22/2024 Kegel Exercises Kegel exercises dont require special clothing or equipment. Theyre easy to learn and simple to do. And if you do them right, no one can tell youre doing them, so they can be done almost anywhere. Your doctor, nurse, or physical therapist can answer any questions you have and help you get started. A Weak Pelvic Floor The pelvic floor muscles may weaken due to aging, and vaginal childbirth, injury, surgery, chronic cough, or lack of exercise. If the pelvic floor is weak, your bladder and other pelvic organs may sag out of place. The urethra may also open too easily and allow urine to leak out. Kegel exercises can help you strengthen your pelvic floor muscles so they can better support the pelvic organs and control urine flow. How Kegel Exercises Are Done Try each of the Kegel exercises described below. When youre doing them, try not to move your leg, buttock, or stomach muscles. While youre urinating, try to stop the flow of urine. Start and stop it as often as you can. Contract as if you were stopping your urine stream, but do it when youre not urinating. Tighten your rectum as if trying not to pass gas. Contract your anus, but dont move your buttocks. Helpful Hints Do your Kegels as often as you can. The more you do them, the faster youll feel the results. Pick an activity you do often as a reminder. For instance, do your Kegels every time you sit down. Tighten your pelvic floor before you sneeze, get up from a chair, cough, laugh, or lift. This protects your pelvic floor from injury and can help prevent urine leakage. Try to hold each Kegel for a slow count to five. You probably wont be able to hold them for thatlong at first, but keep practicing. It will get easier as your pelvic floor gets stronger. Eventually, special weights that you place in your vagina may be recommended to help make your Kegels even more effective. Lonny Patient Education Copyright 2008 - 2010 Lonny except where otherwise noted. Here are some helpful tips for your urinary incontinence: (This education is for all patients over 65 regardless of symptoms) Practice Kegel exercises Use the restroom every 2 hours throughout the day Limit caffeine, alcohol, spicy foods, and acidic foods Keep a bladder diary Limit fluid intake 3-4 hours before bed Lose weight Prevent constipation Take fluid pills at a time when can get to the bathroom quickly Control sugar better if diabetic Limit fluid intake to 60 oz. per day Any questions, please feel free to contact our office. documented in this encounter Progress Notes * Jb Marrufo MD - 01/22/2024 4:03 PM EDT Images from the original note were not included. History of Present Illness Tamiko Hagen is a 73 year old female that presents for Physical-Exam (Pt here for annual CPE. Pt here for swelling in her legs that is not getting better for the last year. Pt has and healing open area on her left leg that pt is still concerned about. Pt is very confused about her medications andnot really sure what she is taking ) Patient is here with her . She is concerned about her urination and a number of other things. She and readily admit that her memory has worsened over the past year. She is tearful in the room and also perseverates about multiple things included her meds, her urination, her potassium,going to the bathroom, sleeping at night, sodium in her diet. Patient and state that they had aid coming to the house (nurses) but that stopped sometime last year for reasons they cannot fully articulate (but that seems to be related to patient wanting to sleep rather than get up for treatment). Tamiko readily admits that she has not been taking her medication faithfully. She will frequently skip a dose of medication, multiple times a day. She would like some help with her swelling but also with Physical Exam BP 102/64 (BP Site: Left Arm, BP Position: Sitting, BP Cuff Size: Regular) | Pulse 78 | Temp 36.7 C (98 F) (Tympanic) | Resp 16 | Ht 1.567 m (5' 1.69") | Wt 60.7 kg (133 lb 12.8 oz) | SpO2 98% | BMI 24.72 kg/m | BSA 1.63 m AAOx2 Perseverating speech Labile and tearful affect NCAT/ PERRL - glasses Neck supple Throat clear RRR Lungs CTABL Ext warm and well perfused She has significant pitting edema to bilateral lower ext + varicosities, + peeling of skin No gross neuro deficits In wheelchair I have reviewed most recent labs None Assessment and Plan Bilateral lower extremity edema - significant. She will need combination of lymphedema/wrap therapy, salt avoidance, regular admin of her diuretics, and elevation. All will be a challenge. Lymphedema - see above Venous insufficiency - contributing to #1 Current moderate episode of major depressive disorder without prior episode (HCC) - cont regular sertraline but also needs consistency with her night time dose of depakote and her buspar. Hypertension goal BP (blood pressure) < 140/90 - perhaps too good. I cleaned up her med list - it had both an ACEi and ARB - stopped the lisinopril. Also took off HCTZ as her BP is already low and having issues with hypokalemia. Could potentiallyadd spironolactone for fluid control and mitigation of med-induced hypokalemia. Malignant melanoma of right upper extremity (HCC) - still has not completed her pembrolizumab treatment. She has a f/u PET-CT schedueld by Dr Quintero. She needs labs done beforehand. These were going to be done tomorrow at [facility] but I will reorderthem here and she can have them completed prior to leaving [facility] Bipolar affective disorder, remission status unspecified (HCC) - does not seem well-controlled but then again she's not taking her meds faithfully. It is also clear that there is a moderate at least component of dementia here. She will need help in the home and her does and will need help with handling her. I have asked case mgmt to help and will be ordering home nursing for med management and home safety assessment. Wrap-Up Follow Up: Return in about 6 weeks (around 03/04/2024) for Return with Physician Dr Waters for PCP follow up. | For: Return with Physician Dr Waters for PCP follow up Time: I spent a total of 40-54 minutes (exact time 45 mins) on the date of service in preparation, delivery, and documentation of the care provided to Tamiko Hagen excluding any time spent in the performance of separately billed services. * Gregoria Ingram LPN - 01/22/2024 3:35 PM EDT Urinary Incontinence Plan of Care Documentation: (This education is for all patients over 65 regardless of symptoms) Current medications reconciled. Patient encouraged to: Practice kegal exercises Provide education materials Use the restroom every 2 hours throughout the day Limit caffeine, alcohol, spicy foods and acidic foods Keep a bladder diary Limit fluid intake 3-4 hours before bed Lose weight Prevent constipation Take fluid pills at a time when you can get to the bathroom quickly Control sugar better if diabetic Limit fluid intake to 60 oz. per day Wear support stockings (TEDs)if you have edema Gregoria Ingram LPN 01/22/2024 documented in this encounter Plan of Treatment Upcoming Encounters Date Type Department Care Team (Late st Contact Info) Description 01/23/2024 1:00 PM EDT Laboratory Laboratory [address] [place] [phone] [place] [address] 02/03/2024 1:45 PM EDT Imaging Radiology [address] [place] [address] 02/06/2024 2:45 PM EDT Office Visit Hematology/Oncology [facility] [place] [address] [facility] [place] [phone] Walter Quintero MD [address] [facility] [place] [address] Pending Results Name Type Priority Associated Diagnoses Date /Time COMPREHENSIVE METABOLIC PANEL Lab Routine Hypertension goal BP (blood pressure) < 140/90 Malignant melanoma of right upper extremity (HCC) Malignant melanoma of upper extremity, unspecified laterality (HCC) 01/22/2024 4:49 PM EDT CBC WITH WBC DIFFERENTIAL AND ANEMIA REFLEX WORKUP Lab Routine Hypertension goal BP (blood pressure) < 140/90 Malignant melanoma of right upper extremity (HCC) Malignant melanoma of upper extremity, unspecified laterality (HCC) 01/22/2024 4:49 PM EDT TSH WITH FREE T4 IF INDICATED Lab Routine Lymphedema Essential (primary) hypertension 01/22/2024 4:49 PM EDT FOLIC ACID Lab Routine Malignant melanoma of right upper extremity (HCC) Malignant melanoma of upper extremity, unspecified laterality (HCC) Anemia due to vitamin B12 deficiency, unspecified B12 deficiency type 01/22/2024 4:49 PM EDT MAGNESIUM Lab Routine Malignant melanoma of right upper extremity (HCC) Malignant melanoma of upper extremity, unspecified laterality (HCC) 01/22/2024 4:49 PM EDT VITAMIN B12 Lab Routine Malignant melanoma of right upper extremity (HCC) Malignant melanoma of upper extremity, unspecified laterality (HCC) Anemia due to vitamin B12 deficiency, unspecified B12 deficiency type 01/22/2024 4:49 PM EDT RETICULOCYTE PANEL Lab Routine Malignant melanoma of right upper extremity (HCC) Malignant melanoma of upper extremity, unspecified laterality (HCC) 01/22/2024 4:49 PM EDT FERRITIN Lab Routine Malignant melanoma of right upper extremity (HCC) Malignant melanoma of upper extremity, unspecified laterality (HCC) 01/22/2024 4:49 PM EDT IRON SCREEN, INCLUDING TIBC Lab Routine Malignant melanoma of right upper extremity (HCC) Malignant melanoma of upper extremity, unspecified laterality (HCC) 01/22/2024 4:49 PM EDT ANEMIA CBC Lab Routine Hypertension goal BP (blood pressure) < 140/90 Malignant melanoma of right upper extremity (HCC) Malignant melanoma of upper extremity, unspecified laterality (HCC) 01/22/2024 4:49 PM EDT DIFFERENTIAL, AUTOMATED Lab Routine Hypertension goal BP (blood pressure) < 140/90 Malignant melanoma of right upper extremity (HCC) Malignant melanoma of upper extremity, unspecified laterality (HCC) 01/22/2024 4:49 PM EDT ANEMIA REFLEX CHEMISTRY HOLD Lab Routine Hypertension goal BP (blood pressure) < 140/90 Malignant melanoma of right upper extremity (HCC) Malignant melanoma of upper extremity, unspecified laterality (HCC) 01/22/2024 4:49 PM EDT Scheduled Orders Name Type Priority Associated Diagnoses Orde r Schedule COMPREHENSIVE METABOLIC PANEL Lab Routine Hypertension goal BP (blood pressure) < 140/90 Malignant melanoma of right upper extremity (HCC) Malignant melanoma of upper extremity, unspecified laterality (HCC) Expected: 01/22/2024 (Approximate), Expires: 01/21/2025 CBC WITH WBC DIFFERENTIAL AND ANEMIA REFLEX WORKUP Lab Routine Hypertension goal BP (blood pressure) < 140/90 Malignant melanoma of right upper extremity (HCC) Malignant melanoma of upper extremity, unspecified laterality (HCC) Expected: 01/29/2024 (Approximate), Expires: 01/21/2025 TSH WITH FREE T4 IF INDICATED Lab Routine Lymphedema Essential (primary) hypertension Expected: 01/22/2024 (Approximate), Expires: 01/21/2025 FOLIC ACID Lab Routine Malignant melanoma of right upper extremity (HCC) Malignant melanoma of upper extremity, unspecified laterality (HCC) Anemia due to vitamin B12 deficiency, unspecified B12 deficiency type Expected: 01/22/2024 (Approximate), Expires: 01/21/2025 MAGNESIUM Lab Routine Malignant melanoma of right upper extremity (HCC) Malignant melanoma of upper extremity, unspecified laterality (HCC) Expected: 01/22/2024 (Approximate), Expires: 01/21/2025 VITAMIN B12 Lab Routine Malignant melanoma of right upper extremity (HCC) Malignant melanoma of upper extremity, unspecified laterality (HCC) Anemia due to vitamin B12 deficiency, unspecified B12 deficiency type Expected: 01/22/2024 (Approximate), Expires: 01/21/2025 RETICULOCYTE PANEL Lab Routine Malignant melanoma of right upper extremity (HCC) Malignant melanoma of upper extremity, unspecified laterality (HCC) Expected: 01/22/2024 (Approximate), Expires: 01/21/2025 FERRITIN Lab Routine Malignant melanoma of right upper extremity (HCC) Malignant melanoma of upper extremity, unspecified laterality (HCC) Expected: 01/22/2024 (Approximate), Expires: 01/21/2025 IRON SCREEN, INCLUDING TIBC Lab Routine Malignant melanoma of right upper extremity (HCC) Malignant melanoma of upper extremity, unspecified laterality (HCC) Expected: 01/22/2024 (Approximate), Expires: 01/21/2025 Scheduled Referrals Name Type Priority Associated Diagnoses Orde r Schedule HOME HEALTH REFERRAL OP Referral Within 10 days (routine) Bilateral lower extremity edema Lymphedema Bipolar affective disorder, remission status unspecified (HCC) Moderate dementia with anxiety, unspecified dementia type (HCC) Ordered: 01/22/2024 Health Maintenance Due Date Last Done Comments Cologuard 1994 Fecal Occult Blood Test 1994 Sigmoidoscopy 1994 Zoster Vaccines (1 of 2) 1999 Colonoscopy 08/17/2023 08/17/2013 Colorectal Cancer Screening 08/17/2023 COVID-19 Vaccine ( season) 2023 08/26/2023, 11/13/2020, 10/16/2020 DXA Scan 12/27/2023 12/26/2016 Mammogram 06/06/2024 06/06/2023, 06/17, 07/10/2012 GFR 07/17/2024 07/17/2023, 06/16, 07/03/2023, Additional history exists Albumin/Creatinine Ratio 05/13/2025 05/13/2022 [...] as of this encounter Visit Diagnoses Diagnosis Bilateral lower extremity edema- Primary Edema Lymphedema Other lymphedema Venous insufficiency Unspecified venous (peripheral) insufficiency Current moderate episode of major depressive disorder without prior episode (HCC) Hypertension goal BP (blood pressure) < 140/90 Unspecified essential hypertension Risk and functional assessment Screening for unspecified condition Malignant melanoma of upper extremity, unspecified laterality (HCC) Bipolar affective disorder, remission status unspecified (HCC) Moderate dementia with anxiety, unspecified dementia type (HCC) Essential (primary) hypertension Unspecified essential hypertension Anemia due to vitamin B12 deficiency, unspecified B12 deficiency type documented in this encounter Additional Health Concerns Infection Onset Date Last Indicated Resolved Time Tuberculosis Rule-Out 02/21/2023 02/21/2023 documented as of this encounter Care Teams Coin Box Inspector Relationship Specialty Start Date End Date Janay Waters MD [address] [place] [address] [place] [address] PCP - General Family Medicine 05/02/22 documented as of this encounter
--- OUTSIDE RECORDS SUMMARY | 2024-04-28 21:09 | External Medical Summary ---
Author Name Unknown Address Unknown Organization K01:[place] [facility] [place] [address] [place] [address] Laboratory Report Ordering Provider Test Date Status NILSON SOMMER 01/22/2024 16:49:59 Final Observation Date Value Abnormality Reference (Units ) Status Ferritin 01/22/2024 16:49:59 66 13-150 (ng /mL) Final Postmenopausal women have hi gher ferritin levels than pre-menopausal women. The above reference interval is based on pre-menopausal women. Performing Location [facility] - [address] [place] [id number]
--- OUTSIDE RECORDS SUMMARY | 2024-04-28 21:09 | External Medical Summary | Summary of Care ---
Author Name Unknown Organization [facility] Address [address] [facility] [place] [address] Phone [phone] Care Team Providers Care Denitrator Name Role Phone Janay Waters MD Primary Care Provide r Reason for Visit * Reason Comments eRx-Medication Refill Encounter Details Date Type Department Care Team (Late st Contact Info) Description 12/09/2023 Refill Family Medicine [address] [phone] Janay Waters MD [address] [place] [address] [place] [address] Bipolar disorder in partial remission, most recent episode unspecified type (HCC); Current moderate episode of major depressive disorder without prior episode (HCC); Anxiety Allergies Active Allergy Reactions Criticality Noted Date Comments Azithromycin Nausea/vomiting High 09/03/2017 Codeine 12/16/2016 documented as of this encounter (statuses as of 12/10/2023) Medications Medication Sig Dispensed Refills Start Date [...] the morning. 90 Tablet 3 06/06/2023 Active hydroCHLOROthiazi de 25 MG Oral Tablet (Hydrodiuril) 0 Active Losartan Potassium 50 MG Oral Tablet [...] THE MORNING 90 Tablet 1 12/10/2023 Active Sertraline HCl 25 MG Oral Tablet (Zoloft)Indicatio ns:Bipolar disorder in partial remission, most recent episode unspecified type (HCC),Current moderate episode of major depressive disorder without prior episode (HCC),Anxiety TAKE 1 TABLET BY MOUTH EVERY MORNING 30 Tablet 0 11/16/2023 12/10/2023 Discontinued documented as of this encounter (statuses as of 12/10/2023) Active Problems Problem Noted Date Diagnosed Date [...] as of this encounter (statuses as of 12/10/2023) Resolved Problems Problem Noted Date Diagnosed Date Resolved Date Hematuria 12/16/2016 07/17/2017 documented as of this encounter (statuses as of 12/10/2023) Immunizations Name Administration Dates Next Due COVID-19 mRNA, LNP-s, No Pre serve, 2-Dose Series (Zoombu) 11/13/2020,10/16/2020 Pneumococcal Conjugate Vacc, 13 Valent (Prevnar) 01/23/2017 Pneumococcal Polysaccharide PPV23 (Pneumovax) Seasonal Influenza, Quadrivalent Hd (Fluzone Hd) 06/04/2023 Seasonal Influenza, Quadrivalent Hd, 65+ Yrs Seasonal Influenza, Split, IIV3, With Preserve, Inj 06/16/2017 TDAP (age 10 and older)(Boostrix) 03/15/2018 documented as of this encounter Social History Tobacco Use Types Packs/Day Years Used Date Smoking Tobacco: Never Smokeless Tobacco: Never Alcohol Use Standard Drinks/Week Comments No 0 (1 standard drink = 0.6 oz pur e alcohol) Sex and Gender Information Value Date Recorded Sex Assigned at Not on file Gender Identity Not on file Sexual Orientation Not on file Job Start Date Occupation Industry Not on file Not on file Not on file documented as of this encounter Miscellaneous Notes * Telephone Encounter - Irving Cannon [facility] - 12/10/2023 1:49 PM EDTSigned Prescriptions: Disp Refills Sertraline HCl 25 MG Oral Tablet (Zoloft) 90 Tab*1 Sig: TAKE ONETABLET BY MOUTH IN THE MORNINGAuthorizing Provider: José WATERS User: IRVING CANNON documented in this encounter Plan of Treatment Upcoming Encounters Date Type Department Care Team (Late st Contact Info) Description 01/23/2024 1:00 PM EDT Laboratory Laboratory [address] [place] [phone] [place] [address] 02/03/2024 1:45 PM EDT Imaging Radiology [address] 132 [facility] [place] [address] 02/06/2024 2:45 PM EDT Office Visit Hematology/Oncology [facility] 200 [facility] [place] [phone] Walter Quintero MD 200 [facility] [place] [address] Health Maintenance Due Date Last Done Comments Cologuard 1994 Fecal Occult Blood Test 1994 Sigmoidoscopy 1994 Zoster Vaccines (1 of 2) 1999 Depression Screening 06/03/2018 06/03/2017 COVID-19 Vaccine ( season) 2023 11/13/2020, 10/16/2020 Colonoscopy 08/17/2023 08/17/2013 Colorectal Cancer Screening 08/17/2023 DXA Scan 12/27/2023 12/26/2016 Mammogram 06/06/2024 06/06/2023, 06/17, 07/10/2012 GFR 07/17/2024 07/17/2023, 06/16, 07/03/2023, Additional history exists Albumin/Creatinine Ratio 05/13/2025 05/13/2022 Lipid Panel 04/17/2027 04/17/2022, 11/10/2016, 04/11/2016 DTaP,Tdap,and Td Vaccines (2 - Td or Tdap) 03/15/2028 03/15/2018 Pneumococcal Vaccine: 65+ Years Completed 05/12/2018, 01/23/2017, [...] as of this encounter Visit Diagnoses Diagnosis Bipolar disorder in partial remission, most recent episode unspecified type (HCC) Current moderate episode of major depressive disorder without prior episode (HCC) Anxiety Anxiety state, unspecified documented in this encounter Additional Health Concerns Infection Onset Date Last Indicated Resolved Time Tuberculosis Rule-Out 02/21/2023 02/21/2023 documented as of this encounter Care Teams Denitrator Relationship Specialty Start Date End Date Janay Waters MD [address] [place] [address] [place] [address] PCP - General Family Medicine 05/02/22 documented as of this encounter
--- OUTSIDE RECORDS SUMMARY | 2024-04-28 21:09 | External Medical Summary | Summary of Care ---
Author Name Unknown Organization [facility] Address [address] [facility] [place] [address] Phone [phone] Care Team Providers Care Grappler Name Role Phone Janay Waters MD Primary Care Provide r Reason for Visit * Reason Onset Date Comments Advice 11/13/2023 Can the PCP, Janay Sullivan MD see if he can get her a leather case finisher. She stated that she keeps on messing herself with BM and she can not go out anywhere. She stated that she doesn't have any body but her spouse and he does help her but it is hard on him. Encounter Details Date Type Department Care Team (Late st Contact Info) Description 11/13/2023 Telephone Family Medicine [address] [place] [phone] Janay Waters MD [address] [place] [address] [place] [phone] Advice (Can the PCP, Lloyd Waters... Allergies Active Allergy Reactions Criticality Noted Date Comments Azithromycin Nausea/vomiting High 09/03/2017 Codeine 12/16/2016 documented as of this encounter (statuses as of 11/18/2023) Medications Medication Sig Dispensed Refills Start Date [...] the morning. 90 Tablet 3 06/06/2023 Active hydroCHLOROthiazide 25 MG Oral Tablet (Hydrodiuril) 0 Active Cholestyramine 4 GM Oral Packet (Questran) Take 1 Packet by mouth in the morning and 1 Packet before bedtime. mixed with liquid.. 180 Packet 1 08/27/2023 Active Losartan Potassium 50 MG Oral Tablet (Cozaar) TAKE 1 TABLET BY MOUTH EVERY MORNING 90 Tablet 2 09/18/2023 Active documented as of this encounter (statuses as of 11/18/2023) Active Problems Problem Noted Date Diagnosed Date [...] as of this encounter (statuses as of 11/18/2023) Resolved Problems Problem Noted Date Diagnosed Date Resolved Date Hematuria 12/16/2016 07/17/2017 documented as of this encounter (statuses as of 11/18/2023) Immunizations Name Administration Dates Next Due COVID-19 mRNA, LNP-s, No Pre serve, 2-Dose Series (Xtone) 11/13/2020,10/16/2020 Pneumococcal Conjugate Vacc, 13 Valent (Prevnar) [...] Telephone Encounter - Jamila Ervin RN - 11/18/2023 2:10 PM EST I called and told the patient to contact her to see if they offer case briefer. Pt also cancelled her appt with Dr Waters and did not reschedule, she said Dr vila is her doctor now. I told her he is HEM/ONC, not her primary care, I tried to reschedule her, but she said not at this time, she * Telephone Encounter - Jamila Ervin RN - 11/13/2023 3:17 PM EST Our Administrative Resident can not see patient with Medicare, she could call her [employer] insurance to see if they offer them * Telephone Encounter - Parth Judd OSA - 11/13/2023 2:55 PM EST Can the PCP, Janay Waters MD see if he can get her a leather case finisher. She stated that she keeps on messing herself with BM and she can not go out anywhere. She stated that she doesn't have any body but her spouse and he does help her but it is hard on him. She stated that she doesn't think he can go on helping him. She stated that she did have a case work before but at that time she didn't have this issue with uncontrolled [place]. Please advise. documented in this encounter Plan of Treatment Upcoming Encounters Date Type Department Care Team (Late st Contact Info) Description 01/23/2024 1:00 PM EDT Laboratory Laboratory [address] [place] [phone] [address] [place] [address] 02/03/2024 1:45 PM EDT Imaging Radiology [facility] 1st [facility] 132 [facility] [place] [address] 02/06/2024 2:45 PM EDT Office Visit Hematology/Oncology [facility] [address] [place] [phone] Walter Vila MD [address] [place] [address] [address] Health Maintenance Due Date Last Done Comments Cologuard 1994 Fecal Occult Blood Test 1994 Sigmoidoscopy 1994 Zoster Vaccines (1 of 2) 1999 Depression Screening 06/03/2018 06/03/2017 COVID-19 Vaccine (3 - season) 2023 11/13/2020, 10/16/2020 Colonoscopy 08/17/2023 08/17/2013 Colorectal Cancer Screening 08/17/2023 DXA Scan 12/27/2023 12/26/2016 Mammogram 06/06/2024 06/06/2023, 06/17, 07/10/2012 GFR 07/17/2024 07/17/2023, 06/16, 07/03/2023, Additional history exists Albumin/Creatinine Ratio 05/13/2025 05/13/2022 Lipid Panel 04/17/2027 04/17/2022, 11/0 10/2016, 04/11/2016 DTaP,Tdap,and Td Vaccines (2 - Td [...] documented as of this encounter Care Teams Grappler Relationship Specialty Start Date End Date Janay Waters MD [address] [place] [address] [place] [address] PCP - General Family Medicine 05/02/22 documented as of this encounter
--- OUTSIDE RECORDS SUMMARY | 2024-04-28 21:09 | External Medical Summary | Summary of Care ---
Author Name Unknown Organization [facility] Address [address] [facility] [place] [address] Phone [phone] Care Team Providers Care School Athletic Director Name Role Phone Janay Waters MD Primary Care Provide r Reason for Visit * Reason Onset Date Comments Med Request 11/13/2023 Encounter Details Date Type Department Care Team (Late st Contact Info) Description 11/13/2023 Telephone Family Medicine [address] [phone] Janay Waters MD [address] [place] [address] [place] [address] Med Request Allergies Active Allergy Reactions Criticality Noted Date Comments Azithromycin Nausea/vomiting High 09/03/2017 Codeine 12/16/2016 documented as of this encounter (statuses as of 11/14/2023) Medications Medication Sig Dispensed Refills Start Date [...] 08/02/2022 Active Naproxen 500 MG Oral Tablet (Naprosyn)Indicati ons:Arthralgia of left wrist Take 1 Tablet by mouth 2 times a day with morning and evening meals. 20 Tablet 0 09/12/2022 Active Furosemide 20 MG Oral Tablet (Lasix)Indications [...] the morning. 90 Tablet 3 06/06/2023 Active hydroCHLOROthiazid e 25 MG Oral Tablet (Hydrodiuril) 0 Active Sertraline HCl 25 MG Oral Tablet (Zoloft)Indication s:Bipolar disorder in partial remission, most recent episode unspecified type (HCC),Current moderate episode of major depressive disorder without prior episode (HCC),Anxiety Take 2 Tablets by mouth in the morning. Psych gives Meds. 0 07/29/2023 Active Cholestyramine 4 GM Oral Packet (Questran) Take 1 Packet by mouth in the morning and 1 Packet before bedtime. mixed with liquid.. 180 Packet 1 08/27/2023 Active Losartan Potassium 50 MG Oral Tablet (Cozaar) TAKE 1 TABLET BY MOUTH EVERY MORNING 90 Tablet 2 09/18/2023 Active Potassium Chloride Bret ER 10 MEQ Oral Tablet Extended ReleaseIndications :Hypokalemia Take 2 Tablets by mouth in the morning. 60 Tablet 2 11/14/2023 Active Potassium Chloride Bret ER 10 MEQ Oral Tablet Extended ReleaseIndications :Hypokalemia Take 2 Tablets by mouth in the morning. 60 Tablet 2 07/24/2023 11/13/2023 Discontinued (Refill) documented as of this encounter (statuses as of 11/14/2023) Active Problems Problem Noted Date Diagnosed Date [...] as of this encounter (statuses as of 11/14/2023) Resolved Problems Problem Noted Date Diagnosed Date Resolved Date Hematuria 12/16/2016 07/17/2017 documented as of this encounter (statuses as of 11/14/2023) Immunizations Name Administration Dates Next Due COVID-19 [...] Telephone Encounter - Janay Waters MD - 11/14/2023 9:05 AM EST Med signed * Telephone Encounter - Prudencio White LPN - 11/13/2023 2:52 PM EST Pending Prescriptions: Disp Refills Potassium Chloride Bret ER 10 MEQ Oral Ta*60 Tab*2 Sig: Take 2 Tablets by mouth in the morning. 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 Venous insufficiency I87.2 Urinary incontinence R32 Bilateral leg edema R60.0 Aortic valve sclerosis I35.8 Hx of melanoma of skin Z85.820 Malignant melanoma of right upper extremity (HCC) C43.61 Current moderate episode of major depressive disorder without prior episode (HCC) F32.1 Anxiety F41.9 Right middle lobe pulmonary nodule R91.1 Lymphedema due to chronic inflammation I89.0 Diarrhea R19.7 Hypokalemia E87.6 Labs: Lab Results Component Value Date/Time CREATININE - [facility] 0.9 07/17/2023 01:39 PM CREATININE - [facility] 0.8 07/17/2017 03:31 PM CREATININE, RANDOM URINE - [facility] 63 05/13/2022 05:11 PM CREATININE, RANDOM URINE - [facility] 104 07/17/2017 03:31 PM CREATININE-OUTSIDE LAB 0.7 04/11/2016 12:00 AM Lab Results Component Value Date/Time POTASSIUM - [facility] 4.8 07/17/2023 01:39 PM POTASSIUM - [facility] 4.0 07/17/2017 03:31 PM POTASSIUM-OUTSIDE LAB 3.8 04/11/2016 12:00 AM Lab Results Component Value Date/Time TSH - [facility] 2.68 07/17/2023 01:39 PM Lab Results Component Value Date/Time LDL (CALCULATED)-OUTSIDE LAB 106 (H) 04/11/2016 12:00 AM LDL CHOLESTEROL (CALCULATED) - [facility] 85 04/17/2022 04:04 PM LDL CHOLESTEROL (CALCULATED) - [facility] 97 07/17/2017 03:31 PM LDL CHOLESTEROL (DIRECT MEASURE) - [facility] NOT APPLICABLE 07/17/2017 03:31 PM Lab Results Component Value Date/Time ALT - [facility] <5 (L) 07/17/2023 01:39 PM ALT - [facility] 11 07/17/2017 03:31 PM ALT-OUTSIDE LAB 16 04/11/2016 12:00 AM Hemoglobin AIC Results: No results found for: "HEMOGLOBIN A1C" * Telephone Encounter - Kerwin Sierra OSA - 11/13/2023 2:39 PM EST Potassium chloride bret ER 10 MEQ, needs reordered. Pt is out of medication completely tomorrow. documented in this encounter Plan of Treatment Upcoming Encounters Date Type Department Care Team (Late st Contact Info) Description 01/23/2024 1:00 PM EDT Laboratory Laboratory [address] [place] [phone] [place] [address] 02/03/2024 1:45 PM EDT Imaging Radiology [address] 132 [facility] [place] [address] 02/06/2024 2:45 PM EDT Office Visit Hematology/Oncology [facility] 200 [facility] [place] [phone] Walter Quintero MD 200 [facility] [place] [address] Health Maintenance Due Date Last Done Comments [...] 04/17/2027 04/17/2022, 1110/2016, 04/11/2016 DTaP,Tdap,and Td Vaccines (2 - Td [...] documented as of this encounter Care Teams School Athletic Director Relationship Specialty Start Date End Date Janay Waters MD [address] [place] [address] [place] [phone] PCP - General Family Medicine 05/02/22 documented as of this encounter
--- OUTSIDE RECORDS SUMMARY | 2024-04-28 21:09 | External Medical Summary | Summary of Care ---
Author Name Unknown Organization [facility] Address [address] [facility] [place] [address] Phone [phone] Care Team Providers Care Gear Generator Set Up Operator Name Role Phone Janay Waters MD [...] (HCC) Jb Marrufo MD [address] [place] [address] Referral ID Status Reason Start Date Expiration Date Visits Requested Visits Authorized [id number] Authorized Specialty Services Required 01/22/[phone] Question Answer Referral Priority Within 10 days (routine) Where should this appointment be scheduled? Tony Comments Documentation of [id number] Encounter Addendum Patient Name: Tamiko Hagen I certify that this patient is under my care and that I, or a nurse practitioner or physician's restaurant assistant working with me, had a [id number] encounter that meets the physician [id number] encounter requirements with this patient on: 01/22/2024. [...] complete this section): med management and pill town planner, gait assessment, home safety Primary Care [...] effort and are for medical reasons or rastafari services or infrequently or of short duration [...] 3:20 PM EDT Office Visit Family Practice [facility] [address] [place] [address] Jb Marrufo MD [address] [place] [address] Bilateral lower extremity edema*; Lymphedema; Venous insufficiency; [...] were going to be done tomorrow at [facility] but I will reorderthem here and she can have them completed prior to leaving [facility] Bipolar affective disorder, remission status unspecified (HCC) [...] Description 01/23/2024 1:00 PM EDT Laboratory Laboratory [address] [place] [phone] [place] [address] 02/03/2024 1:45 PM EDT Imaging Radiology [address] [place] [address] 02/06/2024 2:45 PM EDT Office Visit Hematology/Oncology [facility] [place] 200 [facility] [place] [phone] Walter Quintero MD 200 [facility] [place] [address] Pending Results Name Type Priority Associated Diagnoses [...] documented as of this encounter Care Teams Gear Generator Set Up Operator Relationship Specialty Start Date End Date Janay Waters MD [address] [place] [address] [place] [address] PCP - General Family Medicine 05/02/22 documented as of this encounter
--- OUTSIDE RECORDS SUMMARY | 2024-04-28 21:09 | External Medical Summary ---
Author Name Unknown Address Unknown Organization K01[place] [facility] [place] [address] [place] [address] Laboratory Report Ordering Provider Test Date Status NILSON SOMMER 01/22/2024 16:49:59 Final Observation Date Value Abnormality Reference (Units ) Status TSH 01/22/2024 16:49:59 1.62 0.27-4.20 (uIU/mL) Final Performing Location [facility] - [address] [place] [id number]
--- OUTSIDE RECORDS SUMMARY | 2024-04-28 21:09 | External Medical Summary ---
Author Name Unknown Address Unknown Organization K01:[facility]ATORY [facility] [place] [address] [place] [address] Laboratory Report Ordering Provider Test Date Status NILSON SOMMER 01/22/2024 16:49:59 Final Observation Date Value Abnormality Reference (Units ) Status TSH 01/22/2024 16:49:59 1.57 0.27-4.20 (uIU/mL) Final Performing Location [facility]ORY [facility] [place] [address] [place] [address]
--- OUTSIDE RECORDS SUMMARY | 2024-04-28 21:09 | External Medical Summary ---
Author Name Unknown Address Unknown Organization K01[place] [facility] [place] 100 [facility] [address] Laboratory Report Ordering Provider Test Date Status NILSON SOMMER 01/22/2024 16:49:59 Final Observation Date Value Abnormality Reference (Units ) Status SYNC LEUKOCYTES IN BLOOD BY AUTOMATED COUNT 01/22/2024 16:49:59 6.77 4.00-10.80 (K/uL) Final Segs 01/22/2024 16:49:59 61.8 40.0-75.0 (%) Final Lymphs % 01/22/2024 16:49:59 21.7 18.0-42.0 (%) Final Monos 01/22/2024 16:49:59 14.0 Above high normal 1.0-11.0 (%) Final Eosinophils 01/22/2024 16:49:59 1.5 0.0-6.0 (%) Final Basos 01/22/2024 16:49:59 0.7 0.0-2.0 (%) Final Immature Granulocyte, Percent 01/22/2024 16:49:59 0.3 0.0-2.0 (%) Final Absolute Segs 01/22/2024 16:49:59 4.18 1.80-7.70 (K/uL) Final Lymphs, absolute 01/22/2024 16:49:59 1.47 1.00-4.80 (K/ul) Final Monos, Abs 01/22/2024 16:49:59 0.95 0.00-1.10 (K/uL) Final Eos, Abs 01/22/2024 16:49:59 0.10 0.00-0.70 (K/uL) Final Basos, Abs 01/22/2024 16:49:59 0.05 0.00-0.20 (K/uL) Final Immature Granulocytes, Number 01/22/2024 16:49:59 0.02 0.00-0.20 (K/uL) Final Performing Location [facility] [place] [address] [place] [facility] [address]
--- OUTSIDE RECORDS SUMMARY | 2024-04-28 21:09 | External Medical Summary | Summary of Care ---
Author Name Unknown Organization [facility] Address [address] [facility] [place] [address] Phone [phone] Care Team Providers Care Animal Caretaker Supervisor Name Role Phone Janay Waters MD Primary Care Provide r Reason for Visit * Reason Comments eRx-Medication Refill Encounter Details Date Type Department Care Team (Late st Contact Info) Description 11/24/2023 Refill Gastroenterology [address] [place] [address] Lubna Briones CRNP [address] [place] [address] Allergies Active Allergy Reactions Criticality Noted Date Comments Azithromycin Nausea/vomiting High 09/03/2017 Codeine 12/16/2016 documented as of this encounter (statuses as of 11/24/2023) Medications Medication Sig Dispensed Refills Start Date [...] the morning. 60 Tablet 2 11/14/2023 Active Sertraline HCl 25 MG Oral Tablet (Zoloft)Indicatio ns:Bipolar disorder in partial remission, most recent episode unspecified type (HCC),Current moderate episode of major depressive disorder without prior episode (HCC),Anxiety TAKE 1 TABLET BY MOUTH EVERY MORNING 30 Tablet 0 11/16/2023 Active Cholestyramine 4 GM Oral Packet (Questran) Take 1 Packet by mouth in the morning and 1 Packet before bedtime. mixed with liquid.. 180 Packet 1 11/24/2023 Active Cholestyramine 4 GM Oral Packet (Questran) Take 1 Packet by mouth in the morning and 1 Packet before bedtime. mixed with liquid.. 180 Packet 1 08/27/2023 11/24/2023 Discontinued documented as of this encounter (statuses as of 11/24/2023) Active Problems Problem Noted Date Diagnosed Date [...] as of this encounter (statuses as of 11/24/2023) Resolved Problems Problem Noted Date Diagnosed Date Resolved Date Hematuria 12/16/2016 07/17/2017 documented as of this encounter (statuses as of 11/24/2023) Immunizations Name Administration Dates Next Due COVID-19 mRNA, LNP-s, No Pre serve, 2-Dose Series (Rollbase (acquired by [employer])) 11/13/2020,10/16/2020 Pneumococcal Conjugate Vacc, 13 Valent (Prevnar) [...] encounter Miscellaneous Notes * Telephone Encounter - Maria Isabel Forde [facility] - 11/24/2023 10:43 AM EDT Signed Prescriptions: Disp Refills Cholestyramine 4 GM Oral Packet (Questran) 180 Pa*1 Sig: Take 1 Packet by mouth in the morning and 1 Packet before bedtime. mixed with liquid..Authorizing Provider:LUBNA BRIONES User: MARIA ISABEL FORDE Electronically signed by Maria Isabel Forde [facility] at 11/24/2023 10:43 AM EDT documented in this encounter Plan of Treatment Upcoming Encounters Date Type Department Care Team (Late st Contact Info) Description 01/23/2024 1:00 PM EDT Laboratory Laboratory [address] [place] [phone] [address] [place] [address] 02/03/2024 1:45 PM EDT Imaging Radiology [address] 132 [facility] [place] [address] 02/06/2024 2:45 PM EDT Office Visit Hematology/Oncology [facility] 200 [facility] [place] [phone] Walter Quintero MD 200 [facility] [place] [address] Health Maintenance Due Date Last Done Comments [...] 04/17/2027 04/17/2022, 10/2016, 04/11/2016 DTaP,Tdap,and Td Vaccines (2 - [...] documented as of this encounter Care Teams Animal Caretaker Supervisor Relationship Specialty Start Date End Date Janay Waters MD [address] [place] [address] [place] [phone] PCP - General Family Medicine 05/02/22 documented as of this encounter
--- OUTSIDE RECORDS SUMMARY | 2024-04-28 21:09 | External Medical Summary | Summary of Care ---
Author Name Unknown Organization [facility] Address [address] [facility] [place] [address] Phone [phone] Care Team Providers Care Store Standards Associate Name Role Phone Janay Waters MD Primary Care Provide r Reason for Visit * Reason Comments eRx-Medication Refill Encounter Details Date Type Department Care Team (Late st Contact Info) Description 11/15/2023 Refill Family Medicine [address] [phone] Janay Waters MD [address] [place] [address] [place] [address] Bipolar disorder in partial remission, most recent episode unspecified type (HCC); Current moderate episode of major depressive disorder without prior episode (HCC); Anxiety Allergies Active Allergy Reactions Criticality Noted Date Comments Azithromycin Nausea/vomiting High 09/03/2017 Codeine 12/16/2016 documented as of this encounter (statuses as of 11/16/2023) Medications Medication Sig Dispensed Refills Start Date [...] EVERY MORNING 30 Tablet 0 11/16/2023 Active Sertraline HCl 25 MG Oral Tablet (Zoloft)Indicatio ns:Bipolar disorder in partial remission, most recent episode unspecified type (HCC),Current moderate episode of major depressive disorder without prior episode (HCC),Anxiety Take 2 Tablets by mouth in the morning. Psych gives Meds. 0 07/29/2023 11/16/2023 Discontinued documented as of this encounter (statuses as of 11/16/2023) Active Problems Problem Noted Date Diagnosed Date [...] of at least 4.0 mm, at least Lusi's level IV, 3 mitoses (R forearm 06/06) Aortic valve sclerosis 04/19/2022 Bilateral leg edema 04/17/2022 Urinary incontinence 03/31/2018 Venous insufficiency 07/17/2017 Varicose vein of leg 12/16/2016 Hypertension goal BP (blood pressure) < 140/90 Bipolar disorder Renal cyst documented as of this encounter (statuses as of 11/16/2023) Resolved Problems Problem Noted Date Diagnosed Date Resolved Date Hematuria 12/16/2016 07/17/2017 documented as of this encounter (statuses as of 11/16/2023) Immunizations Name Administration Dates Next Due COVID-19 mRNA, LNP-s, No Pre serve, 2-Dose Series (Innoz) 11/13/2020,10/16/2020 Pneumococcal Conjugate Vacc, 13 Valent (Prevnar) [...] encounter Miscellaneous Notes * Telephone Encounter - Keshawn Caballero, [facility] - 11/16/2023 2:22 PM EST Signed Prescriptions: Disp Refills Sertraline HCl 25 MG Oral Tablet (Zoloft) 30 Tab*0 Sig: TAKE 1 TABLET BY MOUTH EVERY MORNINGAuthorizing Provider: José WATERS User: KESHAWN CABALLERO Electronically signed by Keshawn Caballero [facility] at 11/16/2023 2:22 PM EST documented in this encounter Plan of Treatment Upcoming Encounters Date Type Department Care Team (Late st Contact Info) Description 01/23/2024 1:00 PM EDT Laboratory Laboratory [address] [place] [phone] [address] [place] [address] 02/03/2024 1:45 PM EDT Imaging Radiology [facility] 132 [facility] [place] [address] 02/06/2024 2:45 PM EDT Office Visit Hematology/Oncology [facility] 200 [facility] [place] [phone] Walter Quintero MD 200 [facility] [place] [address] Health Maintenance Due Date Last Done Comments Cologuard 1994 Fecal Occult Blood Test 1994 Sigmoidoscopy 1994 Zoster Vaccines (1 of 2) 1999 Depression Screening 06/03/2018 06/03/2017 COVID-19 Vaccine (2022- season) 2023 11/13/2020, 10/16/2020 Colonoscopy 08/17/2023 08/17/2013 [...] documented as of this encounter Care Teams Store Standards Associate Relationship Specialty Start Date End Date Janay Waters MD [address] [place] [address] [place] [address] PCP - General Family Medicine 05/02/22 documented as of this encounter
--- OUTSIDE RECORDS SUMMARY | 2024-04-28 21:09 | External Medical Summary ---
Author Name Unknown Address Unknown Organization K01:LABORATORY [facility] - [address] [place] [address] Laboratory Report Ordering Provider Test Date Status NILSON SOMMER 01/22/2024 16:49:59 Final Observation Date Value Abnormality Reference (Units ) Status Iron 01/22/2024 16:49:59 29 Below low normal 33-151 (ug/dL) Final Iron-binding capacity 01/22/2024 16:49:59 339 250-425 (ug/dL) Final Transferrin Sat % 01/22/2024 16:49:59 9 Below low normal 15-55 (%) Final Performing Location LABORATORY [facility] - [address] [place] [address]
--- OUTSIDE RECORDS SUMMARY | 2024-04-28 21:09 | External Medical Summary ---
Author Name Unknown Address Unknown Organization [id number]:LABORATORY [facility] - [facility] [place] [address] Laboratory Report Ordering Provider Test Date Status NILSON SOMMER 01/22/2024 16:49:59 Final Observation Date Value Abnormality Reference (Units ) Status WBC, Total 01/22/2024 16:49:59 6.77 4.00-10.8 0 (K/uL) Final RBC 01/22/2024 16:49:59 3.29 3.85-5.15 (M/uL) Final Hemoglobin 01/22/2024 16:49:59 9.9 Below low normal 12 .0-15.3 (g/dL) Final Anemia reflex testing trigge rs on a HGB < 12.0 for Females and HGB < 13.0 for Males in accordance with the WHO Anemia Guidelines
Anemia reflex testing triggers on a HGB < 12.0 for Females and HGB < 13.0 for Males in accordance with the WHO Anemia Guidelines HCT 01/22/2024 16:49:59 32.3 Below low normal 36. 0-45.2 (%) Final MCV 01/22/2024 16:49:59 98.2 81.5-97.5 (fL) Final MCH 01/22/2024 16:49:59 30.1 27.0-34.0 (pg) Final MCHC 01/22/2024 16:49:59 30.7 32.0-36.0 (g/dL) Final RDW 01/22/2024 16:49:59 14.6 11.5-15.5 (%) Final Platelets 01/22/2024 16:49:59 278 140-400 (K /uL) Final MPV 01/22/2024 16:49:59 10.1 6.6-11.1 ( fL) Final Nucleated erythrocytes/100 leukocytes [Ratio] in Blood by Automated count 01/22/2024 16:49:59 0 <=0 (/100 WBCs) Final Performing Location LABORATORY [facility] - [address] [facility] [address]
--- OUTSIDE RECORDS SUMMARY | 2024-04-28 21:09 | External Medical Summary ---
Author Name Unknown Address Unknown Organization K01:LABORATORY [facility] - [facility] [place] [address] Laboratory Report Ordering Provider Test Date Status NILSON SOMMER 01/22/2024 16:49:59 Final Observation Date Value Abnormality Reference (Units ) Status Retic, % (auto) 01/22/2024 16:49:59 1.57 0.80-1.90 (%) Final Reticulocytes, Absolute 01/22/2024 16:49:59 51.7 31.3-100.1 (K/uL) Final Reticulocyte fraction, immature 01/22/2024 16:49:59 14.9 2.5-20.6 (%) Final Reticulocyte HGB 01/22/2024 16:49:59 32.1 29.7-37.4 (pg) Final Performing Location LABORATORY [facility] - [address] [place] [address]
--- OUTSIDE RECORDS SUMMARY | 2024-04-28 21:09 | External Medical Summary ---
Author Name Unknown Address Unknown Organization K01:LABORATORY [facility] - [address] [place] [address] Laboratory Report Ordering Provider Test Date Status NLISON SOMMER 01/22/2024 16:49:59 Final Observation Date Value Abnormality Reference (Units ) Status Vitamin B12 01/22/2024 16:49:59 108 445-9382 (pg/mL) Final Performing Location LABORATORY [facility] - [address] [place] [address]
--- OUTSIDE RECORDS SUMMARY | 2024-04-28 21:09 | External Medical Summary ---
Author Name Unknown Address Unknown Organization K01:LABORATORY [facility] - [address] [place] [address] Laboratory Report Ordering Provider Test Date Status NILSON SOMMER 01/22/2024 16:49:59 Final Observation Date Value Abnormality Reference (Units ) Status Magnesium 01/22/2024 16:49:59 2.1 1.5-2.6 (m g/dL) Final Performing Location LABORATORY [facility] - [address] [place] [address]
--- OUTSIDE RECORDS SUMMARY | 2024-04-28 21:09 | External Medical Summary | Summary of Care ---
Author Name Unknown Organization [facility] Address [address] [facility] [place] [address] Phone [phone] Care Team Providers Care Chicle Grinder Feeder Name Role Phone Janay Waters MD Primary Care Provide r Reason for Visit * Reason Onset Date Comments Advice 08/21/2023 Encounter Details Date Type Department Care Team (Late st Contact Info) Description 08/21/2023 Telephone Hematology/Oncology [facility] [place] 200 [facility] [place] [phone] Walter Quintero MD 200 [facility] [address] Advice Allergies Active Allergy Reactions Criticality Noted Date Comments Azithromycin Nausea/vomiting High 09/03/2017 Codeine 12/16/2016 documented as of this encounter (statuses as of 11/20/2023) Medications Medication Sig Dispensed Refills Start Date [...] 25 MG Oral Tablet (Hydrodiuril) 0 Active documented as of this encounter (statuses as of 11/20/2023) Active Problems Problem Noted Date Diagnosed Date [...] as of this encounter (statuses as of 11/20/2023) Resolved Problems Problem Noted Date Diagnosed Date Resolved Date Hematuria 12/16/2016 07/17/2017 documented as of this encounter (statuses as of 11/20/2023) Immunizations Name Administration Dates Next Due COVID-19 mRNA, LNP-s, No Pre serve, 2-Dose Series ([employer]) 11/13/2020,10/16/2020 Pneumococcal Conjugate Vacc, 13 Valent (Prevnar) [...] Telephone Encounter - Keyla Kelley RN - 08/21/2023 12:36 PM EST Patient already called back and moved all appts. Dr Quintero: FYI * Telephone Encounter - Judy Sewell OSA - 08/21/2023 11:08 AM EST Pt called wanting to know if her winter appts and PET scan can be moved to the spring and she is uncomfortable traveling in the weather. Please reach out to advise. Thank You! documented in this encounter Plan of Treatment Upcoming Encounters Date Type Department Care Team (Late st Contact Info) Description 01/23/2024 1:00 PM EDT Laboratory Laboratory [address] [place] [phone] [address] [place] [address] 02/03/2024 1:45 PM EDT Imaging Radiology [address], [place] [address] [place] [address] 02/06/2024 2:45 PM EDT Office Visit Hematology/Oncology [facility] [place] 200 [facility] [place] [phone] Walter Quintero MD 200 [facility] [place] [address] Health Maintenance Due Date Last Done Comments [...] documented as of this encounter Care Teams Chicle Grinder Feeder Relationship Specialty Start Date End Date Janay Waters MD [address] [place] [address] [place] [address] PCP - General Family Medicine 05/02/22 documented as of this encounter
--- OUTSIDE RECORDS SUMMARY | 2024-04-28 21:09 | External Medical Summary ---
Author Name Unknown Address Unknown Organization K01:LABORATORY [facility] - [address] [place] [address] Laboratory Report Ordering Provider Test Date Status NILSON SOMMER 01/22/2024 16:49:59 Final Observation Date Value Abnormality Reference (Units ) Status Folic Acid 01/22/2024 16:49:59 >20.0 >4.5 (ng/ mL) Final Performing Location LABORATORY [facility] - [address] [place] [address]
[2024-04-28] MEDS: busPIRone 5 MG TAB PO SCH (22:57)
[2024-04-28] MEDS: CHOLESTYRAMINE LIGHT 4 GM PKT PO SCH (22:57)
[2024-04-28] MEDS: DIVALPROEX DELAY RELEASE 500 MG TAB PO SCH (22:57)
[2024-04-29] MEDS ORDERED: Nursing to Pharmacy Communication SCH (00:15)
[2024-04-29] MEDS: PIPERACILLIN/TAZOBACTAM 4.5 GM/100 ML BAG IV SCH (00:39)
--- OUTSIDE RECORDS SUMMARY | 2024-04-29 04:07 | External Medical Summary | Summary of Care ---
Author Name Unknown Organization [facility] Address [address] [place] [address] Phone [phone] Care Team Providers Care Rail Operations Controller Name Role Phone Janay Waters MD Primary Care Provide r Reason for Visit * Reason Comments Acute Encounter Details Date Type Department Care Team (Late st Contact Info) Description 04/28/2024 12:00 PM EDT Office Visit Family Medicine [address] [phone] Maria Luz Vora PA-C [address] [place] [address] [place] [address] Edema of both lower legs* Allergies Active Allergy Reactions Criticality Noted Date Comments Azithromycin Nausea/vomiting High 09/03/2017 Codeine Low 08/05/2014 Other Reaction(s): Nausea, Not available, Vomiting documented as of this encounter (statuses as of 04/28/2024) Medications Medication Sig Dispensed Refills Start Date [...] as of this encounter (statuses as of 04/28/2024) Active Problems Problem Noted Date Diagnosed Date [...] as of this encounter (statuses as of 04/28/2024) Resolved Problems Problem Noted Date Diagnosed Date Resolved Date Hematuria 12/16/2016 07/17/2017 documented as of this encounter (statuses as of 04/28/2024) Immunizations Name Administration Dates Next Due COVID-19 [...] No 01/30/2024 Does the household have a [facility] source of income? (Household - for [...] Sign Reading Time Taken Comments Blood Pressure 102/50 04/28/2024 11:50 AM EDT Pulse 89 04/28/2024 11:50 AM EDT Temperature 37.6 C (99.6 F) 04/28/2024 11:50 AM E DT Respiratory Rate - - Oxygen Saturation 98% 04/28/2024 11:50 AM EDT Inhaled Oxygen Concentration - - Weight 63.5 kg (140 lb) 04/28/2024 11:50 AM EDT Height - - Body Mass Index 25.86 01/22/2024 3:35 PM EDT documented in this encounter Progress Notes * Maria Luz Vora PA-C - 04/28/2024 11:55 AM EDT Nursing Notes: Flaquita Rodriges [place], BPO SPECIALIST 04/28/24 1153 Sign at exiting of workspace Leg swelling, weight gain Did take Keflex that was sent in. Pt here today with ongoing swelling in legs, redness. The cephalexin didn't help. She has gained 15lbs. Pt denies SOB. Pt does have a low grade temp. Review of patient's allergies indicates: Allergen Reactions [...] BP (blood pressure) < 140/90 Renal cyst Social History Socioeconomic History Marital status: Spouse [...] Social Determinants of Health Financial Resource Strain: Low Risk (01/30/2024) Financial Resource Strain Do you have any trouble paying for your medications, or do you think you might in the future? (Adult - for ages 18 years and over): No Does your family have trouble paying for medicine? (Household - for ages 0-17 years): Not on file Food Insecurity: No Food Insecurity (01/30/2024) Food Insecurity Do you need food for this week? (Adult - for ages 18 years and over): No Are you able to get enough food for your family? (Household - for ages 0-17 years): Not on file Does your family need food this week? (Household - for ages 0-17 years): Not on file Do you always have enough food for your family? (Household - for ages 0-17 years): Not on file Transportation Needs: No Transportation Needs (01/30/2024) Transportation Needs Do you have trouble getting a ride to medical visits or work? (Adult - for ages 18 years and over):Never True Does your family have a hard time getting a ride to doctors visits? (Household - for ages 0-17 years): Not on file Has lack of transportation kept you from medical appointments, meetings, work, or from getting things needed for daily living? Check all that apply. (Adult - for ages 18 years and over): Not on file Do you (or your family) have trouble finding or paying for a ride (transportation)? (Household - for ages 0-17 years): Not on file Social Connections: Socially Isolated (01/30/2024) Social Connections How often do you feel lonely or isolated from those around you? (Adult - for ages 18 years and over): Often Housing Stability: Low Risk (01/30/2024) Housing Stability Do you currently live in a care home or have no steady place to sleep at night? (Adult - for ages 18 years and over): No Do you think you are at risk of becoming homeless? (Adult - for ages 18 years and over): No Does your family worry about paying for your home or becoming homeless? (Household - for ages 0-17 years): Not on file Are you homeless or worried that you might be in the future? (Adult - for ages 18 years and over): Not on file Are you (or your family) homeless or worried that you might be in the future? (Household - for ages0-17 years): Not on file O:Blood pressure 102/50, pulse 89, temperature 37.6 C (99.6 F), temperature source Tympanic, weight 63.5 kg (140 lb), SpO2 98%. GENERAL: alert, healthy, and no distress EXTREMITIES: BLE - edema, erythema up to knees - with blisters, drainage. A few small open areas. Tenderness A:Edema of both lower legs (Primary) Pt will go to [facility] for evaluation - due to fever, redness/swelling at legs. Any questions/problems, please call. If anything changes, worsens, develops new sx, please call [facility]. will take her over. Follow Up: Return if symptoms worsen or fail to improve. Maria Luz Vora PA-C documented in this encounter Nursing Notes * Flaquita Rodriges LPN - 04/28/2024 11:51 AM EDT Leg swelling, weight gain Did take Keflex that was sent in. documented in this encounter Plan of Treatment Upcoming Encounters Date Type Department Care Team (Late st Contact Info) Description 07/02/2024 2:00 PM EDT Office Visit Neurology [address] [place] [address] Greta Valverde CRNP 100 [facility] [address] 07/05/2024 2:30 PM EDT Laboratory Laboratory [address] [place] [phone] [address] [place] [address] 08/11/2024 2:45 PM EST Office Visit Hematology/Oncology [facility] 200 [facility] [place] [phone] Walter Quintero MD 200 [facility] [place] [address] 09/09/2024 1:30 PM EST Nurse Only Ancillary [address] [place] [address] [place], Nurse Annual Wellness [address] [place] [address] [place] [address] 11/10/2024 3:20 PM EST Office Visit Family Medicine [address] [place] [phone] Janay Waters MD [address] [place] [address] [place] [address] Health Maintenance Due Date Last Done Comments [...] as of this encounter Visit Diagnoses Diagnosis Edema of both lower legs- Primary documented in this encounter Additional Health Concerns Infection Onset Date Last Indicated Resolved Time Tuberculosis Rule-Out 02/21/2023 02/21/2023 documented as of this encounter Care Teams Rail Operations Controller Relationship Specialty Start Date End Date Janay Waters MD [address] [place] [address] [place] [address] PCP - General Family Medicine 05/02/22 documented as of this encounter
[2024-04-29 07:59] LABS: Basophils # (auto) 0.03 K/uL (0.00-0.20); Basophils % (auto) 0.6 %; Eosinophils # (auto) 0.08 K/uL (0.00-0.50); Eosinophils % (auto) 1.5 %; Hematocrit (blood only) 27.7 % (37.0-47.0); Immature Granulocytes # (auto) 0.01 K/uL (0.01-0.20); Immature Granulocytes % (auto) 0.2 %; Lymphocytes # (auto) 1.25 K/uL (1.20-3.40); Lymphocytes % (auto) 23.1 %; Mean Corpuscular Hemoglobin 31.4 pg (25.0-34.0); Mean Corpuscular Hgb Conc 32.5 g/dL (32.0-36.0); Mean Corpuscular Volume 96.5 fL (80.0-100.0); Mean Platelet Volume 9.9 fL (9.4-12.4); Monocytes # (auto) 0.93 K/uL (0.11-0.59); Monocytes % (auto) 17.2 %; Neutrophils % (auto) 57.4 %; Platelet Count 171 K/uL (130-400); RDW Coefficient of Variation 15.3 % (11.5-14.5); RDW Standard Deviation 54.4 fL (36.4-46.3); Red Blood Count 2.87 M/uL (4.20-5.40)
[2024-04-29 08:23] LABS: BUN Creatinine Ratio 28.7 (10-20); Calcium 8.6 mg/dl (8.6-10.3); Creatinine Clr Calc Pharmacy 47.2 ml/min; Est GFR (African American) 69.3 ml/min; Est GFR (Non-African American) 59.8 ml/min; Magnesium 1.9 mg/dl (1.7-2.4); Potassium 3.8 mmol/L (3.5-5.1)
[2024-04-29] MEDS: FUROSEMIDE 40 MG/4 ML VIAL IV SCH (09:01)
[2024-04-29] MEDS: VANCOMYCIN HCL 750 MG in SODIUM CHLORIDE 0.9% 250 ML IV SCH (09:01)
[2024-04-29] MEDS: ENOXAPARIN INJ 40 MG/0.4 ML SYR SQ SCH (09:02)
[2024-04-29] MEDS: FOLIC ACID 1 MG TAB PO SCH (09:03)
[2024-04-29] MEDS: FERROUS SULFATE 325 MG TAB PO SCH (09:03)
[2024-04-29] MEDS: SERTRALINE HCL 50 MG TABLET PO SCH (09:03)
[2024-04-29] MEDS: LOSARTAN POTASSIUM 50 MG TAB PO SCH (09:03)
[2024-04-29] MEDS: POTASSIUM CHLORIDE CRTAB 20 MEQ TABCR PO SCH (09:03)
--- NOTE | 2024-04-29 09:39 | Pharmacy Report ---
Pharmacy PK ABX Note - Date of Service April 29, 2024 - Assessment and Plan Assessment 73 year old F receiving Zosyn/vancomycin for treatment of bilateral lower leg cellulitis. Pertinent microbiologic data includes: negative MRSA Nasal Swab (unknown clinical utility with cellulitis). Noted bilateral lower extremities swollen, erythematous, warm with venous streaking per attending. 04/29: Random level ordered this AM to better assist with dosing (Insight Rx predicting supratherapeutic AUC/LITZY prior), level confirming to continue current maintenance dosing. Day # 1 of antimicrobial therapy. Plan Vancomycin * Loading dose: 1500 mg IV x 1 * Maintenance dose: 750 mg IV every 12 hours * Regimen is predicted to achieve target AUC/LITZY of 400-600 mg/L.hr * Random level ordered for: 04/30/24 with AM labs Pharmacy will continue to follow and will adjust dose/frequency as necessary. Thank you. Pharmacy has transitioned to AUC monitoring for vancomycin. AUC/LITZY is the preferred PK/PD target and is associated with decreased risk of nephrotoxicity compared to traditional trough targets.
--- NOTE | 2024-04-29 11:06 | Hospitalist Progress Note ---
Date of Service April 29, 2024 Assessment & Plan (1) Bilateral lower leg cellulitis: Plan: This is a 73 y/o female with chronic lymphedema, venous stasis, DIAMOND, HTN, prior malignant melanoma, bipolar, depression/anxiety and other history as outlined below who presents to the ED with worsening leg edema and redness over the last several days. Clinical picture seems most consistent with cellulitis on top of her underlying chronic venous stasis changes and lymphedema. She also notes worsening lower extremity edema, which is likely in part due to noncompliance with her furosemide and chronic medication regimen. - Admit to [facility] telemetry - continue Vanco/Zosyn - monitor cbc, bmp, vanco levels - Wound care consult for tubigrips - discussed with wound care nurse who will do tubigrips for now for daily monitoring (2) Lymphedema: Plan: Worsening edema, suspect in part due to noncompliance with med regimen continue IV furosemide 40 mg daily for now echo ordered Compression therapy per wound care nurse encourage elevation strict intake and output -outputs not recorded (3) Hypertension: Plan: Chronic, stable continue losartan (4) Venous insufficiency: Plan: Chronic, see plan for #1 (5) Bipolar disorder: Plan: Chronic Continue home regimen (6) Anemia: Plan: hx of DIAMOND in past recent iron screen on 04/02 resulted in normal Iron level at 44 and elevated ferritin at 301 previously serum iron low in january and she received 2 doses of IV venofer, b12/folate have been normal hgb stable, monitor, baseline 9-10. Plan Dispo: admitted to [facility], not yet medically stable for discharge, continue IV antibiotics Code Status: Full code DVT Prophylaxis: Lovenox A total of 51 minutes was spent coordinating, documenting, and providing care for this patient excluding time spent in the performance of separately billed services. This included personally viewing all current laboratories and imaging studies, medication reconciliation, outpatient chart review, and discussion with specialists. Admission and Anticipated Discharge Date Admission Date: April 28, 2024 Supervising Physician Co-Signing Physician Notes Patient seen and examined at bedside. Will continue vancomycin for bilateral lower extremity cellulitis. DC Zosyn. Continue to monitor for improvement of redness/swelling PT OT eval. Possible DC next few days I have reviewed the advanced practitioner's documentation, and I agree with, and take responsibility for the plan of care I spent a total of 35 minutes coordinating, documenting, and providing care for this patient excluding time spent in the performance of separately billed services. All of the aforementioned completed while collaborating with the assigned advanced practitioner for a full treatment plan Subjective Pt was seen and examined in room 262-2. Follow up lower ext cellulitis. Pt seen eating a banana. She is complaining of swelling and redness to her legs. She denies f/c/s, chest pain, sob, n/v/d. Review of Systems Review of Systems: All systems reviewed & are unremarkable except as noted in HPI & below Physical Exam Physical Exam: Gen: WD/WN, elderly, [place], sitting in bedside chair, NAD, A&O x3 HEENT: Normocephalic, atraumatic, conjunctivae moist, sclerae anicteric, mucous membranes moist. Lung: no audible w/r/r CV: b/l lower ext severe lymphedema with b/l erythema and warmth Abdomen: soft, nt Extremities: arom x 4 Skin: Warm, negative turgor. Results & Data Results & Data Vital Signs (Past 12 Hours) Vital Signs Temp Pulse Pulse Resp BP Pulse Ox O2 Del Method 04/29/24 07:34 36.6 C 66 20 135/72 93 Room Air 04/29/24 07:21 72 04/29/24 04:07 36.5 C 60 18 161/74 H 97 Room Air 04/29/24 00:04 86 04/28/24 23:11 36.4 C L 69 18 177/76 H 98 Room Air Laboratory Results Short CBC 04/28/24 04/29/24 Range/Units 13:20 07:04 WBC 5.44 5.40 (4.8-10.8) K/ul Hgb 10.4 L 9.0 L (12.0-16.0) g/dl Hct 32.6 L 27.7 L (37.0-47.0) % Plt Count 203 171 (130-400) K/uL BMP 04/28/24 04/29/24 13:20 07:04 Sodium 140 143 Potassium 4.0 3.8 Chloride 106 105 Carbon Dioxide 29 31 BUN 31 H 27 H Creatinine 0.89 0.94 Glucose 87 95 Calcium 9.2 8.6 Liver Function 04/28/24 Range/Units 13:20 Total Bilirubin 0.3 (0.2-1.0) mg/dl AST 11 L (13-39) U/L ALT 4 L (7-52) U/L Alkaline Phosphatase 71 (34-104) U/L Albumin 4.0 (3.4-5.0) gm/dl I have independently reviewed and interpreted patient's labs cbc, bmp, mag Medications Administered Current Inpatient Medications Acetaminophen (Acetaminophen 325 Mg Tab) 650 mg PO Q4H PRN PRN Reason: Pain or Fever Stop: 05/28/24 18:37 Buspirone HCl (Buspirone 5 Mg Tab) 10 mg PO BID MICHELE Stop: 05/28/24 20:59 Last Admin: 04/29/24 09:03 Dose: 10 mg Cholestyramine Resin (Cholestyramine Light 4 Gm Pkt) 4 gm PO 1000,2200 MICHELE Stop: 05/28/24 21:59 Last Admin: 04/29/24 10:38 Dose: 4 gm Divalproex Sodium (Divalproex Delay Release 500 Mg Tab) 500 mg PO BID MICHELE Stop: 05/28/24 20:59 Last Admin: 04/29/24 09:02 Dose: 500 mg Enoxaparin Sodium (Enoxaparin Inj 40 Mg/0.4 Ml Syr) 40 mg SQ QAM MICHELE Stop: 05/29/24 08:59 Last Admin: 04/29/24 09:02 Dose: 40 mg Ferrous Sulfate (Ferrous Sulfate 325 Mg Tab) 325 mg PO DAILY MICHELE Stop: 05/29/24 08:59 Last Admin: 04/29/24 09:03 Dose: 325 mg Folic Acid (Folic Acid 1 Mg Tab) 1 mg PO DAILY MICHELE Stop: 05/29/24 08:59 Last Admin: 04/29/24 09:03 Dose: 1 mg Furosemide (Furosemide 40 Mg/4 Ml Vial) 40 mg IV DAILY MICHELE Stop: 05/29/24 08:59 Last Admin: 04/29/24 09:01 Dose: 40 mg Piperacillin Sod/Tazobactam Sod (Zosyn) 4.5 gm in 100 mls @ 25 mls/hr IV Q8H MICHELE Stop: 05/06/24 00:00 Last Admin: 04/29/24 10:38 Dose: 25 mls/hr Vancomycin HCl 750 mg/ Sodium (Chloride) 265 mls @ 200 mls/hr IV Q12 MICHELE Stop: 05/06/24 08:59 Last Infusion: 04/29/24 10:44 Dose: Infused Losartan Potassium (Losartan Potassium 50 Mg Tab) 50 mg PO QAM MICHELE Stop: 05/29/24 08:59 Last Admin: 04/29/24 09:03 Dose: 50 mg Miscellaneous Information (Vancomycin Consult Active) 1 each N/A UD PRN PRN Reason: Consult Stop: 05/28/24 16:13 Potassium Chloride (Potassium Chloride Crtab 20 Meq Tabcr) 20 meq PO DAILY MICHELE Stop: 05/29/24 08:59 Last Admin: 04/29/24 09:03 Dose: 20 meq Sertraline HCl (Sertraline Hcl 50 Mg Tablet) 50 mg PO DAILY MICHELE Stop: 05/29/24 08:59 Last Admin: 04/29/24 09:03 Dose: 50 mg (3) Hypertension Hypertension type: unspecified Qualified Code(s): I10 - Essential (primary) hypertension (5) Bipolar disorder Active/Remission status: remission status unspecified Qualified Code(s): F31.9 - Bipolar disorder, unspecified
[2024-04-29] MEDS: ACETAMINOPHEN 325 MG TAB PO PRN (23:37)
[2024-04-30 06:36] LABS: Basophils # (auto) 0.03 K/uL (0.00-0.20); Basophils % (auto) 0.7 %; Eosinophils # (auto) 0.08 K/uL (0.00-0.50); Eosinophils % (auto) 1.8 %; Hematocrit (blood only) 27.8 % (37.0-47.0); Hemoglobin 8.9 g/dl (12.0-16.0); Immature Granulocytes # (auto) 0.01 K/uL (0.01-0.20); Immature Granulocytes % (auto) 0.2 %; Lymphocytes # (auto) 1.35 K/uL (1.20-3.40); Lymphocytes % (auto) 30.8 %; Mean Corpuscular Hemoglobin 30.5 pg (25.0-34.0); Mean Corpuscular Volume 95.2 fL (80.0-100.0); Mean Platelet Volume 9.7 fL (9.4-12.4); Monocytes # (auto) 0.82 K/uL (0.11-0.59); Monocytes % (auto) 18.7 %; Neutrophils # (auto) 2.09 K/uL (1.40-6.50); Neutrophils % (auto) 47.8 %; Platelet Count 156 K/uL (130-400); RDW Coefficient of Variation 15.3 % (11.5-14.5); RDW Standard Deviation 53.5 fL (36.4-46.3); Red Blood Count 2.92 M/uL (4.20-5.40); White Blood Count 4.38 K/ul (4.8-10.8)
[2024-04-30 06:59] LABS: BUN Creatinine Ratio 28.4 (10-20); Calcium 8.5 mg/dl (8.6-10.3); Creatinine Clr Calc Pharmacy 46.8 ml/min; Est GFR (African American) 68.4 ml/min
--- NOTE | 2024-04-30 10:03 | Pharmacy Report ---
Pharmacy PK ABX Note - Date of Service April 30, 2024 - Assessment and Plan Assessment 73 year old F receiving vancomycin for treatment of bilateral lower leg cellulitis. Pertinent microbiologic data includes: negative MRSA Nasal Swab (unknown clinical utility with cellulitis). Noted bilateral lower extremities swollen, erythematous, warm with venous streaking per attending. Patient received course of cephalexin as an outpatient. Zosyn discontinued on 04/29. Renal function stable. Day # 3 of antimicrobial therapy. Plan Vancomycin * Current regimen: 750 mg IV every 12 hours * Random level obtained 04/30/24 resulted as 14.6 mcg/mL. This is predicted to achieve target AUC/LITZY of 400-600 mg/L.hr * Predicted AUC at steady state: 590 mg/L.hr * Continue 750 mg IV every 12 hours * Will repeat level in the next 48-72 hours if therapy is continued and/or change in patient clinical status Pharmacy will continue to follow and will adjust dose/frequency as necessary. Thank you. Pharmacy has transitioned to AUC monitoring for vancomycin. AUC/LITZY is the preferred PK/PD target and is associated with decreased risk of nephrotoxicity compared to traditional trough targets.
--- NOTE | 2024-04-30 10:03 | Hospitalist Progress Note ---
Date of Service April 30, 2024 Assessment & Plan (1) Bilateral lower leg cellulitis: Plan: This is a 73 y/o female with chronic lymphedema, venous stasis, DIAMOND, HTN, prior malignant melanoma, bipolar, depression/anxiety and other history as outlined below who presents to the ED with worsening leg edema and redness over the last several days. Clinical picture seems most consistent with cellulitis on top of her underlying chronic venous stasis changes and lymphedema. She also notes worsening lower extremity edema, which is likely in part due to noncompliance with her furosemide and chronic medication regimen. - Admit to med telemetry - continue Vanco - monitor cbc, bmp, vanco levels - Wound care consult for tubigrips - discussed with wound care nurse who will do tubigrips for now for daily monitoring - will downgrade level of care to med/surg (2) Lymphedema: Plan: Edema improving, lasix discontinued echo EF 60-65%, grade I diastolic dysfunction, aortic valve sclerosis, mild mi tral annular calcification with mild thickening of posterior mitral valve leaflet Compression therapy per wound care nurse encourage elevation strict intake and output -outputs not recorded (3) Hypertension: Plan: Chronic, stable continue losartan (4) Venous insufficiency: Plan: Chronic, see plan for #1 (5) Bipolar disorder: Plan: Chronic Continue home regimen (6) Anemia: Plan: hx of DIAMOND in past recent iron screen on 04/02 resulted in normal Iron level at 44 and elevated ferritin at 301 previously serum iron low in january and she received 2 doses of IV venofer, b12/folate have been normal hgb stable, monitor, baseline 9-10. Plan Dispo: admitted to [facility], not yet medically stable for discharge, continue IV antibiotics Code Status: Full code DVT Prophylaxis: Lovenox A total of 46 minutes was spent coordinating, documenting, and providing care for this patient excluding time spent in the performance of separately billed services. This included personally viewing all current laboratories and imaging studies, medication reconciliation, outpatient chart review, and discussion with specialists. Admission and Anticipated Discharge Date Admission Date: April 28, 2024 Subjective Pt was seen and examined in room 262-2. Follow up lower ext cellulitis. She feels her legs are leg swollen and less painful. She denies f/c/s, chest pain, sob, n/v/d. She is eating well. She is not elevating legs like she should. Review of Systems Review of Systems: All systems reviewed & are unremarkable except as noted in HPI & below Physical Exam Physical Exam: Gen: WD/WN, elderly, [place], sitting in bedside chair, NAD, A&O x3 HEENT: Normocephalic, atraumatic, conjunctivae moist, sclerae anicteric, mucous membranes moist. Lung: no audible w/r/r CV: b/l lower ext severe lymphedema with b/l erythema which has receded from yesterday and no longer warm Abdomen: soft, nt Extremities: arom x 4 Skin: Warm, negative turgor. Results & Data Results & Data Vital Signs (Past 12 Hours) Vital Signs Temp Pulse Pulse Resp BP Pulse Ox O2 Del Method 04/30/24 07:52 36.5 C 61 18 111/70 100 Room Air 04/30/24 07:23 62 04/30/24 05:01 36.6 C 63 16 124/69 97 Room Air 04/30/24 00:06 36.6 C 70 16 137/70 100 Room Air 04/29/24 22:05 72 04/29/24 22:05 Room Air Laboratory Results I have independently reviewed and interpreted patient's labs cbc, bmp, vanco Short CBC 04/30/24 Range/Units 06:05 WBC 4.38 L (4.8-10.8) K/ul Hgb 8.9 L (12.0-16.0) g/dl Hct 27.8 L (37.0-47.0) % Plt Count 156 (130-400) K/uL BMP 04/30/24 06:05 Sodium 141 Potassium 4.0 Chloride 105 Carbon Dioxide 30 BUN 27 H Creatinine 0.95 Glucose 88 Calcium 8.5 L Medications Administered Current Inpatient Medications Acetaminophen (Acetaminophen 325 Mg Tab) 650 mg PO Q4H PRN PRN Reason: Pain or Fever Stop: 05/28/24 18:37 Last Admin: 04/29/24 23:37 Dose: 650 mg Buspirone HCl (Buspirone 5 Mg Tab) 10 mg PO BID [facility] Stop: 05/28/24 20:59 Last Admin: 04/30/24 09:18 Dose: 10 mg Cholestyramine Resin (Cholestyramine Light 4 Gm Pkt) 4 gm PO 1000,2200 [facility] Stop: 05/28/24 21:59 Last Admin: 04/29/24 21:12 Dose: 4 gm Divalproex Sodium (Divalproex Delay Release 500 Mg Tab) 500 mg PO BID [facility] Stop: 05/28/24 20:59 Last Admin: 04/30/24 09:18 Dose: 500 mg Enoxaparin Sodium (Enoxaparin Inj 40 Mg/0.4 Ml Syr) 40 mg SQ QAM MICHELE Stop: 05/29/24 08:59 Last Admin: 04/30/24 09:19 Dose: 40 mg Ferrous Sulfate (Ferrous Sulfate 325 Mg Tab) 325 mg PO DAILY MICHELE Stop: 05/29/24 08:59 Last Admin: 04/30/24 09:18 Dose: 325 mg Folic Acid (Folic Acid 1 Mg Tab) 1 mg PO DAILY MICHELE Stop: 05/29/24 08:59 Last Admin: 04/30/24 09:18 Dose: 1 mg Vancomycin HCl 750 mg/ Sodium (Chloride) 265 mls @ 200 mls/hr IV Q12 MICHELE Stop: 05/06/24 08:59 Last Admin: 04/30/24 09:26 Dose: 200 mls/hr Losartan Potassium (Losartan Potassium 50 Mg Tab) 50 mg PO QAM MICHELE Stop: 05/29/24 08:59 Last Admin: 04/30/24 09:18 Dose: 50 mg Miscellaneous Information (Vancomycin Consult Active) 1 each N/A UD PRN PRN Reason: Consult Stop: 05/28/24 16:13 Potassium Chloride (Potassium Chloride Crtab 20 Meq Tabcr) 20 meq PO DAILY MICHELE Stop: 05/29/24 08:59 Last Admin: 04/30/24 09:22 Dose: 20 meq Sertraline HCl (Sertraline Hcl 50 Mg Tablet) 50 mg PO DAILY [facility] Stop: 05/29/24 08:59 Last Admin: 04/30/24 09:18 Dose: 50 mg (3) Hypertension Hypertension type: unspecified Qualified Code(s): I10 - Essential (primary) hypertension (5) Bipolar disorder Active/Remission status: remission status unspecified Qualified Code(s): F31.9 - Bipolar disorder, unspecified
[2024-05-01 07:27] LABS: Basophils # (auto) 0.05 K/uL (0.00-0.20); Eosinophils # (auto) 0.09 K/uL (0.00-0.50); Eosinophils % (auto) 1.9 %; Hematocrit (blood only) 32.6 % (37.0-47.0); Hemoglobin 10.3 g/dl (12.0-16.0); Immature Granulocytes # (auto) 0.02 K/uL (0.01-0.20); Immature Granulocytes % (auto) 0.4 %; Lymphocytes # (auto) 1.76 K/uL (1.20-3.40); Lymphocytes % (auto) 36.3 %; Mean Corpuscular Hemoglobin 31.3 pg (25.0-34.0); Mean Corpuscular Hgb Conc 31.6 g/dL (32.0-36.0); Mean Corpuscular Volume 99.1 fL (80.0-100.0); Mean Platelet Volume 9.9 fL (9.4-12.4); Monocytes # (auto) 0.73 K/uL (0.11-0.59); Monocytes % (auto) 15.1 %; Neutrophils % (auto) 45.3 %; Platelet Count 171 K/uL (130-400); RDW Standard Deviation 54.9 fL (36.4-46.3); Red Blood Count 3.29 M/uL (4.20-5.40); White Blood Count 4.85 K/ul (4.8-10.8)
[2024-05-01 07:50] LABS: Calcium 9.1 mg/dl (8.6-10.3); Creatinine Clr Calc Pharmacy 50.5 ml/min; Est GFR (Non-African American) 64.7 ml/min; Magnesium 2.2 mg/dl (1.7-2.4); Potassium 4.5 mmol/L (3.5-5.1)
--- NOTE | 2024-05-01 09:27 | Hospitalist Progress Note ---
Date of Service May 01, 2024 Assessment & Plan (1) Bilateral lower leg cellulitis: Plan: This is a 73 y/o female with chronic lymphedema, venous stasis, DIAMOND, HTN, prior malignant melanoma, bipolar, depression/anxiety and other history as outlined below who presents to the ED with worsening leg edema and redness over the last several days. Clinical picture seems most consistent with cellulitis on top of her underlying chronic venous stasis changes and lymphedema. She also notes worsening lower extremity edema, which is likely in part due to noncompliance with her furosemide and chronic medication regimen. - No leukocytosis - continue Vanco - monitor cbc, bmp, vanco levels - Wound care consult for tubigrips - discussed with wound care nurse who will do tubigrips for now for daily monitoring (2) Lymphedema: Plan: Edema improving, lasix discontinued echo EF 60-65%, grade I diastolic dysfunction, aortic valve sclerosis, mild mitral annular calcification with mild thickening of posterior mitral valve leaflet Compression therapy per wound care nurse encourage elevation strict intake and output -outputs not recorded (3) Hypertension: Plan: Chronic, stable continue losartan (4) Venous insufficiency: Plan: Chronic, see plan for #1 (5) Bipolar disorder: Plan: Chronic Continue home regimen (6) Anemia: Plan: hx of DIAMOND in past recent iron screen on 04/02 resulted in normal Iron level at 44 and elevated ferritin at 301 previously serum iron low in january and she received 2 doses of IV venofer, b12/f olate have been normal hgb stable, monitor, baseline 9-10. Plan Dispo: admitted to [facility], not yet medically stable for discharge, continue IV antibiotics Code Status: Full code DVT Prophylaxis: Lovenox Please note the above document was generated using voice recognition software. It may contain grammatical, syntax or spelling errors. Any formal questions or concerns about the content, text or information contained within the body of this dictation should be directly addressed to the provider for clarification Admission and Anticipated Discharge Date Admission Date: April 28, 2024 Subjective Patient seen and examined at bedside. Comfortable; not in distress. Denies fever, chills, chest pain, shortness of breath, abdominal pain or urinary symptoms. No significant overnight events Review of Systems Review of Systems: All systems reviewed & are unremarkable except as noted in Subjective Physical Exam Physical Exam: Gen: WD/WN, elderly, [place], sitting in bedside chair, NAD, A&O x3 HEENT: Normocephalic, atraumatic, conjunctivae moist, sclerae anicteric, mucous membranes moist. Lung: no audible w/r/r CV: b/l lower ext severe lymphedema with b/l erythema; slightly improved Abdomen: soft, nt Extremities: arom x 4 Skin: Warm, negative turgor. Results & Data Results & Data Vital Signs (Past 12 Hours) Vital Signs Temp Pulse Resp BP Pulse Ox O2 Del Method 05/01/24 08:04 36.5 C 71 16 140/65 98 Room Air (3) Hypertension Hypertension type: unspecified Qualified Code(s): I10 - Essential (primary) hypertension (5) Bipolar disorder Active/Remission status: remission status unspecified Qualified Code(s): F31.9 - Bipolar disorder, unspecified
--- NOTE | 2024-05-01 13:30 | Discharge Summary ---
Date of Service May 01, 2024 Admission HPI Per Admitting Provider This is a 73 y/o female with chronic lymphedema, venous stasis, DIAMOND, HTN, prior malignant melanoma, bipolar, depression/anxiety and other history as outlined below who presents to the ED with worsening leg edema and redness over the last several days. History from the patient is somewhat difficult to follow due to her memory issues and tangentiality so additional history was obtained from her at the bedside and from review of her PCP notes from the last six months. Pt has a history of chronic lymphedema and venous stasis for the last several months but apparently this had been improving somewhat when she saw her PCP in February. However, she admits to taking her medications inconsistently and just recently restarted the furosemide daily. She currently has home health nursing who comes about once a week although not on a consistent day so the interval between visits may vary. On 04/17, home nursing notified pt's PCP office that pt was having increased edema and redness in her legs so a ten day course o f cephalexin was called in. Pt reports that she has been taking this as prescribed but also states that she still has several pills left to take. When home nursing was there again on Friday, they noted that patient's weight was up 15 lbs from baseline and that the redness and swelling seemed worse. According to review of the chart, they also noted that patient was getting short of breath with exertion but patient and her adamantly deny this. Pt was seen by PCP office today in follow-up and was referred to the ED for evaluation of cellulitis not responding to oral therapy. Pt reports a subjective fever at home this morning, which was new. She uses a cane to ambulate around the home and a walker when she is out of the home. Admission Exam Per Admitting Provider General: awake, alert, NAD HEENT: no scleral icterus, moist oral mucosa Neck: supple, trachea midline Heart: RRR Lungs: CTA bilaterally Abdomen: soft, NT, +BS Extremities: 3+ edema to just above knees bilaterally, erythema and chronic stasis changes noted from feet to knees, erythema extends above knee on the medial aspect of legs bilaterally, +warmth, no drainage or open areas noted at present. Neurologic: Ox3, moving all extremities, no focal deficits Principal Diagnosis B/l Lower leg Cellultis Discharge Exam Gen: WD/WN, elderly, [place], sitting in bedside chair, NAD, A&O x3 HEENT: Normocephalic, atraumatic, conjunctivae moist, sclerae anicteric, mucous membranes moist. Lung: no audible w/r/r CV: decreased b/l LE erythema and swelling Abdomen: soft, nt Extremities: arom x 4 Skin: Warm, negative turgor. Discharge Data Allergies Allergy/AdvReac Type Severity Reaction Status Date / Time azithromycin Allergy Unknown Verified 04/28/24 16:46 codeine AdvReac Mild Nausea Verified 04/28/24 16:46 Consultations 04/28/24 15:23 ED Decision to Admit Stat Ordered Studies 04/28/24 15:42 US ankle/brachial index ltd Routine Hospital Course (1) Bilateral lower leg cellulitis: (2) Lymphedema: (3) Hypertension: (4) Venous insufficiency: (5) Bipolar disorder: (6) Anemia: Plan This is a 73 y/o female with chronic lymphedema, venous stasis, DIAMOND, HTN, prior malignant melanoma, bipolar, depression/anxiety and other history as outlined below who presents to the ED with worsening leg edema and redness over the last several days. Clinical picture seems most consistent with cellulitis on top of her underlying chronic venous stasis changes and lymphedema. She also notes worsening lower extremity edema, which is likely in part due to noncompliance with her furosemide and chronic medication regimen. Patient was treated with iv antibiotic with vancomycin with improvement of cellulitis. She was also given iv lasix with improvement of edema. Patient was discharged on oral antibiotics. Please note the above document was generated using voice recognition software. It may contain grammatical, syntax or spelling errors. Any formal questions or concerns about the content, text or information contained within the body of this dictation should be directly addressed to the provider for clarification Total Time Total Time Spent Total Time Spent (In Minutes): 35 Total Time Includes: Examination of the Patient, Discharge Planning, Medication Reconciliation, Communication With Other Providers and Other Discharge Plan Discharge Items Patient Disposition: Home - Self-Care Reason For Visit: LE CELLULITIS, INCREASED EDEMA Discharge Diagnosis: Bilateral lower extremity cellulitis Activity: Resume your previous activity Non-emergency contact: Primary Care Provider Call non-emergency contact if: you have any medication questions and your symptoms worsen Follow-up/Referrals: Janay Waters MD [Hospitalist] - 05/06/24 10:00 am (Date & Time 05/06/2024 10:00 AM Provider Ean Cole MD Department Family Medicine [facility] ) Diet: Regular Addtl Attending Provider Instructions: You were admitted to the hospital due to infection of the skin in your legs. You are prescribed following medication: 1) Ampicillin 875 mg twice a day for 7 days 2) Doxycycline 100 mg twice a day for 7 days Please follow-up with your primary care doctor as scheduled Pending Studies at Discharge: No Stand-Alone Forms: My [facility], Smoking Cessation Medications and DC Order Prescriptions: New amoxicillin 875 mg tablet 875 mg PO BID 7 Days Qty: 14 0RF doxycycline hyclate 100 mg capsule 100 mg PO BID 7 Days Qty: 14 0RF Continued losartan 50 mg Tablet 50 mg PO QAM divalproex [Depakote] 500 mg Tablet,Delayed Release (Dr/Ec) 500 mg PO BID ferrous sulfate 325 mg (65 mg iron) Tablet 325 mg PO DAILY buspirone 10 mg tablet 10 mg PO BID folic acid 1 mg Tablet 1 mg PO DAILY sertraline 50 mg tablet 50 mg PO DAILY cholestyramine (with sugar) 4 gram powder in packet 1 ea PO BID potassium chloride 10 mEq tablet,ER particles/crystals 20 meq PO DAILY furosemide 20 mg tablet 40 mg PO DAILY Qty: 90 0RF Discontinued cephalexin 500 mg Capsule 500 mg PO TID Rx Instructions: prescribed 04/17 for ten days but pt still has some left today 04/28 Discharge Orders: Discharge Order (Routine); Ordered 05/01/24 Ordered By: Rafi Rhodes Admission Data Admit Date/Time: 04/28/24 16:14 Attending Provider: Rafi Rhodes Admit Provider: Reji Foster Primary Care Provider: Marilia Padilla Other Providers: Jose Viveros [facility]; Reji Foster
[2024-05-01 14:49] VITALS: BP 103/66; PULSE 73; RESP 18; TEMP 98.2; O2SAT 96
== END 2024-05-01 18:39 | disposition home health service (06) | DRG 603 ==
LOC: ED 13:01 → SUATTDRO 16:14 → EDINP 16:14 → 2W 18:38 → 3N 04-30 17:10